=== PATIENT | female | born 1940 | race Caucasian/White ===

== ENCOUNTER 2018-11-26 12:16 | Outpatient (REF) | payer MEDICARE, MEDICAID, SELFPAY ==
[2018-11-26 13:05] LABS: PHENYTOIN (DILANTIN) < 0.5 ug/mL (10.0-20.0)
== END 2018-11-26 12:36 ==
LOC: LBN 12:16
PROVIDERS: PCP Family Medicine; Visit Provider Family Medicine
DX: G40.909 Epilepsy, unspecified, not intractable, without status epilepticus (principal); Z79.899 Other long term (current) drug therapy; Z51.81 Encounter for therapeutic drug level monitoring
CPT/HCPCS: 80185

== ENCOUNTER 2018-12-02 09:40 | Outpatient (CLI) | payer MEDICARE, MEDICAID, SELFPAY ==
[2018-12-02 10:57] LABS: Absolute Basophil Count 0.01 k/cumm (0.0-0.2); Absolute Eosinophil Count 0.08 k/cumm (0.0-0.7); Absolute Monocyte Count 0.38 k/cumm (0.11-0.7); Absolute Neutrophil Count 2.37 k/cumm (1.2-6.7); Basophils % 0.3; Eosinophils % 2.1; HCT 27.9 % (36.0-46.0); HGB 7.9 g/dL (12.0-15.5); Mean Corp. HGB Concentration 28.3 g/dL (32.0-36.0); Mean Corpuscular Hemoglobin 24.5 pg (27.0-33.0); Mean Corpuscular Volume 86.6 fL (80-95); Mean Platelet Volume 9.2 fL (8.0-11.0); Monocytes % 9.9; Neutrophils % 61.7; Platelet Count 215 x1000/uL (130-400); RBC 3.22 m/cumm (4.00-5.20); White Blood Cell Count 3.84 k/cumm (4.4-10.8)
[2018-12-02 11:26] LABS: Anisocytosis 3+; Diff Comment RBC Morph Reviewed; Hypochromasia 3+; Microcytosis 3+
[2018-12-02 11:27] LABS: Poikilocytes 1+
[2018-12-02 11:52] LABS: BUN 15 mg/dL (7-18); CREATININE 0.55 mg/dL (0.55-1.02); Calcium 8.2 mg/dL (8.5-10.1); Chloride 102 mmol/L (98-107); Glucose 109 mg/dL (70-100); Potassium 4.4 mmol/L (3.5-5.1); Sodium 139 mmol/L (136-145)
== END 2018-12-02 10:00 ==
PROVIDERS: PCP Family Medicine; Visit Provider Nurse Practitioner Adult Health
DX: G40.909 Epilepsy, unspecified, not intractable, without status epilepticus (principal); Z79.899 Other long term (current) drug therapy
CPT/HCPCS: 80048; 85025

== ENCOUNTER 2018-12-22 15:58 | Inpatient (IN) | payer MEDICARE, MEDICAID, SELFPAY ==
[2018-12-22] VITALS (17 sets, daily range): BP systolic 97–135; BP diastolic 44–77; PULSE 76–103; RESP 5–35; TEMP 36.5–36.8; O2SAT 95–98
--- NOTE | 2018-12-22 16:09 | W.ED.GENAD ---
Discharge Plan Discharge Details Chief Complaint: GenMedical Admit Date/Time: 12/22/18 19:08 Admit Provider: Ozzy Magaña Attending Provider: Ozzy Magaña Primary Care Provider: Lyle Salinas ED Provider: Olive Maki Discharge Data Discharge Date/Time-TO BE ENTERED AT DEPARTURE: 12/22/18 20:50 Medical Decision Making Kanchan Garcia is a 78 y/o woman with history of CHF, seizure disorder, hypertension, diabetes with recent admission to [facility] for bilateral pulmonary emboli, pleural effusion requiring thoracentesis, and pericardial effusion who presented to the emergency department for progressive weight gain at [facility]. On exam patient is elderly but nontoxic appearing. She is in no respiratory distress. She has bilateral pitting edema of the lower extremities without posterior calf tenderness to palpation. Heart rate is approximately 100. Hemoccult is positive. Concern for worsening edema anemia, volume overload, metabolic/lyte derangement, less likely ACS or infectious process. Exam/history is not consistent with worsening pulmonary emboli burden, sepsis, acute aortic pathology. Plan for EKG, chest x-ray, screening labs. Telemetry. Hemoglobin found to be 7 decreased from 7.9 on 12/02. BNP elevated as compared to BNP in the 600 range at [facility] prior to [facility] admission. Plan for admission for blood transfusion and management/further evaluation of CHF. Bedside ultrasound shows small pericardial effusion without tamponade. Patient consented to blood transfusion in the emergency department. Clinical Impression: anemia, CHF Disposition: [facility] inpatient Medical Records Medical records reviewed: Yes I reviewed the patient's medical records. Imaging Data Radiologic Study: Attestation: I personally reviewed and interpreted this imaging study as follows: Radiologist's impression: XR Chest, 2 Views EXAM DATE/TIME: 12/22/2018 5:03 PM CLINICAL HISTORY: 78 years old, female; Signs and symptoms; Shortness of breath and other: Weight gain TECHNIQUE: Imaging protocol: XR of the chest, 2 views. COMPARISON: CR XR CHEST 2V PA LATERAL 12/17/2018 8:49 AM FINDINGS: Lungs: Diffuse prominence of interstitial markings. More pronounced patchy airspace of opacities seen in the bilateral infrahilar regions, however more prominent in the left retrocardiac region. Subtle groundglass opacities also suggested throughout the lungs. Pleural space: Small bilateral pleural effusions are present, slightly larger on the left. There is also fluid layering along the right minor fissure. Heart/Mediastinum: There is severe cardiomegaly. Vasculature: Calcified aortic knob. Bones/joints: Stable bony thorax without acute thoracic pathology. IMPRESSION: Main diagnostic consideration would be that of early CHF, as manifested by interstitial and early alveolar pulmonary edema, as well as small bilateral pleural effusions. Superimposed infectious pneumonia should be entertained in the appropriate clinical setting. Lab Data Lab results reviewed: Yes I reviewed the patient's lab results. 12/22/18 20:34 Nose MRSA Screen - Pending Laboratory Tests Range/Units 12/22/18 12/22/18 12/22/18 17:15 17:15 17:15 WBC (4.4-10.8) k/cumm 5.33 RBC (4.00-5.20) m/cumm 2.62 L Hgb (12.0-15.5) g/dL 7.0 L Hct (36.0-46.0) % 23.9 L MCV (80-95) fL 91.2 MCH (27.0-33.0) pg 26.7 L MCHC (32.0-36.0) g/dL 29.3 L RDW (11.7-14.6) % 20.2 H Plt Count (130-400) x1000/uL 251 MPV (8.0-11.0) fL 8.4 Immature Gran % 0.2 Neutrophils % 65.8 Lymphocytes % 19.3 Monocytes % 12.4 Eosinophils % 1.9 Basophils % 0.4 Absolute Neutrophils (1.2-6.7) k/cumm 3.51 Absolute Lymphocytes (1.2-3.4) k/cumm 1.03 L Absolute Monocytes (0.11-0.7) k/cumm 0.66 Absolute Eosinophils (0.0-0.7) k/cumm 0.10 Absolute Basophils (0.0-0.2) k/cumm 0.02 Differential Comment Rbc morph reviewed RBC Morphology See below Polychromasia Present Hypochromasia 2+ Anisocytosis 2+ D-Dimer (<500) ng/mlFEU Sodium (136-145) mmol/L 140 Potassium (3.5-5.1) mmol/L 3.6 Chloride (98-107) mmol/L 100 Carbon Dioxide (21.0-32.0) mmol/L 36.3 H Anion Gap (3-11) mmol/L 3.7 BUN (7-18) mg/dL 10 Creatinine (0.55-1.02) mg/dL 0.49 L Estimated GFR/1.73 m2 (mL/min/1.73m2) >= 60.00 Glucose (70-100) mg/dL 119 H Calcium (8.5-10.1) mg/dL 7.9 L Total Bilirubin (0.2-1.0) mg/dL < 0.1 L AST (15-37) U/L 12 L ALT (12-78) U/L 14 Alkaline Phosphatase (46-116) U/L 84 Troponin I (0.00-0.06) ng/mL 0.05 NT-Pro-B Natriuret Pep ( - 299) pg/mL 2885 H Total Protein (6.4-8.2) g/dL 5.8 L Albumin (3.4-5.0) g/dL 2.4 L TSH (0.358-3.74) uIU/mL 3.30 Crossmatch Range/Units 12/22/18 12/22/18 17:15 20:11 WBC (4.4-10.8) k/cumm RBC (4.00-5.20) m/cumm Hgb (12.0-15.5) g/dL Hct (36.0-46.0) % MCV (80-95) fL MCH (27.0-33.0) pg MCHC (32.0-36.0) g/dL RDW (11.7-14.6) % Plt Count (130-400) x1000/uL MPV (8.0-11.0) fL Immature Gran % Neutrophils % Lymphocytes % Monocytes % Eosinophils % Basophils % Absolute Neutrophils (1.2-6.7) k/cumm Absolute Lymphocytes (1.2-3.4) k/cumm Absolute Monocytes (0.11-0.7) k/cumm Absolute Eosinophils (0.0-0.7) k/cumm Absolute Basophils (0.0-0.2) k/cumm Differential Comment RBC Morphology Polychromasia Hypochromasia Anisocytosis D-Dimer (<500) ng/mlFEU 560 H Sodium (136-145) mmol/L Potassium (3.5-5.1) mmol/L Chloride (98-107) mmol/L Carbon Dioxide (21.0-32.0) mmol/L Anion Gap (3-11) mmol/L BUN (7-18) mg/dL Creatinine (0.55-1.02) mg/dL Estimated GFR/1.73 m2 (mL/min/1.73m2) Glucose (70-100) mg/dL Calcium (8.5-10.1) mg/dL Total Bilirubin (0.2-1.0) mg/dL AST (15-37) U/L ALT (12-78) U/L Alkaline Phosphatase (46-116) U/L Troponin I (0.00-0.06) ng/mL NT-Pro-B Natriuret Pep ( - 299) pg/mL Total Protein (6.4-8.2) g/dL Albumin (3.4-5.0) g/dL TSH (0.358-3.74) uIU/mL Crossmatch See Detail ECG Data Attestation: I personally reviewed and interpreted this ECG (s) as follows: Interpretation: EKG shows sinus rhythm at 83, normal axis, anterior T wave inversions, no prior available HPI General Mode of arrival: EMS. Date/Time Provider Initiated Documentation: 12/22/18 16:09. Limitations to Documentation: no limitations. Information obtained by: patient, RN notes reviewed and old records reviewed. HPI Narrative: Kanchan Garcia is a 78 y/o woman with history of CHF, meningioma, seizure disorder, hypertension, diabetes who is currently residing at [facility] who was sent to the emergency department for weight gain. Per records sent from alf, patient [place] [facility] with concerns for possible [place], there she was found to have CHF. She was transferred to [facility] where she was treated for respiratory distress, CHF, bilateral pulmonary emboli, pleural effusion with thoracentesis, and pericardial effusion. Patient was discharged to [facility]. On 12/02 she had a hemoglobin of 7.9. She has gained approximately 20 pounds since December 10. Patient reports that she feels very well and has no symptoms. She does note swelling in her lower extremities, but she is unsure if this is worse than baseline. She denies cough, shortness of breath, fever, vomiting, diarrhea, or any pain. Related Data Home Medications Medication Instructions Recorded Confirmed metformin 1,000 mg PO BID 11/03/13 12/22/18 metoprolol succinate 12.5 mg PO DAILY 11/03/13 12/22/18 simvastatin 10 mg PO HS 11/03/13 12/22/18 acetaminophen 325 mg PO Q6H PRN 12/22/18 12/22/18 aspirin 81 mg PO DAILY 12/22/18 12/22/18 bisacodyl 10 mg DE DAILY PRN PRN 12/22/18 12/22/18 cyanocobalamin (vitamin B-12) 1,000 mcg PO DAILY 12/22/18 12/23/18 [Vitamin B-12] ferrous sulfate 325 mg PO DAILY 12/22/18 12/22/18 folic acid 800 mg PO DAILY 12/22/18 12/22/18 furosemide [Lasix] 20 mg PO DAILY 12/22/18 12/22/18 glucagon (human recombinant) 1 mg SUBCUT DIRECTED 12/22/18 12/22/18 [Glucagon Emergency Kit (human)] glucose 10 g PO ONCE PRN 12/22/18 12/22/18 insulin lispro See Rx Instructions .ROUTE .COMPLEX 12/22/18 12/22/18 levetiracetam [Keppra] 1,000 mg PO BID 12/22/18 12/22/18 magnesium hydroxide [Milk of 30 ml PO HS PRN 12/22/18 12/22/18 Magnesia] melatonin 6 mg PO .QHS 12/22/18 12/22/18 pantoprazole [Protonix] 40 mg PO DAILY 12/22/18 12/22/18 phenytoin sodium extended 200 mg PO BID 12/22/18 12/22/18 [Dilantin Extended] polyethylene glycol 3350 [Miralax] 17 gm PO DAILY PRN PRN 12/22/18 12/22/18 warfarin [Coumadin] 7.5 mg PO QPM 12/22/18 12/22/18 Allergies Allergy/AdvReac Type Severity Reaction Status Date / Time No Known Allergies Allergy Unverified 12/22/18 16:28 Review of Systems Review of Systems Constitutional: denies fevers Eyes: denies eye pain ENT: denies facial pain, dental pain, sore throat Cardiovascular: denies chest pain, reports lower extremity edema Respiratory: denies SOB, cough GI: denies abdominal pain, vomiting, diarrhea : denies flank pain MSK: denies back pain, neck pain, arthralgias, myalgias Skin: denies rash Neuro: denies headaches, numbness, weakness PFSH Medical History Pericardial effusion without cardiac tamponade (Chronic) H/O carotid atherosclerosis (Chronic) Adenomatous polyp (Chronic) History of meningioma of the brain (Chronic) Seizure disorder (Chronic) Essential hypertension (Chronic) Diabetes type 2, controlled (Chronic) Diastolic heart failure (Chronic ~10/2018) Hypercapnic respiratory failure (Resolved ~10/2018) Adenomatous polyp Diabetes mellitus Hypercholesterolemia Hypertension Murmur Osteopenia Tobacco use Surgical History History of right-sided carotid endarterectomy (Chronic) BTL Colonoscopy - MAC (07/15/17) Endarterectomy, right Extraction of cataract Family History Mother Essential hypertension ASCVD (arteriosclerotic cardiovascular disease) Father Essential hypertension Social History Smoking/Tobacco Use Status: Former Tobacco Use Drug use: Never Exam Narrative Exam Narrative: Constitutional: Elderly but [id number], pleasant, conversing normally HENT: head atraumatic/normocephalic/normal inspection, mucous membranes moist Eyes: conjunctiva normal, sclera normal, pupils 3mm b/l Neck: no stridor, normal ROM, trachea midline Chest: normal inspection Resp: normal work of breathing, rales bilateral lower lobes Cardio: normal rate, normal rhythm, no murmur appreciated GI: abdomen soft, non-tender, non-distended, hemoccult positive, otherwise normal rectal exam Back: normal inspection, no rash Skin: warm, dry, normal color, no rash Neuro: alert, not altered, grossly non-focal, normal tone Ext: 2-3+ pitting edema bilateral lower extremities, no posterior calf tenderness Psych: normal mood, normal affect, normal behavior
--- NOTE | 2018-12-22 17:01 | DI.RAD_ITS ---
SYMPTOMS/DIAGNOSIS: WT GAIN, ? SOB AP AND LATERAL CHEST: Comparison is made with [id number]. The heart is again noted to be grossly enlarged. There are small bilateral pleural effusions. There is vascular prominence and mildly increased interstitial markings which may indicate mild CHF. IMPRESSION: Cardiomegaly and mild CHF.
[2018-12-22 17:40] LABS: Abs Immature Grans 0.01 k/cumm (0.0-0.09); Absolute Basophil Count 0.02 k/cumm (0.0-0.2); Absolute Lymphocyte Count 1.03 k/cumm (1.2-3.4); Absolute Monocyte Count 0.66 k/cumm (0.11-0.7); Absolute Neutrophil Count 3.51 k/cumm (1.2-6.7); Basophils % 0.4; Eosinophils % 1.9; HCT 23.9 % (36.0-46.0); Immature Grans % 0.2; Lymphocytes % 19.3; Mean Corp. HGB Concentration 29.3 g/dL (32.0-36.0); Mean Corpuscular Hemoglobin 26.7 pg (27.0-33.0); Mean Corpuscular Volume 91.2 fL (80-95); Mean Platelet Volume 8.4 fL (8.0-11.0); Monocytes % 12.4; Neutrophils % 65.8; Platelet Count 251 x1000/uL (130-400); RBC 2.62 m/cumm (4.00-5.20); RBC Distribution Width 20.2 % (11.7-14.6); White Blood Cell Count 5.33 k/cumm (4.4-10.8)
[2018-12-22 17:52] LABS: ALT 14 U/L (12-78); AST 12 U/L (15-37); Albumin 2.4 g/dL (3.4-5.0); Alkaline Phosphatase 84 U/L (46-116); Anion Gap 3.7 mmol/L (3-11); BUN 10 mg/dL (7-18); CO2 36.3 mmol/L (21.0-32.0); CREATININE 0.49 mg/dL (0.55-1.02); Calcium 7.9 mg/dL (8.5-10.1); Chloride 100 mmol/L (98-107); Glucose 119 mg/dL (70-100); Potassium 3.6 mmol/L (3.5-5.1); Sodium 140 mmol/L (136-145); Total Protein 5.8 g/dL (6.4-8.2)
[2018-12-22 17:57] LABS: Bilirubin, Total < 0.1 mg/dL (0.2-1.0)
[2018-12-22 17:58] LABS: Anisocytosis 2+; Diff Comment RBC Morph Reviewed; Hypochromasia 2+; NT-proBNP 2885 pg/mL; Polychromasia Present; Troponin I 0.05 ng/mL (0.00-0.06)
[2018-12-22 18:00] LABS: D-Dimer 560 ng/mlFEU (<500)
--- NOTE | 2018-12-22 18:10 | DI.VRAD_ITS ---
EXAM: XR Chest, 2 Views EXAM DATE/TIME: 12/22/2018 5:03 PM CLINICAL HISTORY: 78 years old, female; Signs and symptoms; Shortness of breath and other: Weight gain TECHNIQUE: Imaging protocol: XR of the chest, 2 views. COMPARISON: CR XR CHEST 2V PA LATERAL 12/17/2018 8:49 AM FINDINGS: Lungs: Diffuse prominence of interstitial markings. More pronounced patchy airspace of opacities seen in the bilateral infrahilar regions, however more prominent in the left retrocardiac region. Subtle groundglass opacities also suggested throughout the lungs. Pleural space: Small bilateral pleural effusions are present, slightly larger on the left. There is also fluid layering along the right minor fissure. Heart/Mediastinum: There is severe cardiomegaly. Vasculature: Calcified aortic knob. Bones/joints: Stable bony thorax without acute thoracic pathology. IMPRESSION: Main diagnostic consideration would be that of early CHF, as manifested by interstitial and early alveolar pulmonary edema, as well as small bilateral pleural effusions. Superimposed infectious pneumonia should be entertained in the appropriate clinical setting. Dictated and Authenticated by: Armen Altamirano MD. Ordering:JENNIFER Schaefer MD
--- NOTE | 2018-12-22 20:43 | ED.GENADUL_ITS ---
Discharge Plan Discharge Details Chief Complaint: GenMedical Admit Date/Time: 12/22/18 19:08 Admit Provider: Ozzy Magaña Attending Provider: Ozzy Magaña Primary Care Provider: Lyle Salinas ED Provider: Olive Maki Discharge Data Discharge Date/Time-TO BE ENTERED AT DEPARTURE: 12/22/18 20:50 Medical Decision Making Kanchan Garcia is a 78 y/o woman with history of CHF, seizure disorder, hypertension, diabetes with recent admission to [facility] for bilateral p ulmonary emboli, pleural effusion requiring thoracentesis, and pericardial effusion who presented to the emergency department for progressive weight gain at [facility]. On exam patient is elderly but nontoxic appearing. She is in no respiratory distress. She has bilateral pitting edema of the lower extremities without posterior calf tenderness to palpation. Heart rate is approximately 100. Hemoccult is positive. Concern for worsening edema anemia, volume overload, metabolic/lyte derangement, less likely ACS or infectious process. Exam/history is not consistent with worsening pulmonary emboli burden, sepsis, acute aortic pathology. Plan for EKG, chest x-ray, screening labs. Telemetry. Hemoglobin found to be 7 decreased from 7.9 on 12/02. BNP elevated as compared to BNP in the 600 range at [facility] prior to [facility] admission. Plan for admission for blood transfusion and management/further evaluation of CHF. Bedside ultrasound shows small pericardial effusion without tamponade. Patient consented to blood transfusion in the emergency department. Clinical Impression: anemia, CHF Disposition: [facility] inpatient Medical Records Medical records reviewed: Yes I reviewed the patient's medical records. Imaging Data Radiologic Study: Attestation: I personally reviewed and interpreted this imaging study as follows: Radiologist's impression: XR Chest, 2 Views EXAM DATE/TIME: 12/22/2018 5:03 PM CLINICAL HISTORY: 78 years old, female; Signs and symptoms; Shortness of breath and other: Weight gain TECHNIQUE: Imaging protocol: XR of the chest, 2 views. COMPARISON: CR XR CHEST 2V PA LATERAL 12/17/2018 8:49 AM FINDINGS: Lungs: Diffuse prominence of interstitial markings. More pronounced patchy airspace of opacities seen in the bilateral infrahilar regions, however more prominent in the left retrocardiac region. Subtle groundglass opacities also suggested throughout the lungs. Pleural space: Small bilateral pleural effusions are present, slightly larger on the left. There is also fluid layering along the right minor fissure. Heart/Mediastinum: There is severe cardiomegaly. Vasculature: Calcified aortic knob. Bones/joints: Stable bony thorax without acute thoracic pathology. IMPRESSION: Main diagnostic consideration would be that of early CHF, as manifested by interstitial and early alveolar pulmonary edema, as well as small bilateral pleural effusions. Superimposed infectious pneumonia should be entertained in the appropriate clinical setting. Lab Data Lab results reviewed: Yes I reviewed the patient's lab results. 12/22/18 20:34 Nose MRSA Screen - Pending Laboratory Tests Range/Units 12/22/18 12/22/18 12/22/18 17:15 17:15 17:15 WBC (4.4-10.8) k/cumm 5.33 RBC (4.00-5.20) m/cumm 2.62 L Hgb (12.0-15.5) g/dL 7.0 L Hct (36.0-46.0) % 23.9 L MCV (80-95) fL 91.2 MCH (27.0-33.0) pg 26.7 L MCHC (32.0-36.0) g/dL 29.3 L RDW (11.7-14.6) % 20.2 H Plt Count (130-400) x1000/uL 251 MPV (8.0-11.0) fL 8.4 Immature Gran % 0.2 Neutrophils % 65.8 Lymphocytes % 19.3 Monocytes % 12.4 Eosinophils % 1.9 Basophils % 0.4 Absolute Neutrophils (1.2-6.7) k/cumm 3.51 Absolute Lymphocytes (1.2-3.4) k/cumm 1.03 L Absolute Monocytes (0.11-0.7) k/cumm 0.66 Absolute Eosinophils (0.0-0.7) k/cumm 0.10 Absolute Basophils (0.0-0.2) k/cumm 0.02 Differential Comment Rbc morph reviewed RBC Morphology See below Polychromasia Present Hypochromasia 2+ Anisocytosis 2+ D-Dimer (<500) ng/mlFEU Sodium (136-145) mmol/L 140 Potassium (3.5-5.1) mmol/L 3.6 Chloride (98-107) mmol/L 100 Carbon Dioxide (21.0-32.0) mmol/L 36.3 H Anion Gap (3-11) mmol/L 3.7 BUN (7-18) mg/dL 10 Creatinine (0.55-1.02) mg/dL 0.49 L Estimated GFR/1.73 m2 (mL/min/1.73m2) >= 60.00 Glucose (70-100) mg/dL 119 H Calcium (8.5-10.1) mg/dL 7.9 L Total Bilirubin (0.2-1.0) mg/dL < 0.1 L AST (15-37) U/L 12 L ALT (12-78) U/L 14 Alkaline Phosphatase (46-116) U/L 84 Troponin I (0.00-0.06) ng/mL 0.05 NT-Pro-B Natriuret Pep ( - 299) pg/mL 2885 H Total Protein (6.4-8.2) g/dL 5.8 L Albumin (3.4-5.0) g/dL 2.4 L TSH (0.358-3.74) uIU/mL 3.30 Crossmatch Range/Units 12/22/18 12/22/18 17:15 20:11 WBC (4.4-10.8) k/cumm RBC (4.00-5.20) m/cumm Hgb (12.0-15.5) g/dL Hct (36.0-46.0) % MCV (80-95) fL MCH (27.0-33.0) pg MCHC (32.0-36.0) g/dL RDW (11.7-14.6) % Plt Count (130-400) x1000/uL MPV (8.0-11.0) fL Immature Gran % Neutrophils % Lymphocytes % Monocytes % Eosinophils % Basophils % Absolute Neutrophils (1.2-6.7) k/cumm Absolute Lymphocytes (1.2-3.4) k/cumm Absolute Monocytes (0.11-0.7) k/cumm Absolute Eosinophils (0.0-0.7) k/cumm Absolute Basophils (0.0-0.2) k/cumm Differential Comment RBC Morphology Polychromasia Hypochromasia Anisocytosis D-Dimer (<500) ng/mlFEU 560 H Sodium (136-145) mmol/L Potassium (3.5-5.1) mmol/L Chloride (98-107) mmol/L Carbon Dioxide (21.0-32.0) mmol/L Anion Gap (3-11) mmol/L BUN (7-18) mg/dL Creatinine (0.55-1.02) mg/dL Estimated GFR/1.73 m2 (mL/min/1.73m2) Glucose (70-100) mg/dL Calcium (8.5-10.1) mg/dL Total Bilirubin (0.2-1.0) mg/dL AST (15-37) U/L ALT (12-78) U/L Alkaline Phosphatase (46-116) U/L Troponin I (0.00-0.06) ng/mL NT-Pro-B Natriuret Pep ( - 299) pg/mL Total Protein (6.4-8.2) g/dL Albumin (3.4-5.0) g/dL TSH (0.358-3.74) uIU/mL Crossmatch See Detail ECG Data Attestation: I personally reviewed and interpreted this ECG (s) as follows: Interpretation: EKG shows sinus rhythm at 83, normal axis, anterior T wave inversions, no prior available HPI General Mode of arrival: EMS . Date/Time Provider Initiated Documentation: 12/22/18 16:09 . Limitations to Documentation: no limitations . Information obtained by: patient, RN notes reviewed and old records reviewed . HPI Narrative: Kanchan Garcia is a 78 y/o woman with history of CHF, meningioma, seizure disorder, hypertension, diabetes who is currently residing at [facility] who was sent to the emergency department for weight gain. Per records sent from alf, patient presented to [facility] in November with concerns for possible [place], there she was found to have CHF. She was transferred to [facility] where she was treated for respiratory distress, CHF, bilateral pulmonary emboli, pleural effusion with thoracentesis, and pericardial effusion. Patient was discharged to [facility]. On 12/02 she had a hemoglobin of 7.9. She has gained approximately 20 pounds since December 10. Patient reports that she feels very well and has no symptoms. She does note swelling in her lower extremities, but she is unsure if this is worse than baseline. She denies cough, shortness of breath, fever, vomiting, diarrhea, or any pain. Related Data Home Medications Medication Instructions Recorded Confirmed metformin 1,000 mg PO BID 11/03/13 12/22/18 metoprolol succinate 12.5 mg PO DAILY 11/03/13 12/22/18 simvastatin 10 mg PO HS 11/03/13 12/22/18 acetaminophen 325 mg PO Q6H PRN 12/22/18 12/22/18 aspirin 81 mg PO DAILY 12/22/18 12/22/18 bisacodyl 10 mg [place] DAILY PRN PRN 12/22/18 12/22/18 cyanocobalamin (vitamin B-12) 1,000 mcg PO DAILY 12/22/18 12/23/18 [Vitamin B-12] ferrous sulfate 325 mg PO DAILY 12/22/18 12/22/18 folic acid 800 mg PO DAILY 12/22/18 12/22/18 furosemide [Lasix] 20 mg PO DAILY 12/22/18 12/22/18 glucagon (human recombinant) 1 mg SUBCUT DIRECTED 12/22/18 12/22/18 [Glucagon Emergency Kit (human)] glucose 10 g PO ONCE PRN 12/22/18 12/22/18 insulin lispro See Rx Instructions .ROUTE .COMPLEX 12/22/18 12/22/18 levetiracetam [Keppra] 1,000 mg PO BID 12/22/18 12/22/18 magnesium hydroxide [Milk of 30 ml PO HS PRN 12/22/18 12/22/18 Magnesia] melatonin 6 mg PO .QHS 12/22/18 12/22/18 pantoprazole [Protonix] 40 mg PO DAILY 12/22/18 12/22/18 phenytoin sodium extended 200 mg PO BID 12/22/18 12/22/18 [Dilantin Extended] polyethylene glycol 3350 [Miralax] 17 gm PO DAILY PRN PRN 12/22/18 12/22/18 warfarin [Coumadin] 7.5 mg PO QPM 12/22/18 12/22/18 Allergies Allergy/AdvReac Type Severity Reaction Status Date / Time No Known Allergies Allergy Unverified 12/22/18 16:28 Review of Systems Review of Systems Constitutional: denies fevers Eyes: denies eye pain ENT: denies facial pain, dental pain, sore throat Cardiovascular: denies chest pain, reports lower extremity edema Respiratory: denies SOB, cough GI: denies abdominal pain, vomiting, diarrhea : denies flank pain MSK: denies back pain, neck pain, arthralgias, myalgias Skin: denies rash Neuro: denies headaches, numbness, weakness PFSH Medical History Pericardial effusion without cardiac tamponade (Chronic) H/O carotid atherosclerosis (Chronic) Adenomatous polyp (Chronic) History of meningioma of the brain (Chronic) Seizure disorder (Chronic) Essential hypertension (Chronic) Diabetes type 2, controlled (Chronic) Diastolic heart failure (Chronic ~10/2018) Hypercapnic respiratory failure (Resolved ~10/2018) Adenomatous polyp Diabetes mellitus Hypercholesterolemia Hypertension Murmur Osteopenia Tobacco use Surgical History History of right-sided carotid endarterectomy (Chronic) BTL Colonoscopy - MAC (07/15/17) Endarterectomy, right Extraction of cataract Family History Mother Essential hypertension ASCVD (arteriosclerotic cardiovascular disease) Father Essential hypertension Social History Smoking/Tobacco Use Status: Former Tobacco Use Drug use: Never Exam Narrative Exam Narrative: Constitutional: Elderly but [id number], pleasant, conversing normally HENT: head atraumatic/normocephalic/normal inspection, mucous membranes moist Eyes: conjunctiva normal, sclera normal, pupils 3mm b/l Neck: no stridor, normal ROM, trachea midline Chest: normal inspection Resp: normal work of breathing, rales bilateral lower lobes Cardio: normal rate, normal rhythm, no murmur appreciated GI: abdomen soft, non-tender, non-distended, hemoccult positive, otherwise normal rectal exam Back: normal inspection, no rash Skin: warm, dry, normal color, no rash Neuro: alert, not altered, grossly non-focal, normal tone Ext: 2-3+ pitting edema bilateral lower extremities, no posterior calf tenderness Psych: normal mood, normal affect, normal behavior
--- NOTE | 2018-12-22 21:21 | W.PM.HP.N ---
Date of service: 12/22/18 Time of Service: 21:21 Assessment and Plan (1) Acute on chronic diastolic CHF (congestive heart failure): Current visit: Yes Status: Acute give parenteral lasix and start on lasix drip overnight to diurese; transfuse PRBC to treat her anemia as she likely has high output CHF from her anemia. Unfortunately she has some atypical antibodies and will require further antibody testing in the a.m. Continue to cycle her troponin levels to rule out ACS although she denies any chest pain/pressure. (2) Anemia: Current visit: Yes Status: Chronic transfuse to Hb over 8 gm, particularly since she has CHF she will not tolerate the tachycardia induced by her anemia. Unclear as to source. Prior rectal exams negative for heme. Will check her stool again and get further iron studies, B12, folate, etc. (3) Diabetes type 2, controlled: Current visit: No Status: Chronic monitor her glucose and cover w/ sliding scale insulin (4) Essential hypertension: Current visit: No Status: Chronic her amlodipine and lisinopril were discontinued while at [facility] and never restarted while at [facility]. Unclear as to why. I will keep her on her toprol and monitor her BP particularly after she gets her transfusion. (5) Seizure disorder: Current visit: No Status: Chronic No hx of recent seizures. She is on two AED's, dilantin and Keppra. History of Present Illness Chief Complaint: 19 lb weight gain, edema, anemia Narrative: 78-year-old female recuperating at [facility] after an admission to [facility] from 10/26 through 11/02/2018 for rule out NV and found to have new onset CHF. Initial work-up demonstrated a proBNP of 639, transthoracic echocardiogram showed preserved ejection fraction of 58% with elevated MIP and LVEDP along with a moderate pericardial effusion with no Anderson nod and large pleural effusion. Despite diuresis the patient worsened and developed lethargy and hypercapnic respiratory failure requiring BiPAP and transferred to [facility] on 11/02/2018. While hospitalized at [facility] she was initially treated in the intensive care unit from November 02 through November 03, 2018 with BiPAP noninvasive positive pressure ventilation and diuresed with IV Lasix. Repeat TTE showed a small pericardial effusion and ejection fraction of 80% with no wall motion abnormality. Chest x-ray showed moderate left-sided pleural effusion. She underwent a diagnostic and therapeutic thoracentesis on November 07, 2018 in which 800 cc of exudative fluid was removed with atypical cytology suggestive of reactive mesothelial cells. Because of continued hypoxemia and need for oxygen subsequent CT of the chest was performed on 11/15/2018 and demonstrates subsegmental pulmonary emboli in the apical segment of the right upper lobe in the lateral basal segment of the right lower lobe. Patient has signs of right heart congestion and strain including enlargement of the right ventricle relative to the left ventricle and enlargement of the right atrium and reflux of contrast in the IVC and hepatic veins. She also had signs of pulmonary arterial hypertension with dilatation of the main pulmonary artery and small bilateral pleural effusions and pericardial effusion. Also an unexpected finding including peripherally calcified fluid attenuation nodule along the anterior margin of the left hepatic lobe measuring 11 x 6 x 7 mm. Duplex scans of the legs was negative for DVT.. Patient was treated initially for her pulmonary emboli with enoxaparin. She was converted to Coumadin for 3 months of therapy. While at the assisted her warfarin dose was adjusted and varied between 7 and 10 mg with the most recent dose being 7.5 mg and her latest INR was 2.2 this morning. Patient was seen and evaluated by Gila Mckinney CNP, on the morning of December 22, 2018 and she noted that the patient has had progressive weight gain over last 2 weeks. Her admission weight was 163 pounds upon admission to [facility]. This reportedly was a 17 pound weight loss due to diuresis while hospitalized at [facility]. Nevertheless her weight went up to 173 pounds on December 04, 2018 and 174 pounds on December 10, 2018 and by December 19, 2018 she was up to 183 pounds and over this past weekend gained another 9 pounds 192 pounds. This is similar to her presentation when she first was admitted to [facility]. She was also noted to be anemic when she was admitted to [facility] with a hemoglobin of 6.6 g which after transfusion noa to 8.6 g and then drifted down to 8.1 g. Reportedly her stool was negative for occult blood. She was transferred to [facility] emergency room because of exacerbation of CHF and concern out of worsening anemia. In the emergency room the patient had routine labs including a CMP that showed normal BUN and creatinine of 10 and 0.49 normal LFTs been elevated proBNP of 2885. Troponin was 0.05. CBC demonstrated worsening anemia with a hemoglobin of 7 g and hematocrit 23.9%. She has a normal white cell count 5300. Chest x-ray was performed and demonstrated diffuse prominent interstitial markings with more pronounced patchy airspace opacities in the bilateral infrahilar regions as well as the left retrocardiac region and subtle groundglass opacities throughout the lungs. She has small bilateral pleural effusions present slightly larger on the left and severe cardiomegaly. These findings are all consistent with CHF exacerbation. Patient is now admitted overnight for blood transfusion and IV diuretics for serial troponin levels to rule out acute coronary syndrome. ECG demonstrates sinus rhythm at a rate of 83 bpm with diffuse anterior T wave abnormalities. Nevertheless the patient denies any symptoms of chest pain or pressure and in fact denies any dyspnea. However the patient is a poor historian and basically denies any pertinent review of systems. Review of Systems Review of Systems All systems reviewed & are unremarkable except as noted in HPI and below Cardiovascular Denies chest pain, Denies chest pain at rest, Reports pedal edema, Reports leg edema, Reports lightheadedness, Denies palpitations, Denies dyspnea and Denies orthopnea Respiratory Denies dyspnea Endocrine Denies palpitations PFSH Medical History Pericardial effusion without cardiac tamponade (Chronic) H/O carotid atherosclerosis (Chronic) Adenomatous polyp (Chronic) History of meningioma of the brain (Chronic) Seizure disorder (Chronic) Essential hypertension (Chronic) Diabetes type 2, controlled (Chronic) Diastolic heart failure (Chronic ~10/2018) Hypercapnic respiratory failure (Resolved ~10/2018) Adenomatous polyp Diabetes mellitus Hypercholesterolemia Hypertension Murmur Osteopenia Tobacco use Surgical History History of right-sided carotid endarterectomy (Chronic) BTL Colonoscopy - MAC (07/15/17) Endarterectomy, right Extraction of cataract Family History Mother Essential hypertension ASCVD (arteriosclerotic cardiovascular disease) Father Essential hypertension Social History Smoking/Tobacco Use Status: Former Tobacco Use Drug use: Never Meds Home Medications Medication Instructions Recorded Confirmed Type metformin 1,000 mg PO BID 11/03/12/22/18 History metoprolol succinate 12.5 mg PO DAILY 11/03/13 12/22/18 History simvastatin 10 mg PO HS 11/03/13 12/22/18 History acetaminophen 325 mg PO Q6H PRN 12/22/18 12/22/18 History aspirin 81 mg PO DAILY 12/22/18 12/22/18 History bisacodyl 10 mg SD DAILY PRN PRN 12/22/18 12/22/18 History cyanocobalamin (vitamin B-12) 1 mcg PO DAILY 12/22/18 12/22/18 History [Vitamin B-12] ferrous sulfate 325 mg PO DAILY 12/22/18 12/22/18 History folic acid 800 mg PO DAILY 12/22/18 12/22/18 History furosemide [Lasix] 20 mg PO DAILY 12/22/18 12/22/18 History glucagon (human recombinant) 1 mg SUBCUT DIRECTED 12/22/18 12/22/18 History [Glucagon Emergency Kit (human)] glucose 10 g PO ONCE PRN 12/22/18 12/22/18 History insulin lispro See Rx Instructions .ROUTE .COMPLEX 12/22/18 12/22/18 History levetiracetam [Keppra] 1,000 mg PO BID 12/22/18 12/22/18 History magnesium hydroxide [Milk of 30 ml PO HS PRN 12/22/18 12/22/18 History Magnesia] melatonin 6 mg PO .QHS 12/22/18 12/22/18 History pantoprazole [Protonix] 40 mg PO DAILY 12/22/18 12/22/18 History phenytoin sodium extended 200 mg PO BID 12/22/18 12/22/18 History [Dilantin Extended] polyethylene glycol 3350 [Miralax] 17 gm PO DAILY PRN PRN 12/22/18 12/22/18 History warfarin [Coumadin] 7.5 mg PO QPM 12/22/18 12/22/18 History Allergies Allergy/AdvReac Type Severity Reaction Status Date / Time No Known Allergies Allergy Unverified 12/22/18 16:28 Exam Const General: cooperative, not in acute distress and ill appearing chronically Nutritional Appearance: overweight Orientation: alert, awake and oriented to person [facility] Head: normal to inspection, no palpable skull fracture, normocephalic and atraumatic Ears: hearing grossly normal bilaterally Face and sinus: normal facial exam Mouth: oral mucosae normal Teeth and gingiva: dentition normal Neck Neck: normal visual inspection, full ROM and no JVD Thyroid: thyroid normal Carotids: bounding pulses and bruit bilaterally Chest Chest: normal inspection of the chest and normal palpation of entire chest wall Resp Effort & Inspection: normal respiratory effort Auscultation: rales bilaterally at the base Cardio Jugular venous pressure: no JVD Palpation: normal PMI Rate: regular rate Rhythm: regular rhythm Heart Sounds: S1 normal, S2 normal and murmur systolic early, III/ and at the left sternal border Bruits: no abdominal aortic bruits and carotid bruit bilaterally Pulses: posterior tibial pulses present bilaterally diminished and dorsalis pedis pulses present bilaterally diminished GI Inspection: scar (right upper quadrant) Palpation: soft and no hepatosplenomegaly Percussion: normal to percussion Auscultation: normal bowel sounds General: No CVA tenderness Back/Spine/Pelvis Back: no CVA tenderness Cervical Spine: normal cervical lordosis Thoracic/Lumbar Spine: thoracic and lumbar spine normal to inspection Skin Wounds: wounds noted ulceration sacrum Neuro General: alert, awake, oriented Patient Orientation: Person, Place (she knows that she is in the hospital) and Confused (poor historian; when I asked her about her surgical scars she seemed to know nothing about them), moves all extremities and no focal motor deficits Cranial Nerves: PERRL, accommodation normal, EOM intact bilaterally, no nystagmus, facial strength normal, tongue midline, hearing normal, able to rotate head bilaterally and able to elevate shoulders bilaterally Cognition: abnormal cognition Speech: speech normal Motor: muscle tone normal throughout and no movement abnormalities noted Extrem General: full ROM, normal capillary refill, no joint enlargement, edema Laterality: bilateral (2+ edema of both legs and both feet) and pedal edema bilaterally Psych Appearance: grossly normal Speech and Movement: speech and movement normal Mood: congruent mood Affect: normal affect Attitude: cooperative Thought Process: circumstantial Thought Content: normal Insight: limited Judgment: limited Results Imaging Chest x-ray: image reviewed EKG: image reviewed Labs : 12/22/18 17:15 12/22/18 17:15 Laboratory Results - last 24 hr 12/22/18 12/22/18 12/22/18 17:15 17:15 17:15 WBC 5.33 RBC 2.62 L Hgb 7.0 L Hct 23.9 L MCV 91.2 MCH 26.7 L MCHC 29.3 L RDW 20.2 H Plt Count 251 MPV 8.4 Immature Gran % 0.2 Neutrophils % 65.8 Lymphocytes % 19.3 Monocytes % 12.4 Eosinophils % 1.9 Basophils % 0.4 Absolute Neutrophils 3.51 Absolute Lymphocytes 1.03 L Absolute Monocytes 0.66 Absolute Eosinophils 0.10 Absolute Basophils 0.02 Differential Comment Rbc morph reviewed RBC Morphology See below Polychromasia Present Hypochromasia 2+ Anisocytosis 2+ D-Dimer Sodium 140 Potassium 3.6 Chloride 100 Carbon Dioxide 36.3 H Anion Gap 3.7 BUN 10 Creatinine 0.49 L Estimated GFR/1.73 m2 >= 60.00 Glucose 119 H Calcium 7.9 L Total Bilirubin < 0.1 L AST 12 L ALT 14 Alkaline Phosphatase 84 Troponin I 0.05 NT-Pro-B Natriuret Pep 2885 H Total Protein 5.8 L Albumin 2.4 L TSH 3.30 Crossmatch 12/22/18 12/22/18 17:15 20:11 WBC RBC Hgb Hct MCV MCH MCHC RDW Plt Count MPV Immature Gran % Neutrophils % Lymphocytes % Monocytes % Eosinophils % Basophils % Absolute Neutrophils Absolute Lymphocytes Absolute Monocytes Absolute Eosinophils Absolute Basophils Differential Comment RBC Morphology Polychromasia Hypochromasia Anisocytosis D-Dimer 560 H Sodium Potassium Chloride Carbon Dioxide Anion Gap BUN Creatinine Estimated GFR/1.73 m2 Glucose Calcium Total Bilirubin AST ALT Alkaline Phosphatase Troponin I NT-Pro-B Natriuret Pep Total Protein Albumin TSH Crossmatch See Detail Last Vital Signs Temp 36.6 C 12/22/18 16:21 Pulse 103 H 12/22/18 16:21 Resp 16 12/22/18 19:01 BP 123/44 L 12/22/18 16:21 Pulse Ox 96 12/22/18 16:21
[2018-12-22 22:33] LABS: Troponin I 0.04 ng/mL (0.00-0.06)
[2018-12-23] VITALS (149 sets, daily range): BP systolic 88–145; BP diastolic 40–94; PULSE 63–96; RESP 15–35; TEMP 36.4–37.8; O2SAT 85–100
[2018-12-23] MEDS: Warfarin 5 MG TAB 7.5 MG PO (00:06)
[2018-12-23] MEDS: Melatonin 3 MG TAB 6 MG PO ×2 (00:06→21:17)
[2018-12-23] MEDS: Simvastatin 10 MG TAB PO ×2 (00:06→21:17)
[2018-12-23] MEDS: Normal Saline Flush 10 ML SYR IVP ×5 (00:07→19:44)
[2018-12-23] MEDS: Potassium Chloride 10 MEQ CAPCR 20 MEQ PO ×3 (00:14→19:43)
[2018-12-23] MEDS: Furosemide 20 MG/2 ML VIAL IVP (00:15)
[2018-12-23 01:32] LABS: Troponin I 0.04 ng/mL (0.00-0.06)
[2018-12-23 07:54] LABS: Abs Immature Grans 0.01 k/cumm (0.0-0.09); Absolute Basophil Count 0.01 k/cumm (0.0-0.2); Absolute Lymphocyte Count 0.92 k/cumm (1.2-3.4); Absolute Monocyte Count 0.53 k/cumm (0.11-0.7); Absolute Neutrophil Count 2.11 k/cumm (1.2-6.7); Basophils % 0.3; Eosinophils % 2.7; HCT 23.1 % (36.0-46.0); Immature Grans % 0.3; Mean Corp. HGB Concentration 28.1 g/dL (32.0-36.0); Mean Corpuscular Hemoglobin 25.8 pg (27.0-33.0); Mean Corpuscular Volume 91.7 fL (80-95); Mean Platelet Volume 8.6 fL (8.0-11.0); Monocytes % 14.4; Neutrophils % 57.3; Platelet Count 246 x1000/uL (130-400); RBC 2.52 m/cumm (4.00-5.20); Reticulocyte 2.5 % (0.5-2.4); White Blood Cell Count 3.68 k/cumm (4.4-10.8)
[2018-12-23 07:58] LABS: HGB 6.5 g/dL (12.0-15.5)
[2018-12-23 08:15] LABS: Vitamin B12 976 pg/mL (193-986)
[2018-12-23 08:15] LABS: Iron 10 ug/dL (50-175); Total Iron Binding Capacity 193 ug/dL (250-450); Transferrin Sat 5 % (15-50)
[2018-12-23 08:20] LABS: Folate > 20.0 ng/mL (8.6-20.0)
[2018-12-23 08:24] LABS: Anion Gap 1.8 mmol/L (3-11); BUN 10 mg/dL (7-18); CO2 38.2 mmol/L (21.0-32.0); CREATININE 0.44 mg/dL (0.55-1.02); Calcium 7.8 mg/dL (8.5-10.1); Chloride 103 mmol/L (98-107); Ferritin 12 ng/mL (8-388); Glucose 95 mg/dL (70-100); Magnesium 1.1 mg/dL (1.8-2.4); Potassium 3.6 mmol/L (3.5-5.1); Sodium 143 mmol/L (136-145)
[2018-12-23 08:28] LABS: Anisocytosis 3+; Diff Comment Diff Reviewed; Hypochromasia 3+
[2018-12-23 08:29] LABS: Polychromasia Present
[2018-12-23 08:30] LABS: Poikilocytes 2+
[2018-12-23 08:37] LABS: LDH 134 U/L (81-234)
[2018-12-23] MEDS: Aspirin E.C. 81 MG TABEC PO (08:45)
[2018-12-23] MEDS: metFORMIN 500 MG TAB 1000 MG PO (08:45)
[2018-12-23] MEDS: Folic Acid 1 MG TAB PO (08:45)
[2018-12-23] MEDS: levETIRAcetam 500 MG TAB 1000 MG PO ×2 (08:46→19:43)
[2018-12-23] MEDS: Metoprolol CR 25 MG TABCR 12.5 MG PO (08:47)
[2018-12-23] MEDS: Cyanocobalamin 500 MCG TAB 1000 MCG PO (08:58)
[2018-12-23] MEDS: Insulin Aspart 300 UNITS/3 ML PEN SC ×2 (08:59→12:56)
--- NOTE | 2018-12-23 09:10 | MERGE_ITS ---
*[facility]* * Cardiology* [address] [place] [address] Date of study: 12/23/2018 Transthoracic Echocardiography M-mode, complete 2D, complete spectral Doppler, and color Doppler *STUDY CONCLUSIONS* Summary: 1. Left ventricle: The cavity size was normal. Wall thickness was increased in a pattern of moderate LVH. Systolic function was normal. The estimated ejection fraction was 60-65%. Wall motion was normal; there were no regional wall motion abnormalities. Doppler parameters are consistent with high ventricular filling pressure. 2. Right ventricle: The cavity size was normal. Systolic function was normal. 3. Left atrium: The atrium was mildly dilated. 4. Aortic valve: Trileaflet; mildly thickened, mildly calcified leaflets. Valve mobility was restricted. Transvalvular velocity was increased. There was mild stenosis. Peak velocity (S): 2.4m/sec. VTI ratio of LVOT to aortic valve: 0.6. 5. Tricuspid valve: There was moderate regurgitation. 6. Pulmonary arteries: Pulmonary systolic pressure was increased, >= 55mm Hg. 7. Inferior vena cava: The vessel was patent and dilated. The respirophasic diameter changes were blunted (less than 50%), consistent with elevated central venous pressure. 8. Pericardium, extracardiac: A small pericardial effusion was identified. There was no evidence of hemodynamic compromise. There was a left pleural effusion. *PATIENT PRESENTATION* Height: 165.1cm ((65in) ) S/D Pressure: 113 / 54 Weight: 84.8kg ((186.6lb) ) BSA: 2m^2 Test start time: 09:15 AM. Test stop time: 10:15 AM. PERFORMING Unknown PERFORMING [facility] ORDERING Hossein Magaña REFERRING Hossein Magaña SHORE HAND DREDGE OR BARGE RT Luc (Jeffery)(CT), [facility] CONSULTING SabaLyle Crews *PROCEDURE DATA* Procedure information: The patient was identified by two identifiers. This study was interpreted by [facility]. Pertinent images and digital data are archived for permanent storage and are available for subsequent review. No prior study was available for comparison. Study status: Routine. Transthoracic echocardiography. M-mode, complete 2D, complete spectral Doppler, and color Doppler. A Transthoracic Echocardiogram was performed. Scanning was performed from the parasternal, apical, subcostal, and suprasternal notch acoustic windows. Images were obtained using an [id number] cardiac ultrasound machine. Image quality was adequate. Study completion: The patient tolerated the procedure well. There were no complications. *CARDIAC ANATOMY* Left ventricle: The cavity size was normal. Wall thickness was increased in a pattern of moderate LVH. Systolic function was normal. The estimated ejection fraction was 60-65%. Wall motion was normal; there were no regional wall motion abnormalities. Findings consistent with diastolic dysfunction. Doppler parameters are consistent with high ventricular filling pressure. Aortic valve: Trileaflet; mildly thickened, mildly calcified leaflets. Valve mobility was restricted. Doppler: Transvalvular velocity was increased. There was mild stenosis. There was no significant regurgitation. VTI ratio of LVOT to aortic valve: 0.6. Valve area (VTI): 1.8cm^2. Indexed valve area (VTI): 0.9cm^2/m^2. Peak velocity ratio of LVOT to aortic valve: 0.57. Valve area (Vmax): 1.7cm^2. Indexed valve area (Vmax): 0.8cm^2/m^2. Mean velocity ratio of LVOT to aortic valve: 0.58. Valve area (Vmean): 1.7cm^2. Indexed valve area (Vmean): 0.8cm^2/m^2. Mean gradient (S): 12.6mm Hg. Peak gradient (S): 23mm Hg. Aorta: Aortic root: The aortic root was normal in size. Ascending aorta: The ascending aorta was normal in size. Mitral valve: Structurally normal valve. Mobility was not restricted. Doppler: Transvalvular velocity was within the normal range. There was no evidence for stenosis. There was no significant regurgitation. Valve area by pressure half-time: 4.4cm^2. Indexed valve area by pressure half-time: 2.2cm^2/m^2. Peak gradient (D): 4.5mm Hg. Left atrium: The atrium was mildly dilated. Right ventricle: The cavity size was normal. Systolic function was normal. Pulmonic valve: Poorly visualized. Doppler: Transvalvular velocity was within the normal range. There was no evidence for stenosis. There was mild regurgitation. Tricuspid valve: Structurally normal valve. Doppler: Transvalvular velocity was within the normal range. There was no evidence for stenosis. There was moderate regurgitation. Pulmonary artery: Poorly visualized. Pulmonary systolic pressure was increased, >= 55mm Hg. Right atrium: The atrium was dilated. Pericardium: A small pericardial effusion was identified. There was no evidence of hemodynamic compromise. Systemic veins: Inferior vena cava: Well visualized. The vessel was patent and dilated. The respirophasic diameter changes were blunted (less than 50%), consistent with elevated central venous pressure. Pleura: There was a left pleural effusion. Baseline ECG: Normal sinus rhythm. Measurements Left ventricle Value Reference LV ID, ED, PLAX 4.6 cm 3.5 - 6.0 LV ID, ES, PLAX 2.7 cm 2.1 - 4.0 LV PW thickness, ED, PLAX 1.5 cm LV end-diastolic volume, 1-p A2C 72 ml LV ejection fraction, 1-p A2C 62 % LV end-diastolic volume, 1-p A4C 71 ml LV ejection fraction, 1-p A4C 63 % LV e', lateral 0.076 m/sec LV E/e', lateral 14 LV e', medial 0.04 m/sec LV E/e', medial 26 LV e', average 0.058 m/sec LV E/e', average 18 Ventricular septum Value Reference IVS thickness, ED, PLAX 1.4 cm LVOT Value Reference LVOT ID, A-P 1.9 cm LVOT area 2.9 cm^2 LVOT peak velocity, S 1.36 m/sec LVOT mean velocity, S 0.98 m/sec LVOT VTI, S 28.3 cm LVOT peak gradient, S 7.4 mm Hg LVOT mean gradient, S 4.2 mm Hg Stroke volume (SV), LVOT DP 82 ml Stroke index (SV/bsa), LVOT DP 41 ml/m^2 Aortic valve Value Reference Aortic valve peak velocity, S 2.4 m/sec Aortic valve mean velocity, S 1.7 m/sec Aortic valve VTI, S 47.0 cm Aortic mean gradient, S 12.6 mm Hg Aortic peak gradient, S 23 mm Hg VTI ratio, LVOT/AV 0.6 Aortic valve area, VTI 1.8 cm^2 Velocity ratio, peak, LVOT/AV 0.57 Aortic valve area, peak velocity 1.7 cm^2 Velocity ratio, mean, LVOT/AV 0.58 Aortic valve area, mean velocity 1.7 cm^2 Aortic valve area/bsa, mean velocity 0.8 cm^2/m^2 Aorta Value Reference Aortic root ID, ED 3.1 cm Ascending aorta ID, A-P, S 3.4 cm Left atrium Value Reference LA ID, A-P, ES 3.5 cm LA ID/bsa, A-P 1.7 cm/m^2 <=2.2 LA area, ES, A4C (H) 28.4 cm^2 8.8 - 23.4 LA area, ES, A2C 18 cm^2 LA volume/bsa, ES, 1-p A4C 63 ml/m^2 LA volume, ES, 2-p 69 ml LA volume/bsa, ES, 2-p 34 ml/m^2 LA/aortic root ratio 1.14 Mitral valve Value Reference Mitral E-wave peak velocity 1.06 m/sec Mitral A-wave peak velocity 1.1 m/sec Mitral deceleration time 174 ms 150 - 230 Mitral pressure half-time 50 ms Mitral peak gradient, D 4.5 mm Hg Mitral E/A ratio, peak 0.97 Mitral valve area, PHT, DP 4.4 cm^2 Pulmonary veins Value Reference Pulmonary vein peak velocity, S 0.54 m/sec Pulmonary vein peak velocity, D 0.33 m/sec Pulmonary vein velocity ratio, peak, 1.62 S/D Tricuspid valve Value Reference Tricuspid regurg peak velocity 3.6 m/sec Tricuspid peak RV-RA gradient 51.4 mm Hg Right atrium Value Reference RA area, ES, A4C (H) 19.8 cm^2 8.3 - 19.5 Legend: (L) and (H) ulices values outside specified reference range. I have personally reviewed the images and have reviewed and edited the reported findings. Electronically signed by nAiyah Clifton 12/23/2018 12:50
[2018-12-23] MEDS: Pantoprazole 40 MG VIAL IVP ×2 (09:16→19:42)
[2018-12-23] MEDS: Magnesium Oxide 400 MG TAB 800 MG PO ×2 (09:24→21:17)
[2018-12-23] MEDS: Potassium Chloride 20 MEQ TABCR 40 MEQ PO (09:24)
--- NOTE | 2018-12-23 10:13 | PHARADMIT ---
Addendum entered by Rosa Maria Liu 12/28/18 11:40: Pharmacy Note Subjective Objective VS ok, weight down, INR up 1.7 Assessment still on Lasix infusion-plan to change to oral today Did receive MagIV bolus 2gram x1 yesterday repeat chest xray findings are stable Plan Exercise oximetry today, Likely discharge home Saturday Addendum entered by Rosa Maria Liu 12/27/18 10:01: Pharmacy Note Subjective Objective Wt down 5.7kg overnight, I/O negative, Mag 1.7, K+ 3.9 INR 1.4, BG 100 Assessment Lasix drip continues at 2.5ml/hr Lovenox is weight based...will ask MD to adjust dose based on current weight bridging w/Warfarin, will need to be dc'd when INR therapeutic (?2.0) no insulin adjustments, Metformin dc'd Currently on MagOx 800mg po BID, MD may want an IV bolus today Warfarin dose is 7.5mg QPM Working w/PT Plan follow weight, I/O (not sure of weight goal), INR Will go home with caregivers when ready Addendum entered by Lea Acharya 12/26/18 13:01: Pharmacy Note Subjective CHF, anemia, pulmonary embolism; much improved per morning report Objective INR 1.0, H/H 7.9/27.5, Assessment Diuresing well -- continue furosemide infusion, 10kg away from dry weight Plan Continue to monitor INR and H/H and weight (restarted warfarin with enoxaparin bridge) Addendum entered by Minnie Crowley 12/25/18 09:57: Pharmacy Note Subjective anemia in pt that needs total 3 month(2 more months) of anticoagulation for PE Objective INR 1.0, FS 92, H/H 7.7/26.3, Assessment furosemide infusion continues, iron sucrose IV day 2 of 3. discussion with MD yesterday, apixaban was ordered but due to interaction with phenytoin it was cancelled and warfarin restarted with enoxaparin for bridge Plan monitor INR and enoxaparin for continuation until INR therapeutic Addendum entered by Minnie Crowley 12/24/18 09:53: Pharmacy Note Subjective diastolic CHF and anemia Objective transfused yesterday H/H now 7.9/27.4, FS 110 Assessment warfarin on hold, IRON SUCROSE DAILY X 3, FUROSEMIDE INFUSION CONTINUES, PPI IV Plan with h/o PE pt needs anticoagulation but may need alternate med vs warfarin Original Note: Admission Pharmacy Clinical Review CHF and anemia Code Status Full Code Current Weight 85.1 kg Renally Cleared and Narrow Therapeutic Index Meds Crcl ~84.5 mL/min using adjusted body weight current meds okay; pt is on phenytoin QTc Value / Action Taken QTc 428 BP Control, Fever BP 114/54 Tmax 37.6 Electrolytes reviewed mag 1.1 replacement ordered DVT Prophylaxis pt is on warfarin Opiate Usage / Scheduled Bowel Regimen Ordered no/prn Plt/SCr for Heparin / Enoxaparin plt 246 SCr 0.44 INR for Warfarin no INR checked there is an order for tomorrow H/H stable, WBC/Bands h/h 6.5/23.1 wbc 3.68 Antibiotic appropriateness none Cultures and Sensitivities MRSA pending Surgical ABX d/c within 24 hr n/a DM control / Insulin Dosing BG 95 scheduled and sliding scale aspart Heart Failure (Check EF%) (KI's, B-Block, Diuretics) furosemide, metoprolol IV to PO Switch n/a Home Meds Reviewed -separate admin of bisacodyl and ferrous sulfate from magnesium hydroxide -phenytoin may decrease the serum concentration of simvastatin, acetaminophen, levetiracetam -phenytoin may enhace the anticoagulant effect of warfarin/warfarin may increase the serum concentration of phenytoin Home Meds Not Ordered insulin lispro, metformin Comments iron sucrose 200 mg daily X3 days currently has furosemide drip running
--- NOTE | 2018-12-23 10:25 | PDOC.CMIN ---
Care Management Initial Assess REASON FOR HOSPITALIZATION:: CHF, Anemia PAST MEDICAL HISTORY/PAST SURGICAL HISTORY:: Pericardial effusion without cardiac tamponade, H/O carotid atherosclerosis, Adenomatous polyp, History of meningioma of the brain, Seizure disorder, History of right-sided carotid endarterectomy , BTL, Colonoscopy - MAC (07/15/17), Endarterectomy, right, Extraction of cataract, Essential hypertension, Diabetes type 2, controlled, Diastolic heart failure, Hypercapnic respiratory failure, Adenomatous polyp, Diabetes mellitus, Hypercholesterolemia, Hypertension, Murmur, Osteopenia, Tobacco use PREVIOUS FUNCTIONAL STATUS/SOCIAL/FAMILY SUPPORTS:: Kanchan is currently placed at [facility] for a rehabilitative stay. She was placed from [facility]. She reports normally residing in [place] with senior care friends; Justine and Josue. She is on LTC Medicaid CFC; likely an adult family alf setting; unable to confirm. She reports being mostly independent at baseline with some help with Justine. Kanchan reports [place] provides her transportation as well. Kanchan reports enjoying [employer] books and shares that she has been at [facility] for three weeks and is looking forward to returning home. CURRENT FUNCTIONAL STATUS:: Kanchan is lying in bed when meets with her; she appears alert and oriented, is able to provide accurate history and is pleasant in interaction. She reports she had planned on returning home today, though now the plan will be to return to [facility] prior to returning home. Has patient been provided with information about the portal?: Yes Did the patient sign up for the portal?: No CODE STATUS:: Full Code INSURANCE COVERAGE / FINANCIAL ISSUES:: Medicare. Medicaid CURRENT HOME/COMMUNITY SERVICES/EQUIPMENT:: Current resident at [facility] PRIMARY CARE PHYSICIAN:: Lyle Collins POTENTIAL DISCHARGE NEEDS:: Coordinated return to [facility] and [facility]. CM requested Palliative Care consult order from MD. PATIENT/FAMILY EDUCATION NEEDS:: Review of discharge instructions, discuss Ask Me Three. ANTICIPATED BARRIERS TO DISCHARGE:: None identified. TRANSPORTATION:: Via [facility] W/C Van. PLAN:: Kanchan will discharge back to [facility] when ready per MD. The facility will manage her further service and equipment needs. She will transport via the facility's W/C Van.
[2018-12-23] MEDS: Ferrous Sulfate 325 MG TAB PO (10:43)
[2018-12-23] MEDS: IRON SUCROSE COMPLEX 200 MG in Normal Saline 100 ML 110 MG IVPB (10:43)
--- NOTE | 2018-12-23 11:49 | INITIAL_ITS ---
Care Management Initial Assess REASON FOR HOSPITALIZATION:: CHF, Anemia PAST MEDICAL HISTORY/PAST SURGICAL HISTORY:: Pericardial effusion without cardiac tamponade, H/O carotid atherosclerosis, Adenomatous polyp, History of meningioma of the brain, Seizure disorder, History of right-sided carotid endarterectomy , BTL, Colonoscopy - MAC (07/15/17), Endarterectomy, right, Extraction of cataract, Essential hypertension, Diabetes type 2, controlled, Diastolic heart failure, Hypercapnic respiratory failure, Adenomatous polyp, Diabetes mellitus, Hypercholesterolemia, Hypertension, Murmur, Osteopenia, Tobacco use PREVIOUS FUNCTIONAL STATUS/SOCIAL/FAMILY SUPPORTS:: Kanchan is currently placed at [facility] for a rehabilitative stay. She was placed from [facility]. She reports normally residing in [place] with usp friends; Justine and Josue. She is on LTC Medicaid CFC; likely an adult family long term setting; unable to confirm. She reports being mostly independent at baseline with some help with Justine. Kanchan reports [place] provides her transportation as well. Kanchan reports enjoying [employer] books and shares that she has been at [facility] for three weeks and is looking forward to returning home. CURRENT FUNCTIONAL STATUS:: Kanchan is lying in bed when meets with her; she appears alert and oriented, is able to provide accurate history and is pleasant in interaction. She reports she had planned on returning home today, though now the plan will be to return to [facility] prior to returning home. Has patient been provided with information about the portal?: Yes Did the patient sign up for the portal?: No CODE STATUS:: Full Code INSURANCE COVERAGE / FINANCIAL ISSUES:: Medicare. Medicaid CURRENT HOME/COMMUNITY SERVICES/EQUIPMENT:: Current resident at [facility] PRIMARY CARE PHYSICIAN:: Lyle Collins POTENTIAL DISCHARGE NEEDS:: Coordinated return to [facility] and [facility]. CM requested Palliative Care consult order from MD. PATIENT/FAMILY EDUCATION NEEDS:: Review of discharge instructions, discuss Ask Me Three. ANTICIPATED BARRIERS TO DISCHARGE:: None identified. TRANSPORTATION:: Via [facility] W/C [facility]. PLAN:: Kanchan will discharge back to [facility] when ready per MD. The facility will manage her further service and equipment needs. She will transport via the facility's W/C Van.
[2018-12-23] MEDS: MAGNESIUM SULFATE 4 GM/100 ML BAG IVPB (11:55)
[2018-12-23 14:10] LABS: HCT 24.6 % (36.0-46.0)
[2018-12-23] MEDS: Phytonadione 5 MG TABLET PO (14:10)
[2018-12-23] MEDS: Normal Saline 500 ML IV ×2 (14:48→17:21)
--- NOTE | 2018-12-23 14:53 | NUR.NOTE ---
Nursing Note: iv missed attempt x 2 RFA.
--- NOTE | 2018-12-23 15:59 | W.SURGCON ---
Date of service: 12/23/18 Time of Service: 15:59 Assessment and Plan (1) Anemia: Current visit: Yes Status: Chronic pt has been hemodynamically stable The heart failure is relatively new in onset and is prob due to the b/l unprovokes PE's. Has has not had recent surgery. has been in the hosp for two wks. No prior hx of PE/DVT or hypercoag d/o. (US for DVT was neg). PE could be chronic in nature. She is on coumadin. she did receive Vit K and will receive FFP (! unit) and 2 PRBC. Don't want to agressively reverse the INR/PT b/c of the PE/s. She is on PPI/carafate. no upper GI bleed. stools are dark/alex. pt has been on po Fe replacement. Prob could use some IV Fe replacement when stable. d/w pt doing EGD today and poss intervention for ulcers. Informed consent is obtained for the procedural (explained in simple layman's terms that the pt. and/or family could understand) explaining risks vs benefits and alternatives to the procedure and consequences if we do not do the procedure and need/rational for the procedure. Risks include but are not limited to: bleeding, infection, perforation of esophagus, stomach, colon, small intestines, bronchus or trachea, or PTX. This would necessitate emergency surgery to repair the damage w/ possible ostomy; and other associated complications w/ the required surgery. Also complications of anesthesia including aspiration, TN/CVA/. d/w Dr. Corado 60 mins spent in counseltation >50% of the time spent with the patient today was spent in counseling regarding; medications, lifestyle modifications/ ensocopy and/or coordinating care. (2) Acute on chronic diastolic CHF (congestive heart failure): Current visit: Yes Status: Acute (3) Diastolic heart failure: Current visit: No Status: Chronic (4) Pulmonary embolism: Current visit: Yes Status: Chronic (5) Iron deficiency anemia due to chronic blood loss: Current visit: Yes Status: Acute (6) Hx of jail use of blood thinners: Current visit: Yes Status: Acute History of Present Illness Narrative: pt not a great historian- most of the info is taken from [place] and from the chart. Pt is in heart failure currently- most likely from the PE's. /diastolic failuer. She was recently started on coumadin and INR today is 2.3. Her hgb was 6.5. Her hgb has been low for the last 2-3months. This has been attributed to chronic dx/Iron def. today she started having lg bloody BM. She denies having any abdominal pain currently. She denies having any H/I. She says she is not on any stomach medication. She denies any CP or SOB. Rn's noted that they have had to go up on her O2 throughout the shift. She ate lunch today at noon without any problems. She in on PPI/carafate therapy currently. She is going to receive 2 PRBC and 1 FFP. She did receive vit K. I do not have the CT report on the PE's. Unsure if these are acute or chronic. She has no Hx of hypercoag dx. She has not had PE in the past that she is aware of. She has not had recent surgery. [place] [facility] [place] [facility] [place]. I don't know if she was on lovenox there (I assuming she would be). She is not on nsaids. She is on ASA- 81mg at home. From Hosp Admission Note: Chief Complaint: 19 lb weight gain, edema, anemia Narrative: 78-year-old female recuperating at [facility] after an admission to [facility] from 10/26 through 11/02/2018 for rule out TN and found to have new onset CHF. Initial work-up demonstrated a proBNP of 639, transthoracic echocardiogram showed preserved ejection fraction of 58% with elevated MIP and LVEDP along with a moderate pericardial effusion with no [place] nod and large pleural effusion. Despite diuresis the patient worsened and developed lethargy and hypercapnic respiratory failure requiring BiPAP and transferred to [facility] on 11/02/2018. While hospitalized at [facility] she was initially treated in the intensive care unit from November 02 through November 03, 2018 with BiPAP noninvasive positive pressure ventilation and diuresed with IV Lasix. Repeat TTE showed a small pericardial effusion and ejection fraction of 80% with no wall motion abnormality. Chest x-ray showed moderate left-sided pleural effusion. She underwent a diagnostic and therapeutic thoracentesis on November 07, 2018 in which 800 cc of exudative fluid was removed with atypical cytology suggestive of reactive mesothelial cells. Because of continued hypoxemia and need for oxygen subsequent CT of the chest was performed on 11/15/2018 and demonstrates subsegmental pulmonary emboli in the apical segment of the right upper lobe in the lateral basal segment of the right lower lobe. Patient has signs of right heart congestion and strain including enlargement of the right ventricle relative to the left ventricle and enlargement of the right atrium and reflux of contrast in the IVC and hepatic veins. She also had signs of pulmonary arterial hypertension with dilatation of the main pulmonary artery and small bilateral pleural effusions and pericardial effusion. Also an unexpected finding including peripherally calcified fluid attenuation nodule along the anterior margin of the left hepatic lobe measuring 11 x 6 x 7 mm. Duplex scans of the legs was negative for DVT.. Patient was treated initially for her pulmonary emboli with enoxaparin. She was converted to Coumadin for 3 months of therapy. While at the care home her warfarin dose was adjusted and varied between 7 and 10 mg with the most recent dose being 7.5 mg and her latest INR was 2.2 this morning. Patient was seen and evaluated by Gila Mckinney CNP, on the morning of December 22, 2018 and she noted that the patient has had progressive weight gain over last 2 weeks. Her admission weight was 163 pounds upon admission to [facility]. This reportedly was a 17 pound weight loss due to diuresis while hospitalized at [facility]. Nevertheless her weight went up to 173 pounds on December 04, 2018 and 174 pounds on December 10, 2018 and by December 19, 2018 she was up to 183 pounds and over this past weekend gained another 9 pounds 192 pounds. This is similar to her presentation when she first was admitted to [facility]. She was also noted to be anemic when she was admitted to [facility] with a hemoglobin of 6.6 g which after transfusion noa to 8.6 g and then drifted down to 8.1 g. Reportedly her stool was negative for occult blood. She was transferred to [facility] emergency room because of exacerbation of CHF and concern out of worsening anemia. In the emergency room the patient had routine labs including a CMP that showed normal BUN and creatinine of 10 and 0.49 normal LFTs been elevated proBNP of 2885. Troponin was 0.05. CBC demonstrated worsening anemia with a hemoglobin of 7 g and hematocrit 23.9%. She has a normal white cell count 5300. Chest x-ray was performed and demonstrated diffuse prominent interstitial markings with more pronounced patchy airspace opacities in the bilateral infrahilar regions as well as the left retrocardiac region and subtle groundglass opacities throughout the lungs. She has small bilateral pleural effusions present slightly larger on the left and severe cardiomegaly. These findings are all consistent with CHF exacerbation. Patient is now admitted overnight for blood transfusion and IV diuretics for serial troponin levels to rule out acute coronary syndrome. ECG demonstrates sinus rhythm at a rate of 83 bpm with diffuse anterior T wave abnormalities. Nevertheless the patient denies any symptoms of chest pain or pressure and in fact denies any dyspnea. However the patient is a poor historian and basically denies any pertinent review of systems. Consults Consult date: 12/23/18 Requesting physician: Barron Palafox Review of Systems Review of Systems All systems reviewed & are unremarkable except as noted in HPI and below Constitutional Reports as per HPI, Reports system reviewed and no additional complaints, except as docu, Denies anorexia, Denies chills, Denies difficulty sleeping, Denies fatigue, Denies headache(s), Denies lethargy, Denies malaise, Denies poor appetite, Denies weakness, Reports weight gain and Denies weight loss Eyes Reports as per HPI, Reports system reviewed and no additional complaints, except as docu and Denies change in vision ENT Reports system reviewed and no additional complaints, except as docu, Reports as per HPI, Denies change in voice, Denies dental pain, Reports dysphagia, Denies dizziness, Denies facial pain, Denies headache(s) and Denies odynophagia Cardiovascular Reports as per HPI, Reports system reviewed and no additional complaints, except as docu, Denies chest pain, Denies chest pain with activity, Denies syncope, Denies leg edema and Denies dyspnea Respiratory Reports as per HPI, Reports system reviewed and no additional complaints, except as docu, Denies chest congestion, Denies cough, Denies pain with cough and Denies dyspnea Gastrointestinal Reports as per HPI, Reports system reviewed and no additional complaints, except as docu, Reports abdominal pain, Denies bloating, Denies change in bowel habits, Denies change in stool character, Reports constipation, Denies cramping, Reports dysphagia, Reports early satiety, Reports heartburn, Reports diarrhea, Reports nausea, Denies odynophagia and Reports vomiting Comments: she is on supplements. stools are hem+ this is a change for her. Genitourinary Denies urinary frequency and Denies difficulty voiding Musculoskeletal Reports system reviewed and no additional complaints, except as docu, Reports as per HPI, Denies abnormal gait, Denies arthralgias and Denies muscle weakness Integumentary/Breasts Reports system reviewed and no additional complaints, except as docu, Reports as per HPI, Denies changing lesions, Denies new lesions and Denies jaundice Neurologic Reports system reviewed and no additional complaints, except as docu, Reports as per HPI, Denies abnormal speech, Denies abnormal gait, Denies dizziness, Denies syncope, Denies headache(s), Denies memory loss and Denies weakness Psychiatric Reports system reviewed and no additional complaints, except as docu, Reports as per HPI, Denies change in appetite and Denies memory loss Endocrine Denies fatigue, Denies polydipsia and Denies polyuria Hematologic/Lymphatic Reports system reviewed and no additional complaints, except as docu, Denies easy bleeding and Denies easy bruising Allergic/Immunologic Denies system reviewed and no additional complaints, except as docu, Reports as per HPI and Denies urticaria PFSH Medical History 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 (Acute) Iron deficiency anemia due to chronic blood loss (Acute) Pulmonary embolism (Chronic) Anemia (Chronic) Pericardial effusion without cardiac tamponade (Chronic) H/O carotid atherosclerosis (Chronic) Adenomatous polyp (Chronic) History of meningioma of the brain (Chronic) Seizure disorder (Chronic) Essential hypertension (Chronic) Diabetes type 2, controlled (Chronic) Diastolic heart failure (Chronic ~10/2018) Hypercapnic respiratory failure (Resolved ~10/2018) Adenomatous polyp Diabetes mellitus Hypercholesterolemia Hypertension Murmur Osteopenia Tobacco use Surgical History History of right-sided carotid endarterectomy (Chronic) BTL Colonoscopy - MAC (07/15/17) Endarterectomy, right Extraction of cataract Family History Mother Essential hypertension ASCVD (arteriosclerotic cardiovascular disease) Father Essential hypertension Social History Smoking/Tobacco Use Status: Former Tobacco Use Drug use: Never Exam Const General: cooperative, healthy appearing, comfortable, no acute distress, well developed and well groomed Nutritional Appearance: average body habitus and well nourished Orientation: alert, awake and oriented x3 HENMT Head: normal to inspection, normocephalic and atraumatic Ears: hearing grossly normal bilaterally and external ears normal General nose exam: external nose normal Face and sinus: normal facial exam and sinuses nontender Mouth: oral mucosae normal, lip normal, tongue normal and moist mucous membranes Teeth and gingiva: dentition normal Eyes General: appearance normal, both eyes and all related structures Conjunctivae: conjunctivae normal Sclera: sclerae normal Pupils: PERRL Other: no redness/ drainage/jaundice Neck Neck: normal visual inspection and full ROM Chest Chest: normal inspection of the chest Resp Effort & Inspection: normal respiratory effort, able to speak in complete sentences, no cough, no nasal flaring, not tachypneic and no use of accessory muscles Auscultation: clear to auscultation bilaterally, rales (at bses ), no rhonchi and no wheezes Cardio Jugular venous pressure: no JVD Rate: regular rate Rhythm: regular rhythm Other: BP has been stable GI Inspection: normal to inspection, no edema and non-distended Palpation: soft, no masses, nontender and No ascites Auscultation: normal bowel sounds Skin General skin exam: no rashes or lesions noted Trauma: no lacerations or abrasions Neuro General: alert, oriented x3, oriented, gait normal, moves all extremities, no focal motor deficits and CN's II-XI intact bilaterally Cognition: normal cognition Speech: speech normal Gait: normal gait Motor: muscle tone normal throughout Extrem General: normal to inspection, full ROM and no clubbing, cyanosis or edema Psych Appearance: grossly normal and well kempt Mental Status: mental status grossly normal Speech and Movement: speech and movement normal Affect: normal affect Results Last Vital Signs Temp 37.8 C H 12/23/18 12:00 Pulse 76 12/23/18 13:16 Resp 28 H 12/23/18 13:16 BP 103/44 L 12/23/18 13:16 Pulse Ox 87 L 12/23/18 13:48 Labs : 12/23/18 13:55 12/23/18 06:25 Laboratory Results - last 24 hr 12/22/18 12/22/18 12/22/18 17:15 17:15 17:15 WBC 5.33 RBC 2.62 L Hgb 7.0 L Hct 23.9 L MCV 91.2 MCH 26.7 L MCHC 29.3 L RDW 20.2 H Plt Count 251 MPV 8.4 Immature Gran % 0.2 Neutrophils % 65.8 Lymphocytes % 19.3 Monocytes % 12.4 Eosinophils % 1.9 Basophils % 0.4 Absolute Neutrophils 3.51 Absolute Lymphocytes 1.03 L Absolute Monocytes 0.66 Absolute Eosinophils 0.10 Absolute Basophils 0.02 Differential Comment Rbc morph reviewed RBC Morphology See below Polychromasia Present Hypochromasia 2+ Poikilocytosis Anisocytosis 2+ Retic Count D-Dimer Sodium 140 Potassium 3.6 Chloride 100 Carbon Dioxide 36.3 H Anion Gap 3.7 BUN 10 Creatinine 0.49 L Estimated GFR/1.73 m2 >= 60.00 Glucose 119 H Calcium 7.9 L Magnesium Iron TIBC Transferrin % Sat Ferritin Total Bilirubin < 0.1 L AST 12 L ALT 14 Alkaline Phosphatase 84 Lactate Dehydrogenase Troponin I 0.05 NT-Pro-B Natriuret Pep 2885 H Total Protein 5.8 L Albumin 2.4 L Vitamin B12 Folate TSH 3.30 Patient ABO/Rh Antibody Screen Antibody Identification Antigen Identification Crossmatch 12/22/18 12/22/18 12/22/18 17:15 20:11 22:05 WBC RBC Hgb Hct MCV MCH MCHC RDW Plt Count MPV Immature Gran % Neutrophils % Lymphocytes % Monocytes % Eosinophils % Basophils % Absolute Neutrophils Absolute Lymphocytes Absolute Monocytes Absolute Eosinophils Absolute Basophils Differential Comment RBC Morphology Polychromasia Hypochromasia Poikilocytosis Anisocytosis Retic Count D-Dimer 560 H Sodium Potassium Chloride Carbon Dioxide Anion Gap BUN Creatinine Estimated GFR/1.73 m2 Glucose Calcium Magnesium Iron TIBC Transferrin % Sat Ferritin Total Bilirubin AST ALT Alkaline Phosphatase Lactate Dehydrogenase Troponin I 0.04 NT-Pro-B Natriuret Pep Total Protein Albumin Vitamin B12 Folate TSH Patient ABO/Rh A Positive Antibody Screen Positive Antibody Identification Anti-C Antigen Identification Not Applicable Crossmatch See Detail 12/23/18 12/23/18 12/23/18 01:09 06:25 06:25 WBC 3.68 L D RBC 2.52 L Hgb 6.5 L* Hct 23.1 L MCV 91.7 MCH 25.8 L MCHC 28.1 L RDW 20.0 H Plt Count 246 MPV 8.6 Immature Gran % 0.3 Neutrophils % 57.3 Lymphocytes % 25.0 Monocytes % 14.4 Eosinophils % 2.7 Basophils % 0.3 Absolute Neutrophils 2.11 Absolute Lymphocytes 0.92 L Absolute Monocytes 0.53 Absolute Eosinophils 0.10 Absolute Basophils 0.01 Differential Comment Diff reviewed RBC Morphology See below Polychromasia Present Hypochromasia 3+ Poikilocytosis 2+ Anisocytosis 3+ Retic Count 2.5 H D-Dimer Sodium 143 Potassium 3.6 Chloride 103 Carbon Dioxide 38.2 H Anion Gap 1.8 L BUN 10 Creatinine 0.44 L Estimated GFR/1.73 m2 >= 60.00 Glucose 95 Calcium 7.8 L Magnesium 1.1 L Iron TIBC Transferrin % Sat Ferritin 12 Total Bilirubin AST ALT Alkaline Phosphatase Lactate Dehydrogenase 134 Troponin I 0.04 NT-Pro-B Natriuret Pep Total Protein Albumin Vitamin B12 Folate TSH Patient ABO/Rh Antibody Screen Antibody Identification Antigen Identification Crossmatch 12/23/18 12/23/18 12/23/18 06:25 07:10 13:55 WBC RBC Hgb 7.0 L Hct 24.6 L MCV MCH MCHC RDW Plt Count MPV Immature Gran % Neutrophils % Lymphocytes % Monocytes % Eosinophils % Basophils % Absolute Neutrophils Absolute Lymphocytes Absolute Monocytes Absolute Eosinophils Absolute Basophils Differential Comment RBC Morphology Polychromasia Hypochromasia Poikilocytosis Anisocytosis Retic Count D-Dimer Sodium Potassium Chloride Carbon Dioxide Anion Gap BUN Creatinine Estimated GFR/1.73 m2 Glucose Calcium Magnesium Iron 10 L TIBC 193 L Transferrin % Sat 5 L Ferritin Total Bilirubin AST ALT Alkaline Phosphatase Lactate Dehydrogenase Troponin I NT-Pro-B Natriuret Pep Total Protein Albumin Vitamin B12 976 Folate > 20.0 H TSH Patient ABO/Rh Antibody Screen Antibody Identification Antigen Identification Crossmatch
[2018-12-23] MEDS: Lactated Ringers 1,000 ML 30 ML IV (17:16)
--- NOTE | 2018-12-23 17:39 | W.PM.OP ---
Date of service: 12/23/18 Time of Service: 17:39 Operative Note DATE OF PROCEDURE: 12/23/18 PRE-OP DIAGNOSIS: upper GI bleed POST-OP DIAGNOSIS: other (esohagitis) PROCEDURE: no mass no fresh or old blood no gastritis/masses doudenum nl ANESTHESIA: GETA ESTIMATED BLOOD LOSS: 0 PATHOLOGY: other (pt had not received FFP yet so no Bx were done ) Patient was transported to: PACU Patient's condition: stable Procedure Description: After informed consent was obtained the patient was take to the procedure room and placed in a supine position. Monitors were applied and a time out was done. The patients name, date of , procedure type, allergies to medications and metal in their body was reviewed. A bite block was placed and the patient was sedated. Once sedated and comfortable the gastroscope was advanced through the oropharynx which was grossly normal into the esophagus. The proximal and mid-esophagus were nl. In the distal esophagus there was some esophagitis noted. The scope was advanced into the stomach and through the pylorus into the 3rd portion of the duodenum. The duodenum was noted to be normal. Biopsies were done not done b/c she has not received FFP/INR was 2.3 . The scope was retracted back into the stomach- there were no ulcers or masses. no signs of active or old blood.. There were no gastritis. The scope was retroflexed. The cardia and fundus were noted to be normal. There no a hiatal hernia noted. The scope was removed and the patient was woken up and taken back to ICU in stable condition. Follow up:
--- NOTE | 2018-12-23 17:49 | NUR.NOTE ---
Nursing Note: 1708 To OR via stretcher with OR staff Tony Nash CRNA and OR nurse. Transfusion of PRBC infusion @ 100ml/hr.running. Lasix drip @ 2.5 mg/hr running. Fresh Frozen plasma unit was retrieved from Lab and handed to Transporting OR staff per MD request.
--- NOTE | 2018-12-23 18:51 | PGE_ITS ---
Date of Service Date of service: 12/23/18 Time of Service: 18:48 Assessment and Plan (1) Anemia: Current visit: Yes Status: Chronic Evidence of low TIBC indicating potential anemia of chronic disease, but with low iron and low Ferritin. Initially considered a potential malabsorption condition such as Celiac, but Mrs. Garcia experienced a Heme + Stool shortly after admission. Discontinue Coumadin, administer Vitamin K and FFP, and consult Surgery for potential EGD in patient on anticoagulation. She is also Ab positive - Discussed case with Pathologist - patient will receive 1 Unit of PRBCs with compatible blood, with 2 additional units on standby. Trend H/H, change to IV PPI BID, and initiate on Carafate therapy while awaiting above results. She is currently Hemodynamically stable. (2) Pulmonary embolism: Current visit: Yes Status: Chronic Will need to hold off on anticoagulation given active GI Bleed, but will need to monitor symptoms closely as PE was fairly recent. (3) Acute on chronic diastolic CHF (congestive heart failure): Current visit: Yes Status: Acute Continue lasix gtt, and monitor renal function, I/O's, and daily weights. Continue BB therapy. ECHO obtained and with normal LVEF, evidence of high ventricular filling pressures, and normal RV function. The patient did have mild , mod TR, and PHT N with PAP >55 mmHg. (4) Seizure disorder: Current visit: No Status: Chronic Currently on Keppra and Dilantin. (5) Diabetes type 2, controlled: Current visit: No Status: Chronic Continue to hold Metformin, and monitor on sliding scale. (6) DVT prophylaxis: Current visit: Yes Status: Acute SCD's only given GI Bleed. Subjective Interval history since last seen: 78-year-old woman with a recent history of b/l PE's on anticoagulation with Coumadin, admitted from [facility] Emergency Department on 12/22 with a diagnosis of CHF and worsening anemia. Mrs. Garcia has a prior history of Carotid Artery Disease, s/p Right sided CEA, hx intracranial Meningioma with subsequent Seizure Disorder on AED, HTN, and Dyslipidemia. She also has known PE's on chronic AC, as well as pleural and pericardial effusion. She was admitted to [facility] between 10/26 - 11/02 with a new onset CHF, with work-up showing a normal LVEF. Despite diuresis her conditioned worsened and she developed Hypercapneic Respiratory Failure requiring BiPAP therapy and ultimately a transfer to [facility]. She underwent a diagnostic and therapeutic thoracentesis on 11/07, with 800 cc's of Exudative fluid removed with Cytology suggestive of reactive Mesothelial Cells. As the patient remained hypoxic, a CT of the chest was performed on 11/15 showing subsegmental Pulmonary Embolic in the RUL and RLL, with evidence of Right Heart Congestion and RV Strain. Her LE Dopplers were negative for DVTs. She was bridged with Lovenox and transitioned to Coumadin, with plans for a 3 month cour se of anticoagulation. Of note, the patient was also anemic, with a Hgb of 6.6 which required transfusion. Her Hemoglobin was 8.1 at time of discharge, and her stool was reportedly Hemoccult negative.. She was discharged to [facility] following the conclusion of her hospital course. The patient has had progressive weight gain over the course of the last 2 weeks, with an increase from an admission weight of 74 Kg to 87 Kg at time of her admission to [facility]. At time of presentation she was noted to have an elevated BNP, Hgb of 7, and findings of CHF by CXR (mild) with small bilateral effusions. She was admitted and maintained on a lasix drip, and reported improvement this morning. She ruled out with serial cardiac biomarkers. However, her Hgb returned lower at 6.5, and when attempting to type and screen evidence of antibodies were detected. Iron studies showed evidence of iron deficiency, and soon after admission she was noted to be Heme + by Fecal Occult Blood Testing. The patient herself has no complaints this morning and feels improved. Exam Narrative Exam Narrative: General: Patient appears comfortable, AAOX3 at time of exam, NAD Neck: Supple CV: Regular, nontachycardic, S1S2, No rubs, murmurs, or gallops. Pulmonary: bibasilar crackles, otherwise without rhonchi or wheezing Abdomen: + Bowel Sounds, soft, nontender, nondistended Vascular: B/l lower extremity edema Psych: Normal mood and affect. Objective Objective Clinical Data: Abnormal lab results 12/22/18 12/23/18 12/23/18 Range/Units 20:11 06:25 06:25 WBC 3.68 L D (4.4-10.8) k/cumm RBC 2.52 L (4.00-5.20) m/cumm Hgb 6.5 L* (12.0-15.5) g/dL Hct 23.1 L (36.0-46.0) % MCH 25.8 L (27.0-33.0) pg MCHC 28.1 L (32.0-36.0) g/dL RDW 20.0 H (11.7-14.6) % Absolute Lymphocytes 0.92 L (1.2-3.4) k/cumm Retic Count 2.5 H (0.5-2.4) % Carbon Dioxide 38.2 H (21.0-32.0) mmol/L Anion Gap 1.8 L (3-11) mmol/L Creatinine 0.44 L (0.55-1.02) mg/dL Calcium 7.8 L (8.5-10.1) mg/dL Magnesium 1.1 L (1.8-2.4) mg/dL Iron (50-175) ug/dL TIBC (250-450) ug/dL Transferrin % Sat (15-50) % Folate (8.6-20.0) ng/mL Crossmatch See Detail 12/23/18 12/23/18 12/23/18 Range/Units 06:25 07:10 13:55 WBC (4.4-10.8) k/cumm RBC (4.00-5.20) m/cumm Hgb 7.0 L (12.0-15.5) g/dL Hct 24.6 L (36.0-46.0) % MCH (27.0-33.0) pg MCHC (32.0-36.0) g/dL RDW (11.7-14.6) % Absolute Lymphocytes (1.2-3.4) k/cumm Retic Count (0.5-2.4) % Carbon Dioxide (21.0-32.0) mmol/L Anion Gap (3-11) mmol/L Creatinine (0.55-1.02) mg/dL Calcium (8.5-10.1) mg/dL Magnesium (1.8-2.4) mg/dL Iron 10 L (50-175) ug/dL TIBC 193 L (250-450) ug/dL Transferrin % Sat 5 L (15-50) % Folate > 20.0 H (8.6-20.0) ng/mL Crossmatch Vital Signs Temperature 37.1 C 12/23/18 17:55 Temperature Source Temporal Artery Scan 12/23/18 16:15 Pulse 80 12/23/18 17:55 Pulse Rhythm Regular 12/22/18 23:28 Pulse 79 12/23/18 16:50 Respiratory Rate 24 12/23/18 17:55 Respiratory Effort 12/23/18 16:28 Respiratory Depth Normal 12/23/18 16:28 Respiratory Pattern Normal 12/23/18 16:28 Blood Pressure 137/52 L 12/23/18 17:55 Blood Pressure Mean 62 12/23/18 16:39 Blood Pressure Position Supine 12/22/18 16:21 Pulse Oximetry 95 12/23/18 17:55 Respiratory End-tidal CO2 31 12/23/18 17:55 Oxygen Delivery Method Nasal Cannula 12/23/18 17:55 Oxygen Flow Rate 3 12/23/18 17:55 Pain Level 0 12/23/18 17:55 Comment 12/23/18 12:00 Intake & Output 12/22/18 12/23/18 12/23/18 23:59 11:59 23:59 Intake Total 510.583 / 1163.116 652.533 / 1163.116 Output Total 3710 / 4215 505 / 4215 Balance -3199.417 / -3051.884 147.533 / -3051.884 Weight 86.3 kg 85.1 kg Intake: IV 150.583 / 323.116 172.533 / 323.116 Oral 360 / 840 480 / 840 Output: Urine 3710 / 4165 455 / 4165 Stool 50 / 50 Other: Urine Color Pale Pale Yellow Yellow Urine Appearance Clear Clear Comment Urinometer placed Stool Occult Blood Positive Stool Size Small Stool Characteristics Liquid Black Emesis Description None Laboratory Results WBC 3.68 k/cumm (4.4-10.8) L D 12/23/18 06:25 RBC 2.52 m/cumm (4.00-5.20) L 12/23/18 06:25 Hgb 7.0 g/dL (12.0-15.5) L 12/23/18 13:55 Hct 24.6 % (36.0-46.0) L 12/23/18 13:55 MCV 91.7 fL (80-95) 12/23/18 06:25 MCH 25.8 pg (27.0-33.0) L 12/23/18 06:25 MCHC 28.1 g/dL (32.0-36.0) L 12/23/18 06:25 RDW 20.0 % (11.7-14.6) H 12/23/18 06:25 Plt Count 246 x1000/uL (130-400) 12/23/18 06:25 MPV 8.6 fL (8.0-11.0) 12/23/18 06:25 Immature Gran % 0.3 12/23/18 06:25 Neutrophils % 57.3 12/23/18 06:25 Lymphocytes % 25.0 12/23/18 06:25 Monocytes % 14.4 12/23/18 06:25 Eosinophils % 2.7 12/23/18 06:25 Basophils % 0.3 12/23/18 06:25 Absolute Neutrophils 2.11 k/cumm (1.2-6.7) 12/23/18 06:25 Absolute Lymphocytes 0.92 k/cumm (1.2-3.4) L 12/23/18 06:25 Absolute Monocytes 0.53 k/cumm (0.11-0.7) 12/23/18 06:25 Absolute Eosinophils 0.10 k/cumm (0.0-0.7) 12/23/18 06:25 Absolute Basophils 0.01 k/cumm (0.0-0.2) 12/23/18 06:25 Differential Comment Diff reviewed 12/23/18 06:25 RBC Morphology See below 12/23/18 06:25 Polychromasia Present 12/23/18 06:25 Hypochromasia 3+ 12/23/18 06:25 Poikilocytosis 2+ 12/23/18 06:25 Anisocytosis 3+ 12/23/18 06:25 Retic Count 2.5 % (0.5-2.4) H 12/23/18 06:25 D-Dimer 560 ng/mlFEU (<500) H 12/22/18 17:15 Sodium 143 mmol/L (136-145) 12/23/18 06:25 Potassium 3.6 mmol/L (3.5-5.1) 12/23/18 06:25 Chloride 103 mmol/L (98-107) 12/23/18 06:25 Carbon Dioxide 38.2 mmol/L (21.0-32.0) H 12/23/18 06:25 Anion Gap 1.8 mmol/L (3-11) L 12/23/18 06:25 BUN 10 mg/dL (7-18) 12/23/18 06:25 Creatinine 0.44 mg/dL (0.55-1.02) L 12/23/18 06:25 Estimated GFR/1.73 m2 >= 60.00 (mL/min/1.73m2) 12/23/18 06:25 Glucose 95 mg/dL (70-100) 12/23/18 06:25 Calcium 7.8 mg/dL (8.5-10.1) L 12/23/18 06:25 Magnesium 1.1 mg/dL (1.8-2.4) L 12/23/18 06:25 Iron 10 ug/dL (50-175) L 12/23/18 07:10 TIBC 193 ug/dL (250-450) L 12/23/18 07:10 Transferrin % Sat 5 % (15-50) L 12/23/18 07:10 Ferritin 12 ng/mL (8-388) 12/23/18 06:25 Total Bilirubin < 0.1 mg/dL (0.2-1.0) L 12/22/18 17:15 AST 12 U/L (15-37) L 12/22/18 17:15 ALT 14 U/L (12-78) 12/22/18 17:15 Alkaline Phosphatase 84 U/L (46-116) 12/22/18 17:15 Lactate Dehydrogenase 134 U/L (81-234) 12/23/18 06:25 Troponin I 0.04 ng/mL (0.00-0.06) 12/23/18 01:09 NT-Pro-B Natriuret Pep 2885 pg/mL (-299) H 12/22/18 17:15 Total Protein 5.8 g/dL (6.4-8.2) L 12/22/18 17:15 Albumin 2.4 g/dL (3.4-5.0) L 12/22/18 17:15 Vitamin B12 976 pg/mL (193-986) 12/23/18 06:25 Folate > 20.0 ng/mL (8.6-20.0) H 12/23/18 06:25 TSH 3.30 uIU/mL (0.358-3.74) 12/22/18 17:15 Patient ABO/Rh A Positive 12/22/18 20:11 Antibody Screen Positive 12/22/18 20:11 Antibody Identification Anti-C 12/22/18 20:11 Antigen Identification Not Applicable 12/22/18 20:11 Crossmatch See Detail 12/22/18 20:11
[2018-12-23 20:12] LABS: INR 1.4 (0.9-1.1); PTT Activated 25.4 sec (21.0-31.4); Prothrombin Time 14.3 sec (9.3-11.0)
[2018-12-23] MEDS: Sucralfate 1 GM TAB PO (21:17)
[2018-12-23 21:18] LABS: HCT 25.9 % (36.0-46.0)
[2018-12-23 21:21] LABS: HGB 7.8 g/dL (12.0-15.5)
[2018-12-24] VITALS (53 sets, daily range): BP systolic 103–132; BP diastolic 36–54; PULSE 70–92; RESP 12–32; TEMP 36.9–37.6; O2SAT 87–100
[2018-12-24 07:27] LABS: Abs Immature Grans 0.01 k/cumm (0.0-0.09); Absolute Basophil Count 0.01 k/cumm (0.0-0.2); Absolute Eosinophil Count 0.09 k/cumm (0.0-0.7); Absolute Lymphocyte Count 0.64 k/cumm (1.2-3.4); Absolute Monocyte Count 0.56 k/cumm (0.11-0.7); Basophils % 0.2; Eosinophils % 2.1; HCT 27.4 % (36.0-46.0); HGB 7.9 g/dL (12.0-15.5); Immature Grans % 0.2; Lymphocytes % 15.2; Mean Corp. HGB Concentration 28.8 g/dL (32.0-36.0); Mean Corpuscular Hemoglobin 25.8 pg (27.0-33.0); Mean Corpuscular Volume 89.5 fL (80-95); Mean Platelet Volume 8.8 fL (8.0-11.0); Monocytes % 13.3; Platelet Count 226 x1000/uL (130-400); RBC 3.06 m/cumm (4.00-5.20); RBC Distribution Width 19.7 % (11.7-14.6); White Blood Cell Count 4.21 k/cumm (4.4-10.8)
[2018-12-24 07:34] LABS: Anion Gap -0.2 mmol/L (3-11); BUN 10 mg/dL (7-18); CO2 39.2 mmol/L (21.0-32.0); CREATININE 0.38 mg/dL (0.55-1.02); Calcium 8.4 mg/dL (8.5-10.1); Chloride 101 mmol/L (98-107); Glucose 106 mg/dL (70-100); Potassium 3.7 mmol/L (3.5-5.1); Sodium 140 mmol/L (136-145)
[2018-12-24 07:37] LABS: INR 1.2 (0.9-1.1); Prothrombin Time 11.8 sec (9.3-11.0)
[2018-12-24 07:42] LABS: Magnesium 1.9 mg/dL (1.8-2.4); Troponin I 0.04 ng/mL (0.00-0.06)
--- NOTE | 2018-12-24 08:03 | CMPROGNOTE_ITS ---
Care Management Progress Note S/O: Kanchan was lying in bed when CM met with her. The only concern she identified was wanting her word search and pens from the rehab. CM brought Kanchan a new book, highlighter and pen. CM also notified Ivory at the Rehab of Kanchan's request. Kanchan continues to be monitored closely, due to heme positive stools she was brought to the OR for EGD this morning; awaiting updates. Plan remains for her to return to [facility] when ready per MD. No change to overall plan. A: 78 year old female admitted to [facility] 12/22/18 with CHF and Anemia P: Kanchan will discharge back to [facility] when ready per MD, anticipate she will have new Eliquis prescription; CM notified [facility] and faxed updated clinicals. Anticipate Saturday will be the earliest Kanchan will be discharge ready per MD> The facility will manage her further service and equipment needs. She will transport via the facility's W/C Van.
[2018-12-24] MEDS: Insulin Aspart 300 UNITS/3 ML PEN SC ×3 (08:05→12:47)
[2018-12-24] MEDS: metFORMIN 500 MG TAB 1000 MG PO ×2 (09:24→17:54)
[2018-12-24] MEDS: Sucralfate 1 GM TAB PO (09:25)
[2018-12-24] MEDS: Ferrous Sulfate 325 MG TAB PO (09:25)
[2018-12-24] MEDS: Cyanocobalamin 500 MCG TAB 1000 MCG PO (09:25)
[2018-12-24] MEDS: levETIRAcetam 500 MG TAB 1000 MG PO ×2 (09:26→19:54)
[2018-12-24] MEDS: Folic Acid 1 MG TAB PO (09:26)
[2018-12-24] MEDS: Metoprolol CR 25 MG TABCR 12.5 MG PO (09:26)
[2018-12-24] MEDS: Pantoprazole 40 MG VIAL IVP ×2 (09:26→19:54)
[2018-12-24] MEDS: Potassium Chloride 10 MEQ CAPCR 20 MEQ PO ×2 (09:27→19:55)
[2018-12-24] MEDS: Normal Saline Flush 10 ML SYR IVP ×2 (09:28→19:54)
[2018-12-24 10:12] LABS: Haptoglobin 124 mg/dL (32-197)
--- NOTE | 2018-12-24 10:31 | W.PM.PROGNOT ---
Date of Service Date of service: 12/24/18 Time of Service: 10:32 Assessment and Plan (1) Anemia: Current visit: Yes Status: Chronic Evidence of low TIBC indicating potential anemia of chronic disease, but with low iron and low Ferritin. Initially considered a potential malabsorption condition such as Celiac, but Mrs. Garcia experienced a Heme + Stool shortly after admission. Discontinued Coumadin - patient received Vitamin K and FFP, and underwent subsequent EGD showing evidence of Esophagitis only without active bleeding. Will continue BID PPI, and in the absence of Gastric or Duodenal Ulcers discontinue Sucralfate, and initiate on H2 Mickey. Current Hgb improved following 1 Unit of PRBCs with compatible blood product, with 2 additional units on standby. Will plan on repeat H/H later today to ensure stability. Will resume anticoagulation with Apixaban - see below. (2) Pulmonary embolism: Current visit: Yes Status: Chronic Evidence of recent PEs, with fairly significant clot burden, and RV Strain by imaging at [facility]. Also with Exudative pleural effusion and pericardial effusion that may have been related - was initiated on Coumadin, now held and reversed in setting of acute GIB. Bleed did not appear to be brisk, and is likely from an Upper GI Source. EGD only showing Esophagitis, and patient is currently hemodynamically stable. Following discussion with surgery decision was made to reinitiate anticoagulation, this time with Apixaban which should have a lower risk for GI bleed, with very careful monitoring of patient's H/H, vitals, and overall clinical picture. Discussed with Hematology at [facility] who concurred with decision to change to Apixaban, and did not find any contraindication for use of this medicine. (3) Acute on chronic diastolic CHF (congestive heart failure): Current visit: Yes Status: Acute Continue lasix gtt, and monitor renal function, I/O's, and daily weights. Continue BB therapy. Currently with increase in weight due to need for transfusion and holding of lasix drip. ECHO obtained 12/23 - shows normal LVEF, evidence of high ventricular filling pressures, and normal RV function. The patient did have mild , mod TR, and PHTN with PAP >55 mmHg. (4) Seizure disorder: Current visit: No Status: Chronic Currently on Keppra and Dilantin. (5) Diabetes type 2, controlled: Current visit: No Status: Chronic Continue to hold Metformin, and monitor on sliding scale. (6) DVT prophylaxis: Current visit: Yes Status: Acute SCD's currently, with plans on initiating Apixaban later this evening pending result of repeat H/H. Subjective Interval history since last seen: 78-year-old woman with a recent history of b/l PE's on anticoagulation with Coumadin, admitted from [facility] Emergency Department on 12/22 with a diagnosis of CHF and worsening anemia. Mrs. Garcia has a prior history of Carotid Artery Disease, s/p Right sided CEA, hx intracranial Meningioma with subsequent Seizure Disorder on AED, HTN, and Dyslipidemia. She also has known PE's on chronic AC, diagnosed last month, as well as pleural and pericardial effusion. She was admitted to [facility] between 10/26 and 11/02/2018 with a new onset CHF, with work-up showing a normal LVEF. Despite diuresis her conditioned worsened and she developed Hypercapneic Respiratory Failure requiring BiPAP therapy and ultimately a transfer to [facility]. She underwent a diagnostic and therapeutic thoracentesis on 11/07, with 800 cc's of Exudative fluid removed with Cytology suggestive of reactive Mesothelial Cells. As the patient remained hypoxic, a CT of the chest was performed on 11/15 showing subsegmental Pulmonary Emboli in the RUL and RLL, with evidence of Right Heart Congestion and RV Strain. Her LE Dopplers were negative for DVTs. She was bridged with Lovenox and transitioned to Coumadin, with plans for a 3 month course of anticoagulation. Of note, the patient was also anemic, with a Hgb of 6.6 which required transfusion. Her Hemoglobin was 8.1 at time of discharge, and her stool was reportedly Hemoccult negative. She was discharged to [facility] following the conclusion of her hospital course. The patient had progressive weight gain over the course of the last 2 weeks while at the rehab, with an increase from an admission weight of 74 Kg to 87 Kg at time of her admission to [facility]. At time of presentation she was noted to have an elevated BNP, Hgb of 7, and findings of CHF by CXR (mild) with small bilateral effusions. She was admitted and maintained on a lasix drip, and reported improvement in her breathing. She ruled out with serial cardiac biomarkers. However, her Hgb returned lower at 6.5, and when attempting to type and screen her blood evidence of antibodies were detected. Iron studies showed evidence of iron deficiency, and soon after admission she was noted to be Heme + by Fecal Occult Blood Testing. She underwent an EGD which showed evidence of some distal Esophagitis, but no active bleeding. She also received 1 Unit of PRBCs, The patient herself has no complaints this morning and feels improved, but with worsening exam and oxygen requirement. No overnight events reported. She remains afebrile. Exam Narrative Exam Narrative: General: Patient appears comfortable, AAOX3 at time of exam, NAD Neck: Supple CV: Regular, nontachycardic, S1S2, No rubs, murmurs, or gallops. Pulmonary: bibasilar crackles appear worsened, L > R, otherwise without rhonchi or wheezing Abdomen: + Bowel Sounds, soft, nontender, nondistended Vascular: B/l lower extremity edema Psych: Normal mood and affect. Objective Objective Clinical Data: Abnormal lab results 12/22/18 12/23/18 12/23/18 Range/Units 20:11 13:55 19:37 WBC (4.4-10.8) k/cumm RBC (4.00-5.20) m/cumm Hgb 7.0 L (12.0-15.5) g/dL Hct 24.6 L (36.0-46.0) % MCH (27.0-33.0) pg MCHC (32.0-36.0) g/dL RDW (11.7-14.6) % Absolute Lymphocytes (1.2-3.4) k/cumm PT 14.3 H (9.3-11.0) sec INR 1.4 H (0.9-1.1) Carbon Dioxide (21.0-32.0) mmol/L Anion Gap (3-11) mmol/L Creatinine (0.55-1.02) mg/dL Glucose (70-100) mg/dL Calcium (8.5-10.1) mg/dL Crossmatch See Detail 12/23/18 12/24/18 12/24/18 Range/Units 21:03 06:41 06:41 WBC (4.4-10.8) k/cumm RBC (4.00-5.20) m/cumm Hgb 7.8 L (12.0-15.5) g/dL Hct 25.9 L (36.0-46.0) % MCH (27.0-33.0) pg MCHC (32.0-36.0) g/dL RDW (11.7-14.6) % Absolute Lymphocytes (1.2-3.4) k/cumm PT 11.8 H (9.3-11.0) sec INR 1.2 H (0.9-1.1) Carbon Dioxide 39.2 H (21.0-32.0) mmol/L Anion Gap -0.2 L (3-11) mmol/L Creatinine 0.38 L (0.55-1.02) mg/dL Glucose 106 H (70-100) mg/dL Calcium 8.4 L (8.5-10.1) mg/dL Crossmatch 12/24/18 Range/Units 06:41 WBC 4.21 L (4.4-10.8) k/cumm RBC 3.06 L (4.00-5.20) m/cumm Hgb 7.9 L (12.0-15.5) g/dL Hct 27.4 L (36.0-46.0) % MCH 25.8 L (27.0-33.0) pg MCHC 28.8 L (32.0-36.0) g/dL RDW 19.7 H (11.7-14.6) % Absolute Lymphocytes 0.64 L (1.2-3.4) k/cumm PT (9.3-11.0) sec INR (0.9-1.1) Carbon Dioxide (21.0-32.0) mmol/L Anion Gap (3-11) mmol/L Creatinine (0.55-1.02) mg/dL Glucose (70-100) mg/dL Calcium (8.5-10.1) mg/dL Crossmatch Vital Signs Temperature 36.9 C 12/24/18 04:36 Temperature Source Temporal Artery Scan 12/24/18 04:36 Pulse 71 12/24/18 08:01 Pulse Rhythm Regular 12/22/18 23:28 Pulse 72 12/24/18 08:01 Respiratory Rate 25 H 12/24/18 08:01 Respiratory Effort 12/24/18 04:37 Respiratory Depth Normal 12/24/18 04:37 Respiratory Pattern Normal 12/24/18 04:37 Blood Pressure 125/47 L 12/24/18 08:01 Blood Pressure Mean 66 12/24/18 08:01 Blood Pressure Position Supine 12/22/18 16:21 Pulse Oximetry 96 12/24/18 08:01 Respiratory End-tidal CO2 31 12/23/18 17:55 Oxygen Delivery Method Nasal Cannula 12/24/18 07:20 Oxygen Flow Rate 3 12/24/18 07:20 Pain Level 0 12/23/18 17:55 Comment 12/23/18 19:37 Intake & Output 12/23/18 12/23/18 12/24/18 11:59 23:59 11:59 Intake Total 510.583 / 3872.821 3388.491 / 1651.074 271.166 / 271.166 Output Total 3710 / 5365 1655 / 5365 1675 / 1675 Balance -3199.417 / -3713.926 -514.509 / -3713.926 -1403.834 / -1403.834 Weight 85.1 kg 87.5 kg Intake: IV 150.583 / 486.074 335.491 / 486.074 21.166 / 21.166 Oral 360 / 840 480 / 840 Blood Product 325 / 325 250 / 250 Rbc Leuko Reduced Unit 325 / 325 [id number] Rbc Leuko Reduced Unit 250 / 250 [id number] Output: Urine 3710 / 5315 1605 / 5315 1675 / 1675 Stool 50 / 50 Other: Urine Color Pale Pale Pale Yellow Urine Appearance Clear Clear Clear Comment Urinometer placed Stool Occult Blood Positive Stool Size Smear Smear Stool Characteristics Mucoid Mucoid Emesis Description None Laboratory Results WBC 4.21 k/cumm (4.4-10.8) L 12/24/18 06:41 RBC 3.06 m/cumm (4.00-5.20) L 12/24/18 06:41 Hgb 7.9 g/dL (12.0-15.5) L 12/24/18 06:41 Hct 27.4 % (36.0-46.0) L 12/24/18 06:41 MCV 89.5 fL (80-95) 12/24/18 06:41 MCH 25.8 pg (27.0-33.0) L 12/24/18 06:41 MCHC 28.8 g/dL (32.0-36.0) L 12/24/18 06:41 RDW 19.7 % (11.7-14.6) H 12/24/18 06:41 Plt Count 226 x1000/uL (130-400) 12/24/18 06:41 MPV 8.8 fL (8.0-11.0) 12/24/18 06:41 Immature Gran % 0.2 12/24/18 06:41 Neutrophils % 69.0 12/24/18 06:41 Lymphocytes % 15.2 12/24/18 06:41 Monocytes % 13.3 12/24/18 06:41 Eosinophils % 2.1 12/24/18 06:41 Basophils % 0.2 12/24/18 06:41 Absolute Neutrophils 2.90 k/cumm (1.2-6.7) 12/24/18 06:41 Absolute Lymphocytes 0.64 k/cumm (1.2-3.4) L 12/24/18 06:41 Absolute Monocytes 0.56 k/cumm (0.11-0.7) 12/24/18 06:41 Absolute Eosinophils 0.09 k/cumm (0.0-0.7) 12/24/18 06:41 Absolute Basophils 0.01 k/cumm (0.0-0.2) 12/24/18 06:41 Differential Comment Diff reviewed 12/23/18 06:25 RBC Morphology See below 12/23/18 06:25 Polychromasia Present 12/23/18 06:25 Hypochromasia 3+ 12/23/18 06:25 Poikilocytosis 2+ 12/23/18 06:25 Anisocytosis 3+ 12/23/18 06:25 Retic Count 2.5 % (0.5-2.4) H 12/23/18 06:25 PT 11.8 sec (9.3-11.0) H 12/24/18 06:41 INR 1.2 (0.9-1.1) H 12/24/18 06:41 APTT 25.4 sec (21.0-31.4) 12/23/18 19:37 D-Dimer 560 ng/mlFEU (<500) H 12/22/18 17:15 Sodium 140 mmol/L (136-145) 12/24/18 06:41 Potassium 3.7 mmol/L (3.5-5.1) 12/24/18 06:41 Chloride 101 mmol/L (98-107) 12/24/18 06:41 Carbon Dioxide 39.2 mmol/L (21.0-32.0) H 12/24/18 06:41 Anion Gap -0.2 mmol/L (3-11) L 12/24/18 06:41 BUN 10 mg/dL (7-18) 12/24/18 06:41 Creatinine 0.38 mg/dL (0.55-1.02) L 12/24/18 06:41 Estimated GFR/1.73 m2 >= 60.00 (mL/min/1.73m2) 12/24/18 06:41 Glucose 106 mg/dL (70-100) H 12/24/18 06:41 Calcium 8.4 mg/dL (8.5-10.1) L 12/24/18 06:41 Magnesium 1.9 mg/dL (1.8-2.4) 12/24/18 06:41 Iron 10 ug/dL (50-175) L 12/23/18 07:10 TIBC 193 ug/dL (250-450) L 12/23/18 07:10 Transferrin % Sat 5 % (15-50) L 12/23/18 07:10 Ferritin 12 ng/mL (8-388) 12/23/18 06:25 Total Bilirubin < 0.1 mg/dL (0.2-1.0) L 12/22/18 17:15 AST 12 U/L (15-37) L 12/22/18 17:15 ALT 14 U/L (12-78) 12/22/18 17:15 Alkaline Phosphatase 84 U/L (46-116) 12/22/18 17:15 Lactate Dehydrogenase 134 U/L (81-234) 12/23/18 06:25 Troponin I 0.04 ng/mL (0.00-0.06) 12/24/18 06:41 NT-Pro-B Natriuret Pep 2885 pg/mL (-299) H 12/22/18 17:15 Total Protein 5.8 g/dL (6.4-8.2) L 12/22/18 17:15 Albumin 2.4 g/dL (3.4-5.0) L 12/22/18 17:15 Vitamin B12 976 pg/mL (193-986) 12/23/18 06:25 Folate > 20.0 ng/mL (8.6-20.0) H 12/23/18 06:25 TSH 3.30 uIU/mL (0.358-3.74) 12/22/18 17:15 Patient ABO/Rh A Positive 12/22/18 20:11 Antibody Screen Positive 12/22/18 20:11 Antibody Identification Anti-C 12/22/18 20: Antigen Identification Not Applicable 12/22/18 20:11 Crossmatch See Detail 12/22/18 20:11
--- NOTE | 2018-12-24 10:56 | DI.RAD_ITS ---
SYMPTOM/DIAGNOSIS: H/O LARGE LT PLEURAL EFFUSION, F/U PORTABLE AP CHEST: In comparison with the examination of 12/22, there is increasing radiodensity over the left lower lobe consistent with pneumonia and/or pleural effusion. Cardiac enlargement again noted. No shonna CHF. CONCLUSION: Findings consistent with worsening left lower lobe consolidation.
[2018-12-24] MEDS: Magnesium Oxide 400 MG TAB 800 MG PO ×2 (10:57→21:41)
[2018-12-24] MEDS: IRON SUCROSE COMPLEX 200 MG in Normal Saline 100 ML 110 MG IVPB (12:53)
[2018-12-24] MEDS: Normal Saline 500 ML 30 ML IV (12:54)
--- NOTE | 2018-12-24 14:22 | CHAPLAIN ---
Kanchan was sitting up in her bed working on word searches when I stopped in. She told me about living with Justine and Josue in [place] and how she cared for Justine's children and then the grandchildren. Justine visited last night, so Durand said she doesn't expect to see her today. Kanchan told me she is originally from [place], [place] but said she doesn't have any family members left there anymore. Kanchan easily engaged in a conversation and was pleasant and responsive to questions.
[2018-12-24 14:33] LABS: HCT 29.4 % (36.0-46.0); HGB 8.6 g/dL (12.0-15.5)
--- NOTE | 2018-12-24 14:46 | PGE_ITS ---
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 Unclear as to why she has lg PE burden. occult malig? Signif Iron def and will cont to replace- IV iron. b12/folate nl. chest Xray reviewd- (portable) does not seem to have signif eff that would require tap. OK to restart anticoags and will follow peripherally no signs of upper GI bleed. pt has documented A. polyps in EMR. no record of prior CE. no recent abdominal imaging. tolerating PO's and hemodynmcailly stable (4) Anemia: Current visit: Yes Status: Chronic (5) Acute on chronic diastolic CHF (congestive heart failure): Current visit: Yes Status: Acute (6) Pericardial effusion without cardiac tamponade: Current visit: No Status: Chronic (7) Hematest positive stools: Current visit: Yes Status: Acute (8) Pleural effusion due to congestive heart failure: Current visit: Yes Status: Acute (9) Right heart failure: Current visit: Yes Status: Acute Subjective Patient reports: tolerating a regular diet Interval history since last seen: pt faiza ok after EGD yest. no further blood BM. no abdom pain. no resp difficulties or cough today. belly soft and non tender. +BM Exam Resp Other: no cough no wheez. GI Other: soft and no pain Objective Objective Clinical Data: Abnormal lab results 12/22/18 12/23/18 12/23/18 Range/Units 20:11 19:37 21:03 WBC (4.4-10.8) k/cumm RBC (4.00-5.20) m/cumm Hgb 7.8 L (12.0-15.5) g/dL Hct 25.9 L (36.0-46.0) % MCH (27.0-33.0) pg MCHC (32.0-36.0) g/dL RDW (11.7-14.6) % Absolute Lymphocytes (1.2-3.4) k/cumm PT 14.3 H (9.3-11.0) sec INR 1.4 H (0.9-1.1) Carbon Dioxide (21.0-32.0) mmol/L Anion Gap (3-11) mmol/L Creatinine (0.55-1.02) mg/dL Glucose (70-100) mg/dL Calcium (8.5-10.1) mg/dL Crossmatch See Detail 12/24/18 12/24/18 12/24/18 Range/Units 06:41 06:41 06:41 WBC 4.21 L (4.4-10.8) k/cumm RBC 3.06 L (4.00-5.20) m/cumm Hgb 7.9 L (12.0-15.5) g/dL Hct 27.4 L (36.0-46.0) % MCH 25.8 L (27.0-33.0) pg MCHC 28.8 L (32.0-36.0) g/dL RDW 19.7 H (11.7-14.6) % Absolute Lymphocytes 0.64 L (1.2-3.4) k/cumm PT 11.8 H (9.3-11.0) sec INR 1.2 H (0.9-1.1) Carbon Dioxide 39.2 H (21.0-32.0) mmol/L Anion Gap -0.2 L (3-11) mmol/L Creatinine 0.38 L (0.55-1.02) mg/dL Glucose 106 H (70-100) mg/dL Calcium 8.4 L (8.5-10.1) mg/dL Crossmatch 12/24/18 Range/Units 14:06 WBC (4.4-10.8) k/cumm RBC (4.00-5.20) m/cumm Hgb 8.6 L (12.0-15.5) g/dL Hct 29.4 L (36.0-46.0) % MCH (27.0-33.0) pg MCHC (32.0-36.0) g/dL RDW (11.7-14.6) % Absolute Lymphocytes (1.2-3.4) k/cumm PT (9.3-11.0) sec INR (0.9-1.1) Carbon Dioxide (21.0-32.0) mmol/L Anion Gap (3-11) mmol/L Creatinine (0.55-1.02) mg/dL Glucose (70-100) mg/dL Calcium (8.5-10.1) mg/dL Crossmatch Vital Signs Temperature 36.9 C 12/24/18 04:36 Temperature Source Temporal Artery Scan 12/24/18 04:36 Pulse 71 12/24/18 11:07 Pulse Rhythm Regular 12/24/18 08:00 Pulse 75 12/24/18 11:07 Respiratory Rate 26 H 12/24/18 11:07 Respiratory Effort 12/24/18 08:00 Respiratory Depth Normal 12/24/18 08:00 Respiratory Pattern Normal 12/24/18 08:00 Blood Pressure 115/48 L 12/24/18 11:07 Blood Pressure Mean 64 12/24/18 11:07 Blood Pressure Position Supine 12/22/18 16:21 Pulse Oximetry 95 12/24/18 11:07 Respiratory End-tidal CO2 31 12/23/18 17:55 Oxygen Delivery Method Nasal Cannula 12/24/18 07:20 Oxygen Flow Rate 3 12/24/18 07:20 Pain Level 0 12/23/18 17:55 Comment 12/23/18 19:37 Intake & Output 12/23/18 12/24/18 12/24/18 23:59 11:59 23:59 Intake Total 1140.491 / 1651.074 871.166 / 872.166 2.166 Output Total 1655 / 5365 0 / 2199 Balance -514.509 / -3713.926 -1328.834 / -1327.834 1 / -1327.834 Weight 87.5 kg Intake: IV 335.491 / 486.074 21.166 / 22.166 .166 Oral 480 / 840 600 / 600 Blood Product 325 / 325 250 / 250 Rbc Leuko Reduced Unit 325 / 325 [id number] Rbc Leuko Reduced Unit 250 / 250 [id number] Output: Urine 1605 / 5315 2200 / 2200 Stool 50 / 50 Other: Urine Color Pale Pale Urine Appearance Clear Clear Stool Occult Blood Positive Stool Size Smear Smear Stool Characteristics Mucoid Mucoid Emesis Description None Laboratory Results WBC 4.21 k/cumm (4.4-10.8) L 12/24/18 06:41 RBC 3.06 m/cumm (4.00-5.20) L 12/24/18 06:41 Hgb 8.6 g/dL (12.0-15.5) L 12/24/18 14:06 Hct 29.4 % (36.0-46.0) L 12/24/18 14:06 MCV 89.5 fL (80-95) 12/24/18 06:41 MCH 25.8 pg (27.0-33.0) L 12/24/18 06:41 MCHC 28.8 g/dL (32.0-36.0) L 12/24/18 06:41 RDW 19.7 % (11.7-14.6) H 12/24/18 06:41 Plt Count 226 x1000/uL (130-400) 12/24/18 06:41 MPV 8.8 fL (8.0-11.0) 12/24/18 06:41 Immature Gran % 0.2 12/24/18 06:41 Neutrophils % 69.0 12/24/18 06:41 Lymphocytes % 15.2 12/24/18 06:41 Monocytes % 13.3 12/24/18 06:41 Eosinophils % 2.1 12/24/18 06:41 Basophils % 0.2 12/24/18 06:41 Absolute Neutrophils 2.90 k/cumm (1.2-6.7) 12/24/18 06:41 Absolute Lymphocytes 0.64 k/cumm (1.2-3.4) L 12/24/18 06:41 Absolute Monocytes 0.56 k/cumm (0.11-0.7) 12/24/18 06:41 Absolute Eosinophils 0.09 k/cumm (0.0-0.7) 12/24/18 06:41 Absolute Basophils 0.01 k/cumm (0.0-0.2) 12/24/18 06:41 Differential Comment Diff reviewed 12/23/18 06:25 RBC Morphology See below 12/23/18 06:25 Polychromasia Present 12/23/18 06:25 Hypochromasia 3+ 12/23/18 06:25 Poikilocytosis 2+ 12/23/18 06:25 Anisocytosis 3+ 12/23/18 06:25 Retic Count 2.5 % (0.5-2.4) H 12/23/18 06:25 Haptoglobin 124 mg/dL (32-197) 12/23/18 06:25 PT 11.8 sec (9.3-11.0) H 12/24/18 06:41 INR 1.2 (0.9-1.1) H 12/24/18 06:41 APTT 25.4 sec (21.0-31.4) 12/23/18 19:37 D-Dimer 560 ng/mlFEU (<500) H 12/22/18 17:15 Sodium 140 mmol/L (136-145) 12/24/18 06:41 Potassium 3.7 mmol/L (3.5-5.1) 12/24/18 06:41 Chloride 101 mmol/L (98-107) 12/24/18 06:41 Carbon Dioxide 39.2 mmol/L (21.0-32.0) H 12/24/18 06:41 Anion Gap -0.2 mmol/L (3-11) L 12/24/18 06:41 BUN 10 mg/dL (7-18) 12/24/18 06:41 Creatinine 0.38 mg/dL (0.55-1.02) L 12/24/18 06:41 Estimated GFR/1.73 m2 >= 60.00 (mL/min/1.73m2) 12/24/18 06:41 Glucose 106 mg/dL (70-100) H 12/24/18 06:41 Calcium 8.4 mg/dL (8.5-10.1) L 12/24/18 06:41 Magnesium 1.9 mg/dL (1.8-2.4) 12/24/18 06:41 Iron 10 ug/dL (50-175) L 12/23/18 07:10 TIBC 193 ug/dL (250-450) L 12/23/18 07:10 Transferrin % Sat 5 % (15-50) L 12/23/18 07:10 Ferritin 12 ng/mL (8-388) 12/23/18 06:25 Total Bilirubin < 0.1 mg/dL (0.2-1.0) L 12/22/18 17:15 AST 12 U/L (15-37) L 12/22/18 17:15 ALT 14 U/L (12-78) 12/22/18 17:15 Alkaline Phosphatase 84 U/L (46-116) 12/22/18 17:15 Lactate Dehydrogenase 134 U/L (81-234) 12/23/18 06:25 Troponin I 0.04 ng/mL (0.00-0.06) 12/24/18 06:41 NT-Pro-B Natriuret Pep 2885 pg/mL (-299) H 12/22/18 17:15 Total Protein 5.8 g/dL (6.4-8.2) L 12/22/18 17:15 Albumin 2.4 g/dL (3.4-5.0) L 12/22/18 17:15 Vitamin B12 976 pg/mL (193-986) 12/23/18 06:25 Folate > 20.0 ng/mL (8.6-20.0) H 12/23/18 06:25 TSH 3.30 uIU/mL (0.358-3.74) 12/22/18 17:15 Patient ABO/Rh A Positive 12/22/18 20:11 Antibody Screen Positive 12/22/18 20:11 Antibody Identification Anti-C 12/22/18 20:11 Antigen Identification Not Applicable 12/22/18 20:11 Crossmatch See Detail 12/22/18 20:11
--- NOTE | 2018-12-24 16:04 | WOUNDCARE ---
Wound Care Report 12/24/18 Pt is a __78_ year old male/female seen for _CHF___. Chart reviewed, including H&P, recent labs, and vital signs, and other providers? reports. 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 Acute Iron deficiency anemia due to chronic blood loss Acute Pulmonary embolism Chronic Anemia Chronic Acute on chronic diastolic CHF (congestive heart failure) Acute Home medications- Home Medications Medication Instructions Recorded Confirmed metformin 1,000 mg PO BID 11/03/13 12/22/18 metoprolol succinate 12.5 mg PO DAILY 11/03/13 12/22/18 simvastatin 10 mg PO HS 11/03/13 12/22/18 acetaminophen 325 mg PO Q6H PRN 12/22/18 12/22/18 aspirin 81 mg PO DAILY 12/22/18 12/22/18 bisacodyl 10 mg MO DAILY PRN PRN 12/22/18 12/22/18 cyanocobalamin (vitamin B-12) 1,000 mcg PO DAILY 12/22/18 12/23/18 [Vitamin B-12] ferrous sulfate 325 mg PO DAILY 12/22/18 12/22/18 folic acid 800 mg PO DAILY 12/22/18 12/22/18 furosemide [Lasix] 20 mg PO DAILY 12/22/18 12/22/18 glucagon (human recombinant) 1 mg SUBCUT DIRECTED 12/22/18 12/22/18 [Glucagon Emergency Kit (human)] glucose 10 g PO ONCE PRN 12/22/18 12/22/18 insulin lispro See Rx Instructions .ROUTE .COMPLEX 12/22/18 12/22/18 levetiracetam [Keppra] 1,000 mg PO BID 12/22/18 12/22/18 magnesium hydroxide [Milk of 30 ml PO HS PRN 12/22/18 12/22/18 Magnesia] melatonin 6 mg PO .QHS 12/22/18 12/22/18 pantoprazole [Protonix] 40 mg PO DAILY 12/22/18 12/22/18 phenytoin sodium extended 200 mg PO BID 12/22/18 12/22/18 [Dilantin Extended] polyethylene glycol 3350 [Miralax] 17 gm PO DAILY PRN PRN 12/22/18 12/22/18 warfarin [Coumadin] 7.5 mg PO QPM 12/22/18 12/22/18 Wound History- Pt states she has had pain in the area for three weeks. Pt states ?since the rehab? Wound Assessment Findings Pt has stage 3 sacral pressure ulcer. That measures 1.2 cm x 1.4 cm x 0.2 cm. Wound consists of small open areas in a horizontal and vertical lines. No undermining or tunneling noted. Wound bed 75% firmly adherent slough, 25 % pink tissue. Wound Edges Wound has defined attatched Surrounding tissue Surrounding tissue is pink, blanchable with a second open area of 1.8 cm x 1 cm x less than 0.1 cm. Skin tender to touch and soft around primary wound. Scant serous exudate noted. Patients Mobility status Pt is in bed with limited mobility so at least q 2 turning and repositioning is recommended. Nutritional Status- nutrition consult recommended Continence Pt has Brown catheter in place. Circulatory status Pt has positive pedal pulses. Pain Pt states sacral area is tender to touch and although she doesn?t know how long she has had the wound, she does state that the area has been painful ?since she went into the rehab? which she states ?was about three weeks ago? Patient/family/staff education ICU nursing staff educated on dressing recommendations Physician/nurse practitioner notification Spoke with Dr. Palafox regarding recommendations Recommendations: Cleanse with wound cleanser, pat dry, apply mepilex sacral every 3 days and PRN. Thank you for the consult.
[2018-12-24 16:36] LABS: Fructosamine 176 mcmol/L (200 - 285)
[2018-12-24] MEDS: Enoxaparin 80 MG/0.8 ML SYR SC (17:54)
[2018-12-24] MEDS: WARFARIN 5 MG, WARFARIN 2.5 MG 7.5 MG PO (19:54)
[2018-12-24] MEDS: Simvastatin 10 MG TAB PO (21:41)
[2018-12-24] MEDS: Melatonin 3 MG TAB 6 MG PO (21:41)
[2018-12-25] VITALS (35 sets, daily range): BP systolic 98–123; BP diastolic 40–73; PULSE 66–89; RESP 16–30; TEMP 36.4–37.3; O2SAT 90–100
[2018-12-25 06:49] LABS: Absolute Basophil Count 0.01 k/cumm (0.0-0.2); Absolute Eosinophil Count 0.09 k/cumm (0.0-0.7); Absolute Lymphocyte Count 0.54 k/cumm (1.2-3.4); Absolute Monocyte Count 0.59 k/cumm (0.11-0.7); Absolute Neutrophil Count 1.93 k/cumm (1.2-6.7); Basophils % 0.3; Eosinophils % 2.8; HCT 26.3 % (36.0-46.0); HGB 7.7 g/dL (12.0-15.5); Lymphocytes % 17.1; Mean Corp. HGB Concentration 29.3 g/dL (32.0-36.0); Mean Corpuscular Hemoglobin 26.6 pg (27.0-33.0); Mean Corpuscular Volume 90.7 fL (80-95); Monocytes % 18.7; Neutrophils % 61.1; Platelet Count 204 x1000/uL (130-400); RBC Distribution Width 18.7 % (11.7-14.6); White Blood Cell Count 3.16 k/cumm (4.4-10.8)
[2018-12-25 06:58] LABS: Prothrombin Time 9.8 sec (9.3-11.0)
[2018-12-25 07:04] LABS: Anion Gap 2.6 mmol/L (3-11); BUN 9 mg/dL (7-18); CO2 38.4 mmol/L (21.0-32.0); Chloride 100 mmol/L (98-107); Glucose 92 mg/dL (70-100); Magnesium 1.4 mg/dL (1.8-2.4); Potassium 3.9 mmol/L (3.5-5.1); Sodium 141 mmol/L (136-145)
[2018-12-25] MEDS: Normal Saline Flush 10 ML SYR IVP ×2 (08:49→20:31)
[2018-12-25] MEDS: Insulin Aspart 300 UNITS/3 ML PEN SC ×2 (08:49→12:36)
[2018-12-25] MEDS: Potassium Chloride 10 MEQ CAPCR 20 MEQ PO ×2 (08:50→20:30)
[2018-12-25] MEDS: Pantoprazole 40 MG VIAL IVP ×2 (08:50→20:31)
[2018-12-25] MEDS: Cyanocobalamin 500 MCG TAB 1000 MCG PO (08:50)
[2018-12-25] MEDS: levETIRAcetam 500 MG TAB 1000 MG PO ×2 (08:50→20:30)
[2018-12-25] MEDS: metFORMIN 500 MG TAB 1000 MG PO (08:50)
[2018-12-25] MEDS: Ferrous Sulfate 325 MG TAB PO (08:51)
[2018-12-25] MEDS: Metoprolol CR 25 MG TABCR 12.5 MG PO (08:51)
[2018-12-25] MEDS: Folic Acid 1 MG TAB PO (08:51)
[2018-12-25] MEDS: MAGNESIUM SULFATE 2 GM/50 ML BAG IVPB (10:23)
[2018-12-25] MEDS: Potassium Chloride 10 MEQ TABCR PO (10:25)
[2018-12-25] MEDS: Magnesium Oxide 400 MG TAB 800 MG PO ×2 (10:25→22:19)
--- NOTE | 2018-12-25 10:55 | W.PM.PROGNOT ---
Date of Service Date of service: 12/25/18 Time of Service: 10:56 Assessment and Plan (1) Anemia: Current visit: Yes Status: Chronic Evidence of low TIBC indicating potential anemia of chronic disease, but with low iron and low Ferritin. Initially considered a potential malabsorption condition such as Celiac, but Mrs. Garcia experienced a Heme + Stool shortly after admission. Initially discontinued Coumadin - patient received Vitamin K and FFP, and underwent subsequent EGD showing evidence of Esophagitis only without active bleeding. Will continue BID PPI, and in the absence of Gastric or Duodenal Ulcers discontinued Sucralfate and initiate on H2 Mickey. Current Hgb stable following 1 Unit of PRBCs with compatible blood product, with 2 additional units on standby. Will plan on repeat H/H later today to ensure stability. Also receiving IV Iron. Will resume anticoagulation with Coumadin - see below. (2) Pulmonary embolism: Current visit: Yes Status: Chronic Evidence of recent PEs, with fairly significant clot burden, RV Strain by imaging at [facility], and Exudative pleural effusion and pericardial effusion that may have been related - was initiated on Coumadin, initially held and reversed in setting of acute GIB. Bleed did not appear to be brisk, and is likely from an Upper GI Source. EGD only showing Esophagitis, and patient is currently hemodynamically stable. Following discussion with surgery decision was made to reinitiate anticoagulation. Unfortunately Apixaban is contraindicated due to patient's current antiepileptic (Phenytoin). Will restart Coumadin, use Enoxaparin as bridge, with very careful monitoring of patient's H/H, vitals, and overall clinical picture. (3) Acute on chronic diastolic CHF (congestive heart failure): Current visit: Yes Status: Acute Continue lasix gtt, and monitor renal function, I/O's, and daily weights. Continue BB therapy. Currently with good urine output, weight loss, and negative on I/O's. ECHO obtained 12/23 - shows normal LVEF, evidence of high ventricular filling pressures, and normal RV function. The patient did have mild , mod TR, and PHTN with PAP >55 mmHg. (4) Seizure disorder: Current visit: No Status: Chronic Currently on Keppra and Dilantin. (5) Diabetes type 2, controlled: Current visit: No Status: Chronic Continue to hold Metformin, and monitor on sliding scale. (6) DVT prophylaxis: Current visit: Yes Status: Acute SCD's currently, with therapeutic Enoxaparin and reinitiation of Coumadin. (7) Advance directive on file: Current visit: Yes Status: Acute Per discussion with Palliative medicine, patient will be considered DNR/DNI, with further discussion regarding goals of care to occur tomorrow. Subjective Interval history since last seen: 78-year-old woman with a recent history of b/l PE's on anticoagulation with Coumadin, admitted from [facility] Emergency Department on 12/22 with a diagnosis of CHF and worsening anemia. Ms. Garcia has a prior history of Carotid Artery Disease, s/p Right sided CEA, hx intracranial Meningioma with subsequent Seizure Disorder on AED, HTN, and Dyslipidemia. She also has known PE's on chronic AC, diagnosed last month, as well as pleural and pericardial effusion. She was admitted to [facility] between 10/26 and 11/02/2018 with a new onset CHF, with work-up showing a normal LVEF. Despite diuresis her conditioned worsened and she developed Hypercapneic Respiratory Failure requiring BiPAP therapy and ultimately a transfer to [facility]. She underwent a diagnostic and therapeutic thoracentesis on 11/07, with 800 cc's of Exudative fluid removed with Cytology suggestive of reactive Mesothelial Cells. As the patient remained hypoxic, a CT of the chest was performed on 11/15 showing subsegmental Pulmonary Emboli in the RUL and RLL, with evidence of Right Heart Congestion and RV Strain. Her LE Dopplers were negative for DVTs. She was bridged with Lovenox and transitioned to Coumadin, with plans for a 3 month course of anticoagulation. Of note, the patient was also anemic, with a Hgb of 6.6 which required transfusion. Her Hemoglobin was 8.1 at time of discharge, and her stool was reportedly Hemoccult negative. She was discharged to [facility] following the conclusion of her hospital course. The patient had progressive weight gain over the course of the last 2 weeks while at the rehab, with an increase from an admission weight of 74 Kg, to 87 Kg at time of her admission to [facility]. At time of presentation she was noted to have an elevated BNP, Hgb of 7, and findings of CHF by CXR (mild) with small bilateral effusions. She was admitted and maintained on a lasix drip, and reported improvement in her breathing. She ruled out with serial cardiac biomarkers. However, her Hgb returned lower at 6.5, and when attempting to type and screen her blood evidence of antibodies were detected. Iron studies showed evidence of iron deficiency, and soon after admission she was noted to be Heme + by Fecal Occult Blood Testing. She underwent an EGD which showed evidence of some distal Esophagitis, but no active bleeding. She also received 1 Unit of PRBCs. Ms. Garcia remains stable but still requiring oxygen. Her CXR from 12/24 showed worsening left pleural effusion. Hgb remains low but stable, and she was initiated back on therapeutic anticoagulation. The patient herself has no complaints again this morning and feels improved. She was also seen by Palliative medicine, with resultant code status change to DNR/DNI. No overnight events reported. She remains afebrile. Exam Narrative Exam Narrative: General: Patient appears comfortable, AAOX3 at time of exam, NAD Neck: Supple CV: Regular, nontachycardic, S1S2, No rubs, murmurs, or gallops. Pulmonary: bibasilar crackles appear improved, L > R, otherwise without rhonchi or wheezing Abdomen: + Bowel Sounds, soft, nontender, nondistended Vascular: 1+ B/l lower extremity edema Psych: Normal mood and affect. Objective Objective Clinical Data: Abnormal lab results 12/22/18 12/23/18 12/24/18 Range/Units 20:11 06:25 14:06 WBC (4.4-10.8) k/cumm RBC (4.00-5.20) m/cumm Hgb 8.6 L (12.0-15.5) g/dL Hct 29.4 L (36.0-46.0) % MCH (27.0-33.0) pg MCHC (32.0-36.0) g/dL RDW (11.7-14.6) % Absolute Lymphocytes (1.2-3.4) k/cumm Carbon Dioxide (21.0-32.0) mmol/L Anion Gap (3-11) mmol/L Creatinine (0.55-1.02) mg/dL Fructosamine 176 L (200 - 285) mcmol/L Calcium (8.5-10.1) mg/dL Magnesium (1.8-2.4) mg/dL Crossmatch See Detail 12/25/18 12/25/18 Range/Units 06:30 06:30 WBC 3.16 L (4.4-10.8) k/cumm RBC 2.90 L (4.00-5.20) m/cumm Hgb 7.7 L (12.0-15.5) g/dL Hct 26.3 L (36.0-46.0) % MCH 26.6 L (27.0-33.0) pg MCHC 29.3 L (32.0-36.0) g/dL RDW 18.7 H (11.7-14.6) % Absolute Lymphocytes 0.54 L (1.2-3.4) k/cumm Carbon Dioxide 38.4 H (21.0-32.0) mmol/L Anion Gap 2.6 L (3-11) mmol/L Creatinine 0.50 L (0.55-1.02) mg/dL Fructosamine (200 - 285) mcmol/L Calcium 8.0 L (8.5-10.1) mg/dL Magnesium 1.4 L (1.8-2.4) mg/dL Crossmatch Vital Signs Temperature 37.3 C 12/25/18 08:58 Temperature Source Temporal Artery Scan 12/25/18 08:58 Pulse 66 12/25/18 08:00 Pulse Rhythm Regular 12/24/18 08:00 Pulse 87 12/25/18 08:01 Respiratory Rate 23 12/25/18 08:01 Respiratory Effort 12/25/18 09:49 Respiratory Depth Normal 12/25/18 09:49 Respiratory Pattern Normal 12/25/18 09:49 Blood Pressure 123/50 L 12/25/18 08:00 Blood Pressure Mean 68 12/25/18 08:00 Blood Pressure Position Supine 12/24/18 16:00 Pulse Oximetry 100 12/25/18 09:49 Respiratory End-tidal CO2 31 12/23/18 17:55 Oxygen Delivery Method Nasal Cannula 12/25/18 09:49 Oxygen Flow Rate 2 12/25/18 09:49 Pain Level 0 12/25/18 09:49 Comment 12/23/18 19:37 Intake & Output 12/24/18 12/24/18 12/25/18 11:59 23:59 11:59 Intake Total 871.166 / 5951.146 1727.040 / 1902.206 254.333 / 254.333 Output Total 2199 / 4574 Balance -1328.834 / -2672.794 -1018.960 / -2672.794 -1825.667 / -1825.667 Weight 87.5 kg 86.7 kg Intake: IV 21.166 / 252.206 231.040 / 252.206 4.333 / 4.333 Oral 600 / 1400 800 / 1400 250 / 250 Blood Product 250 / 250 Rbc Leuko Reduced Unit 250 / 250 [id number] Output: Urine 2199 Other: Urine Color Pale Pale Pale Yellow Urine Appearance Clear Clear Clear Comment Urometer in place with dhaliwal; patent; lasix gtt Indwelling dhaliwal catheter in place. Indwelling dhaliwal catheter in place. Stool Size Smear Small Stool Characteristics Mucoid Mucoid Laboratory Results WBC 3.16 k/cumm (4.4-10.8) L 12/25/18 06:30 RBC 2.90 m/cumm (4.00-5.20) L 12/25/18 06:30 Hgb 7.7 g/dL (12.0-15.5) L 12/25/18 06:30 Hct 26.3 % (36.0-46.0) L 12/25/18 06:30 MCV 90.7 fL (80-95) 12/25/18 06:30 MCH 26.6 pg (27.0-33.0) L 12/25/18 06:30 MCHC 29.3 g/dL (32.0-36.0) L 12/25/18 06:30 RDW 18.7 % (11.7-14.6) H 12/25/18 06:30 Plt Count 204 x1000/uL (130-400) 12/25/18 06:30 MPV 8.0 fL (8.0-11.0) 12/25/18 06:30 Immature Gran % 0.0 12/25/18 06:30 Neutrophils % 61.1 12/25/18 06:30 Lymphocytes % 17.1 12/25/18 06:30 Monocytes % 18.7 05/16/19 06:30 Eosinophils % 2.8 12/25/18 06:30 Basophils % 0.3 12/25/18 06:30 Absolute Neutrophils 1.93 k/cumm (1.2-6.7) 12/25/18 06:30 Absolute Lymphocytes 0.54 k/cumm (1.2-3.4) L 12/25/18 06:30 Absolute Monocytes 0.59 k/cumm (0.11-0.7) 12/25/18 06:30 Absolute Eosinophils 0.09 k/cumm (0.0-0.7) 12/25/18 06:30 Absolute Basophils 0.01 k/cumm (0.0-0.2) 12/25/18 06:30 Differential Comment Diff reviewed 12/23/18 06:25 RBC Morphology See below 12/23/18 06:25 Polychromasia Present 12/23/18 06:25 Hypochromasia 3+ 12/23/18 06:25 Poikilocytosis 2+ 12/23/18 06:25 Anisocytosis 3+ 12/23/18 06:25 Retic Count 2.5 % (0.5-2.4) H 12/23/18 06:25 Haptoglobin 124 mg/dL (32-197) 12/23/18 06:25 PT 9.8 sec (9.3-11.0) 12/25/18 06:30 INR 1.0 (0.9-1.1) 12/25/18 06:30 APTT 25.4 sec (21.0-31.4) 12/23/18 19:37 D-Dimer 560 ng/mlFEU (<500) H 12/22/18 17:15 Sodium 141 mmol/L (136-145) 12/25/18 06:30 Potassium 3.9 mmol/L (3.5-5.1) 12/25/18 06:30 Chloride 100 mmol/L (98-107) 12/25/18 06:30 Carbon Dioxide 38.4 mmol/L (21.0-32.0) H 12/25/18 06:30 Anion Gap 2.6 mmol/L (3-11) L 12/25/18 06:30 BUN 9 mg/dL (7-18) 12/25/18 06:30 Creatinine 0.50 mg/dL (0.55-1.02) L 12/25/18 06:30 Estimated GFR/1.73 m2 >= 60.00 (mL/min/1.73m2) 12/25/18 06:30 Glucose 92 mg/dL (70-100) 12/25/18 06:30 Fructosamine 176 mcmol/L (200 - 285) L 12/23/18 06:25 Calcium 8.0 mg/dL (8.5-10.1) L 12/25/18 06:30 Magnesium 1.4 mg/dL (1.8-2.4) L 12/25/18 06:30 Iron 10 ug/dL (50-175) L 12/23/18 07:10 TIBC 193 ug/dL (250-450) L 12/23/18 07:10 Transferrin % Sat 5 % (15-50) L 12/23/18 07:10 Ferritin 12 ng/mL (8-388) 12/23/18 06:25 Total Bilirubin < 0.1 mg/dL (0.2-1.0) L 12/22/18 17:15 AST 12 U/L (15-37) L 12/22/18 17:15 ALT 14 U/L (12-78) 12/22/18 17:15 Alkaline Phosphatase 84 U/L (46-116) 12/22/18 17:15 Lactate Dehydrogenase 134 U/L (81-234) 12/23/18 06:25 Troponin I 0.04 ng/mL (0.00-0.06) 12/24/18 06:41 NT-Pro-B Natriuret Pep 2885 pg/mL (-299) H 12/22/18 17:15 Total Protein 5.8 g/dL (6.4-8.2) L 12/22/18 17:15 Albumin 2.4 g/dL (3.4-5.0) L 12/22/18 17:15 Vitamin B12 976 pg/mL (193-986) 12/23/18 06:25 Folate > 20.0 ng/mL (8.6-20.0) H 12/23/18 06:25 TSH 3.30 uIU/mL (0.358-3.74) 12/22/18 17:15 Patient ABO/Rh A Positive 12/22/18 20:11 Antibody Screen Positive 12/22/18 20:11 Antibody Identification Anti-C 12/22/18 20:11 Antigen Identification Not Applicable 12/22/18 20:11 Crossmatch See Detail 12/22/18 20:11
--- NOTE | 2018-12-25 11:06 | PGE_ITS ---
Date of Service Date of service: 12/25/18 Time of Service: 10:56 Assessment and Plan (1) Anemia: Current visit: Yes Status: Chronic Evidence of low TIBC indicating potential anemia of chronic disease, but with low iron and low Ferritin. Initially considered a potential malabsorption condition such as Celiac, but Mrs. Garcia experienced a Heme + Stool shortly after admission. Initially discontinued Coumadin - patient received Vitamin K and FFP, and underwent subsequent EGD showing evidence of Esophagitis only without active bleeding. Will continue BID PPI, and in the absence of Gastric or Duodenal Ulcers discontinued Sucralfate and initiate on H2 Mickey. Current Hgb stable following 1 Unit of PRBCs with compatible blood product, with 2 additional units on standby. Will plan on repeat H/H later today to ensure stability. Also receiving IV Iron. Will resume anticoagulation with Coumadin - see below. (2) Pulmonary embolism: Current visit: Yes Status: Chronic Evidence of recent PEs, with fairly significant clot burden, RV Strain by imaging at [facility], and Exudative pleural effusion and pericardial effusion that may have been related - was initiated on Coumadin, initially held and reversed in setting of acute GIB. Bleed did not appear to be brisk, and is likely from an Upper GI Source. EGD only showing Esophagitis, and patient is currently hemodynamically stable. Following discussion with surgery decision was made to reinitiate anticoa gulation. Unfortunately Apixaban is contraindicated due to patient's current antiepileptic (Phenytoin). Will restart Coumadin, use Enoxaparin as bridge, with very careful monitoring of patient's H/H, vitals, and overall clinical picture. (3) Acute on chronic diastolic CHF (congestive heart failure): Current visit: Yes Status: Acute Continue lasix gtt, and monitor renal function, I/O's, and daily weights. Continue BB therapy. Currently with good urine output, weight loss, and negative on I/O's. ECHO obtained 12/23 - shows normal LVEF, evidence of high ventricular filling pressures, and normal RV function. The patient did have mild , mod TR, and PHTN with PAP >55 mmHg. (4) Seizure disorder: Current visit: No Status: Chronic Currently on Keppra and Dilantin. (5) Diabetes type 2, controlled: Current visit: No Status: Chronic Continue to hold Metformin, and monitor on sliding scale. (6) DVT prophylaxis: Current visit: Yes Status: Acute SCD's currently, with therapeutic Enoxaparin and reinitiation of Coumadin. (7) Advance directive on file: Current visit: Yes Status: Acute Per discussion with Palliative medicine, patient will be considered DNR/DNI, with further discussion regarding goals of care to occur tomorrow. Subjective Interval history since last seen: 78-year-old woman with a recent history of b/l PE's on anticoagulation with Coumadin, admitted from [facility] Emergency Department on 12/22 with a diagnosis of CHF and worsening anemia. Ms. Garcia has a prior history of Carotid Artery Disease, s/p Right sided CEA, hx intracranial Meningioma with subsequent Seizure Disorder on AED, HTN, and Dyslipidemia. She also has known PE's on chronic AC, diagnosed last month, as well as pleural and pericardial effusion. She was admitted to [facility] between 10/26 and 11/02/2018 with a new onset CHF, with work-up showing a normal LVEF. Despite diuresis her conditioned worsened and she developed Hypercapneic Respiratory Failure requiring BiPAP therapy and ultimately a transfer to [facility]. She underwent a diagnostic and therapeutic thoracentesis on 11/07, with 800 cc's of Exudative fluid removed with Cytology suggestive of reactive Mesothelial Cells. As the patient remained hypoxic, a CT of the chest was performed on 11/15 showing subsegmental Pulmonary Emboli in the RUL and RLL, with evidence of Right Heart Congestion and RV Strain. Her LE Dopplers were negative for DVTs. She was bridged with Lovenox and transitioned to Coumadin, with plans for a 3 month course of anticoagulation. Of note, the patient was also anemic, with a Hgb of 6.6 which required transfusion. Her Hemoglobin was 8.1 at time of discharge, and her stool was reportedly Hemoccult negative. She was discharged to [facility] following the conclusion of her hospital course. The patient had progressive weight gain over the course of the last 2 weeks while at the rehab, with an increase from an admission weight of 74 Kg, to 87 Kg at time of her admission to [facility]. At time of presentation she was noted to have an elevated BNP, Hgb of 7, and findings of CHF by CXR (mild) with small bilateral effusions. She was admitted and maintained on a lasix drip, and reported improvement in her breathing. She ruled out with serial cardiac biomarkers. However, her Hgb returned lower at 6.5, and when attempting to type and screen her blood evidence of antibodies were detected. Iron studies showed evidence of iron deficiency, and soon after admission she was noted to be Heme + by Fecal Occult Blood Testing. She underwent an EGD which showed evidence of some distal Esophagitis, but no active bleeding. She also received 1 Unit of PRBCs. Ms. Garcia remains stable but still requiring oxygen. Her CXR from 12/24 showed worsening left pleural effusion. Hgb remains low but stable, and she was initiated back on therapeutic anticoagulation. The patient herself has no complaints again this morning and feels improved. She was also seen by Palliative medicine, with resultant code status change to DNR/DNI. No overnight events reported. She remains afebrile. Exam Narrative Exam Narrative: General: Patient appears comfortable, AAOX3 at time of exam, NAD Neck: Supple CV: Regular, nontachycardic, S1S2, No rubs, murmurs, or gallops. Pulmonary: bibasilar crackles appear improved, L > R, otherwise without rhonchi or wheezing Abdomen: + Bowel Sounds, soft, nontender, nondistended Vascular: 1+ B/l lower extremity edema Psych: Normal mood and affect. Objective Objective Clinical Data: Abnormal lab results 12/22/18 12/23/18 12/24/18 Range/Units 20:11 06:25 14:06 WBC (4.4-10.8) k/cumm RBC (4.00-5.20) m/cumm Hgb 8.6 L (12.0-15.5) g/dL Hct 29.4 L (36.0-46.0) % MCH (27.0-33.0) pg MCHC (32.0-36.0) g/dL RDW (11.7-14.6) % Absolute Lymphocytes (1.2-3.4) k/cumm Carbon Dioxide (21.0-32.0) mmol/L Anion Gap (3-11) mmol/L Creatinine (0.55-1.02) mg/dL Fructosamine 176 L (200 - 285) mcmol/L Calcium (8.5-10.1) mg/dL Magnesium (1.8-2.4) mg/dL Crossmatch See Detail 12/25/18 12/25/18 Range/Units 06:30 06:30 WBC 3.16 L (4.4-10.8) k/cumm RBC 2.90 L (4.00-5.20) m/cumm Hgb 7.7 L (12.0-15.5) g/dL Hct 26.3 L (36.0-46.0) % MCH 26.6 L (27.0-33.0) pg MCHC 29.3 L (32.0-36.0) g/dL RDW 18.7 H (11.7-14.6) % Absolute Lymphocytes 0.54 L (1.2-3.4) k/cumm Carbon Dioxide 38.4 H (21.0-32.0) mmol/L Anion Gap 2.6 L (3-11) mmol/L Creatinine 0.50 L (0.55-1.02) mg/dL Fructosamine (200 - 285) mcmol/L Calcium 8.0 L (8.5-10.1) mg/dL Magnesium 1.4 L (1.8-2.4) mg/dL Crossmatch Vital Signs Temperature 37.3 C 12/25/18 08:58 Temperature Source Temporal Artery Scan 12/25/18 08:58 Pulse 66 12/25/18 08:00 Pulse Rhythm Regular 12/24/18 08:00 Pulse 87 12/25/18 08:01 Respiratory Rate 23 12/25/18 08:01 Respiratory Effort 12/25/18 09:49 Respiratory Depth Normal 12/25/18 09:49 Respiratory Pattern Normal 12/25/18 09:49 Blood Pressure 123/50 L 12/25/18 08:00 Blood Pressure Mean 68 12/25/18 08:00 Blood Pressure Position Supine 12/24/18 16:00 Pulse Oximetry 100 12/25/18 09:49 Respiratory End-tidal CO2 31 12/23/18 17:55 Oxygen Delivery Method Nasal Cannula 12/25/18 09:49 Oxygen Flow Rate 2 12/25/18 09:49 Pain Level 0 12/25/18 09:49 Comment 12/23/18 19:37 Intake & Output 12/24/18 12/24/18 12/25/18 11:59 23:59 11:59 Intake Total 871.166 / 1040.835 0965.040 / 1902.206 254.333 / 254.333 Output Total 2199 Balance -1328.834 / -2672.794 -1018.960 / -2672.794 -1825.667 / -1825.667 Weight 87.5 kg 86.7 kg Intake: IV 21.166 / 252.206 231.040 / 252.206 4.333 / 4.333 Oral 600 / 1400 800 / 1400 250 / 250 Blood Product 250 / 250 Rbc Leuko Reduced Unit 250 / 250 [id number] Output: Urine 2199 Other: Urine Color Pale Pale Pale Yellow Urine Appearance Clear Clear Clear Comment Urometer in place with dhaliwal; patent; lasix gtt Indwelling dhaliwal catheter in place. Indwelling dhaliwal catheter in place. Stool Size Smear Small Stool Characteristics Mucoid Mucoid Laboratory Results WBC 3.16 k/cumm (4.4-10.8) L 12/25/18 06:30 RBC 2.90 m/cumm (4.00-5.20) L 12/25/18 06:30 Hgb 7.7 g/dL (12.0-15.5) L 12/25/18 06:30 Hct 26.3 % (36.0-46.0) L 12/25/18 06:30 MCV 90.7 fL (80-95) 12/25/18 06:30 MCH 26.6 pg (27.0-33.0) L 12/25/18 06:30 MCHC 29.3 g/dL (32.0-36.0) L 12/25/18 06:30 RDW 18.7 % (11.7-14.6) H 12/25/18 06:30 Plt Count 204 x1000/uL (130-400) 12/25/18 06:30 MPV 8.0 fL (8.0-11.0) 12/25/18 06:30 Immature Gran % 0.0 12/25/18 06:30 Neutrophils % 61.1 12/25/18 06:30 Lymphocytes % 17.1 12/25/18 06:30 Monocytes % 18.7 12/25/18 06:30 Eosinophils % 2.8 12/25/18 06:30 Basophils % 0.3 12/25/18 06:30 Absolute Neutrophils 1.93 k/cumm (1.2-6.7) 12/25/18 06:30 Absolute Lymphocytes 0.54 k/cumm (1.2-3.4) L 12/25/18 06:30 Absolute Monocytes 0.59 k/cumm (0.11-0.7) 12/25/18 06:30 Absolute Eosinophils 0.09 k/cumm (0.0-0.7) 12/25/18 06:30 Absolute Basophils 0.01 k/cumm (0.0-0.2) 12/25/18 06:30 Differential Comment Diff reviewed 12/23/18 06:25 RBC Morphology See below 12/23/18 06:25 Polychromasia Present 12/23/18 06:25 Hypochromasia 3+ 12/23/18 06:25 Poikilocytosis 2+ 12/23/18 06:25 Anisocytosis 3+ 12/23/18 06:25 Retic Count 2.5 % (0.5-2.4) H 12/23/18 06:25 Haptoglobin 124 mg/dL (32-197) 12/23/18 06:25 PT 9.8 sec (9.3-11.0) 12/25/18 06:30 INR 1.0 (0.9-1.1) 12/25/18 06:30 APTT 25.4 sec (21.0-31.4) 12/23/18 19:37 D-Dimer 560 ng/mlFEU (<500) H 12/22/18 17:15 Sodium 141 mmol/L (136-145) 12/25/18 06:30 Potassium 3.9 mmol/L (3.5-5.1) 12/25/18 06:30 Chloride 100 mmol/L (98-107) 12/25/18 06:30 Carbon Dioxide 38.4 mmol/L (21.0-32.0) H 12/25/18 06:30 Anion Gap 2.6 mmol/L (3-11) L 12/25/18 06:30 BUN 9 mg/dL (7-18) 12/25/18 06:30 Creatinine 0.50 mg/dL (0.55-1.02) L 12/25/18 06:30 Estimated GFR/1.73 m2 >= 60.00 (mL/min/1.73m2) 12/25/18 06:30 Glucose 92 mg/dL (70-100) 12/25/18 06:30 Fructosamine 176 mcmol/L (200 - 285) L 12/23/18 06:25 Calcium 8.0 mg/dL (8.5-10.1) L 12/25/18 06:30 Magnesium 1.4 mg/dL (1.8-2.4) L 12/25/18 06:30 Iron 10 ug/dL (50-175) L 12/23/18 07:10 TIBC 193 ug/dL (250-450) L 12/23/18 07:10 Transferrin % Sat 5 % (15-50) L 12/23/18 07:10 Ferritin 12 ng/mL (8-388) 12/23/18 06:25 Total Bilirubin < 0.1 mg/dL (0.2-1.0) L 12/22/18 17:15 AST 12 U/L (15-37) L 12/22/18 17:15 ALT 14 U/L (12-78) 12/22/18 17:15 Alkaline Phosphatase 84 U/L (46-116) 12/22/18 17:15 Lactate Dehydrogenase 134 U/L (81-234) 12/23/18 06:25 Troponin I 0.04 ng/mL (0.00-0.06) 12/24/18 06:41 NT-Pro-B Natriuret Pep 2885 pg/mL (-299) H 12/22/18 17:15 Total Protein 5.8 g/dL (6.4-8.2) L 12/22/18 17:15 Albumin 2.4 g/dL (3.4-5.0) L 12/22/18 17:15 Vitamin B12 976 pg/mL (193-986) 12/23/18 06:25 Folate > 20.0 ng/mL (8.6-20.0) H 12/23/18 06:25 TSH 3.30 uIU/mL (0.358-3.74) 12/22/18 17:15 Patient ABO/Rh A Positive 12/22/18 20:11 Antibody Screen Positive 12/22/18 20:11 Antibody Identification Anti-C 12/22/18 20:11 Antigen Identification Not Applicable 12/22/18 20:11 Crossmatch See Detail 12/22/18 20:11
--- NOTE | 2018-12-25 11:06 | W.NUTCONSULT ---
Date of service: 12/25/18 Time of Service: 11:07 Nutritional Consult ASSESSMENT: Ms. Brown reports that she is eating well on her consistent carbohydrate, heart healthy nutrition therapy. She also reports that before her sudden weight gain, her weight was stable and she felt her strength has been good and well maintained. She is 66 and her usual body weight is 169 llbs which is a BMI of 28 kg/m2, which is WNL for her age. She does have chronic anemia from chronic and acute blood loss. NUTRITIONAL DIAGNOSIS: Altered gastrointestinal function resulting in iron deficiency anemia. INTERVENTION: Offered Ms. Garcia Dyllan liquid supplements, which contain glutamine and arginine and can be beneficial in healing the gut. She refused at this time. Encouraged her to continue to eat the nutrient dense meals that she is getting her. She agreed. Will provide nutrition education regarding high iron nutrition therapy prior to discharge if desired or any other nutrition education needs. MONITORING AND EVALUATION: 1. Will continue to monitor progress. 2. Will evaluate nutrition care plan ongoing and adjust as needed. Thank you for the consult. Time Spent in Nutritional Counseling and Treatment: MONICA
[2018-12-25] MEDS: Enoxaparin 80 MG/0.8 ML SYR SC (11:54)
[2018-12-25] MEDS: IRON SUCROSE COMPLEX 200 MG in Normal Saline 100 ML 110 MG IVPB (12:57)
[2018-12-25 14:36] LABS: HCT 27.6 % (36.0-46.0); HGB 8.1 g/dL (12.0-15.5)
--- NOTE | 2018-12-25 15:14 | PDOC.CMPRO ---
Care Management Progress Note S/O: Kanchan was lying in bed when CM met with her. She met with Dr. Mcnally today to discuss goals of care. Dr. Mcnally requested this promotion writer coordinate Palliative Consult with Kanchan and Justine tomorrow at approximately 1300. CM left for Justine with request. Kanchan reports she would like to return home upon discharge; discharge plans will hopefully be clarified during PC Consult with Kanchan's caregiver who was unavailable today due to a in her family. MARTHA will continue to follow. A: 78 year old female admitted to [facility] 12/22/18 with CHF and Anemia P: Kanchan will discharge when ready per MD; undetermined now if she will return to [facility] or to her caregiver's home; Justine. Anticipate she will have new Eliquis prescription. Transportation dependent on mobility and disposition.
--- NOTE | 2018-12-25 15:19 | CMPROGNOTE_ITS ---
Care Management Progress Note S/O: Kanchan was lying in bed when CM met with her. She met with Dr. Mcnally today to discuss goals of care. Dr. Mcnally requested this senior grant writer coordinate Palliative Consult with Kanchan and Justine tomorrow at approximately 1300. CM left for Justine with request. Kanchan reports she would like to return home upon discharge; discharge plans will hopefully be clarified during PC Consult with Kanchan's caregiver who was unavailable today due to a in her family. MARTHA will continue to follow. A: 78 year old female admitted to [facility] 12/22/18 with CHF and Anemia P: Kanchan will discharge when ready per MD; undetermined now if she will return to [facility] or to her caregiver's home; Just[place]. Anticipate she will have new Eliquis prescription. Transportation dependent on mobility and disposition.
[2018-12-25] MEDS: Warfarin 5 MG TAB PO (17:20)
[2018-12-25] MEDS: WARFARIN 5 MG, WARFARIN 2.5 MG 7.5 MG PO (20:30)
[2018-12-25] MEDS: Enoxaparin 100 MG/ML SYR 86 MG SC (20:31)
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
[2018-12-25] MEDS: Melatonin 3 MG TAB 6 MG PO (22:19)
[2018-12-25] MEDS: Simvastatin 10 MG TAB PO (22:20)
[2018-12-26] VITALS (16 sets, daily range): BP systolic 102–126; BP diastolic 33–95; PULSE 70–88; RESP 21–32; TEMP 37–37.2; O2SAT 92–97
[2018-12-26 07:24] LABS: Abs Immature Grans 0.01 k/cumm (0.0-0.09); Absolute Basophil Count 0.01 k/cumm (0.0-0.2); Absolute Eosinophil Count 0.11 k/cumm (0.0-0.7); Absolute Lymphocyte Count 0.69 k/cumm (1.2-3.4); Absolute Monocyte Count 0.63 k/cumm (0.11-0.7); Basophils % 0.3; Eosinophils % 3.3; HCT 27.5 % (36.0-46.0); HGB 7.9 g/dL (12.0-15.5); Immature Grans % 0.3; Lymphocytes % 20.6; Mean Corp. HGB Concentration 28.7 g/dL (32.0-36.0); Mean Corpuscular Hemoglobin 26.3 pg (27.0-33.0); Mean Corpuscular Volume 91.7 fL (80-95); Mean Platelet Volume 8.4 fL (8.0-11.0); Monocytes % 18.8; Neutrophils % 56.7; Platelet Count 233 x1000/uL (130-400); RBC Distribution Width 18.3 % (11.7-14.6); White Blood Cell Count 3.35 k/cumm (4.4-10.8)
[2018-12-26 07:38] LABS: BUN 12 mg/dL (7-18); Calcium 8.2 mg/dL (8.5-10.1); Chloride 98 mmol/L (98-107); Glucose 95 mg/dL (70-100); Magnesium 1.6 mg/dL (1.8-2.4); Potassium 3.8 mmol/L (3.5-5.1); Sodium 139 mmol/L (136-145)
[2018-12-26 07:39] LABS: Prothrombin Time 10.3 sec (9.3-11.0)
[2018-12-26] MEDS: Insulin Aspart 300 UNITS/3 ML PEN SC ×3 (08:20→18:15)
[2018-12-26] MEDS: Enoxaparin 100 MG/ML SYR 86 MG SC ×2 (08:50→19:17)
[2018-12-26] MEDS: Normal Saline Flush 10 ML SYR IVP (08:50)
[2018-12-26] MEDS: Pantoprazole 40 MG VIAL IVP ×2 (08:50→19:18)
[2018-12-26] MEDS: Folic Acid 1 MG TAB PO (08:51)
[2018-12-26] MEDS: Ferrous Sulfate 325 MG TAB PO (08:51)
[2018-12-26] MEDS: levETIRAcetam 500 MG TAB 1000 MG PO ×2 (08:51→19:17)
[2018-12-26] MEDS: Potassium Chloride 10 MEQ CAPCR 20 MEQ PO ×2 (08:52→19:18)
[2018-12-26] MEDS: Cyanocobalamin 500 MCG TAB 1000 MCG PO (08:52)
[2018-12-26] MEDS: Metoprolol CR 25 MG TABCR 12.5 MG PO (08:52)
[2018-12-26] MEDS: Magnesium Oxide 400 MG TAB 800 MG PO ×2 (10:28→19:19)
[2018-12-26] MEDS: Potassium Chloride 20 MEQ TABCR PO (10:29)
--- NOTE | 2018-12-26 10:56 | PGE_ITS ---
Date of Service Date of service: 12/26/18 Time of Service: 10:49 Assessment and Plan (1) Anemia: Current visit: Yes Status: Chronic Evidence of low TIBC indicating potential anemia of chronic disease, but with low iron and low Ferritin. Initially considered a potential malabsorption condition such as Celiac, but Mrs. Garcia experienced a Heme + Stool shortly after admission. Initially discontinued Coumadin - patient received Vitamin K and FFP, and underwent subsequent EGD showing evidence of Esophagitis only without active bleeding. Will continue BID PPI, and in the absence of Gastric or Duodenal Ulcers discontinued Sucralfate and initiate on H2 Mickey. Current Hgb stable following 1 Unit of PRBCs with compatible blood product, with 2 additional units on standby. Hgb continues to be stable. Also received IV Iron. Resumed anticoagulation with Coumadin - see below. (2) Pulmonary embolism: Current visit: Yes Status: Chronic Evidence of recent PEs, with fairly significant clot burden, RV Strain by imaging at [facility], and Exudative pleural effusion and pericardial effusion that may have been related - was initiated on Coumadin, initially held and reversed in setting of acute GIB. Bleed did not appear to be brisk, and is likely from an Upper GI Source. EGD only showing Esophagitis, and patient is currently hemodynamically stable. Following discussion with surgery decision was made to reinitiate anticoagulation. Unfortunately Apixaban is contraindicated due to patient's current antiepileptic (Phenytoin). Coumadin restarted, with therapeutic dosed Enoxaparin as bridge, with very careful monitoring of patient's H/H, vitals, and overall clinical picture. (3) Acute on chronic diastolic CHF (congestive heart failure): Current visit: Yes Status: Acute Continue lasix gtt, and monitor renal function, I/O's, and daily weights. Continue BB therapy. Currently with good urine output, weight loss, and negative on I/O's. ECHO obtained 12/23 - shows normal LVEF, evidence of high ventricular filling pressures, and normal RV function. The patient did have mild , mod TR, and PHTN with PAP >55 mmHg. (4) Seizure disorder: Current visit: No Status: Chronic Currently on Keppra and Dilantin. (5) Diabetes type 2, controlled: Current visit: No Status: Chronic Continue to hold Metformin, and monitor on sliding scale. Blood sugars appear to be adequate. (6) DVT prophylaxis: Current visit: Yes Status: Acute SCD's currently, with therapeutic Enoxaparin and Coumadin. Monitoring daily INR. (7) Advance directive on file: Current visit: Yes Status: Acute Per discussion with Palliative medicine, patient will be considered DNR/DNI, with further discussion regarding goals of care to occur later today. Subjective Interval history since last seen: 78-year-old woman with a recent history of b/l PE's on anticoagulation with Coumadin, admitted from [facility] Emergency Department on 12/22 with a diagnosis of CHF and worsening anemia. Ms. Garcia has a prior history of Carotid Artery Disease, s/p Right sided CEA, hx intracranial Meningioma with subsequent Seizure Disorder on AED, HTN, and Dyslipidemia. She also has known PE's on chronic AC, diagnosed last month, as well as pleural and pericardial effusion. She was admitted to [facility] between 10/26 and 11/02/2018 with a new onset CHF, with work-up showing a normal LVEF. Despite diuresis her conditioned worsened and she developed Hypercapneic Respiratory Failure requiring BiPAP therapy and ultimately a transfer to [facility]. She underwent a diagnostic and therapeutic thoracentesis on 11/07, with 800 cc's of Exudative fluid removed with Cytology suggestive of reactive Mesothelial Cells. As the patient remained hypoxic, a CT of the chest was performed on 11/15 showing subsegmental Pulmonary Emboli in the RUL and RLL, with evidence of Right Heart Congestion and RV Strain. Her LE Dopplers were negative for DVTs. She was bridged with Lovenox and transitioned to Coumadin, with plans for a 3 month course of anticoagulation. Of note, the patient was also anemic, with a Hgb of 6.6 which required transfusion. Her Hemoglobin was 8.1 at time of discharge, and her stool was reportedly Hemoccult negative. She was discharged to [facility] following the conclusion of her hospital course. The patient had progressive weight gain over the course of the last 2 weeks while at the rehab, with an increase from an admission weight of 74 Kg, to 87 Kg at time of her admission to [facility]. At time of presentation she was noted to have an elevated BNP, Hgb of 7, and findings of CHF by CXR (mild) with small bilateral effusions. She was admitted and maintained on a lasix drip, and reported improvement in her breathing. She ruled out with serial cardiac biomarkers. However, her Hgb returned lower at 6.5, and when attempting to type and screen her blood evidence of antibodies were detected. Iron studies showed evidence of iron deficiency, and soon after admission she was noted to be Heme + by Fecal Occult Blood Testing. She underwent an EGD which showed evidence of some distal Esophagitis, but no active bleeding. She also received 1 Unit of PRBCs. Ms. Garcia remains stable but still requiring minimal oxygen. Her exam has improved. Hgb remains low but stable, and she was initiated back on therapeutic anticoagulation. The patient herself has no complaints again this morning and feels improved. She was also seen by Palliative medicine, with resultant code status change to DNR/DNI. Plans are for repeat meeting later today. No overnight events reported. She remains afebrile. Exam Narrative Exam Narrative: General: Patient appears comfortable, AAOX3 at time of exam, NAD Neck: Supple CV: Regular, nontachycardic, S1S2, No rubs, murmurs, or gallops. Pulmonary: bibasilar crackles appear improved, L > R, otherwise without rhonchi or wheezing Abdomen: + Bowel Sounds, soft, nontender, nondistended Vascular: Mild B/l lower extremity edema, improved Psych: Normal mood and affect. Objective Objective Clinical Data: Abnormal lab results 12/22/18 12/25/18 12/26/18 Range/Units 20:11 14:11 06:55 WBC (4.4-10.8) k/cumm RBC (4.00-5.20) m/cumm Hgb 8.1 L (12.0-15.5) g/dL Hct 27.6 L (36.0-46.0) % MCH (27.0-33.0) pg MCHC (32.0-36.0) g/dL RDW (11.7-14.6) % Absolute Lymphocytes (1.2-3.4) k/cumm Carbon Dioxide 38.0 H (21.0-32.0) mmol/L Creatinine 0.50 L (0.55-1.02) mg/dL Calcium 8.2 L (8.5-10.1) mg/dL Magnesium 1.6 L (1.8-2.4) mg/dL Crossmatch See Detail 12/26/18 Range/Units 06:55 WBC 3.35 L (4.4-10.8) k/cumm RBC 3.00 L (4.00-5.20) m/cumm Hgb 7.9 L (12.0-15.5) g/dL Hct 27.5 L (36.0-46.0) % MCH 26.3 L (27.0-33.0) pg MCHC 28.7 L (32.0-36.0) g/dL RDW 18.3 H (11.7-14.6) % Absolute Lymphocytes 0.69 L (1.2-3.4) k/cumm Carbon Dioxide (21.0-32.0) mmol/L Creatinine (0.55-1.02) mg/dL Calcium (8.5-10.1) mg/dL Magnesium (1.8-2.4) mg/dL Crossmatch Vital Signs Temperature 37 C 12/26/18 03:00 Temperature Source Temporal Artery Scan 12/26/18 03:00 Pulse 81 12/26/18 10:01 Pulse Rhythm Regular 12/24/18 08:00 Pulse 84 12/26/18 10:01 Respiratory Rate 25 H 12/26/18 10:01 Respiratory Effort Non-Labored 12/26/18 03:00 Respiratory Depth Normal 12/26/18 03:00 Respiratory Pattern Normal 12/26/18 03:00 Blood Pressure 105/59 L 12/26/18 10:01 Blood Pressure Mean 70 12/26/18 10:01 Blood Pressure Position Supine 12/24/18 16:00 Pulse Oximetry 97 12/26/18 10:01 Respiratory End-tidal CO2 31 12/23/18 17:55 Oxygen Delivery Method Nasal Cannula 12/26/18 09:30 Oxygen Flow Rate 1 12/26/18 09:30 Pain Level 0 12/26/18 03:00 Comment 12/23/18 19:37 Intake & Output 12/25/18 12/25/18 12/26/18 11:59 23:59 11:59 Intake Total 254.333 / 6967.196 8055 / 1664.333 391.084 / 391.084 Output Total 2080 / 4185 2105 / 4185 910 / 910 Balance -1825.667 / -2520.667 -695 / -2520.667 -518.916 / -518.916 Weight 86.7 kg 84 kg Intake: IV 4.333 / 114.333 110 / 114.333 101.084 / 101.084 Oral 250 / 1550 1300 / 1550 290 / 290 Output: Urine 2080 / 4185 2105 / 4185 910 / 910 Other: Urine Color Pale Pale Pale Yellow Urine Appearance Clear Clear Clear Comment Indwelling dhaliwal catheter in place. Pt has dhaliwal in place with urometer present, draining clear yellow urine. Incontinent of large amount of urine; reassessed balloon Stool Size Moderate Stool Characteristics Mucoid Laboratory Results WBC 3.35 k/cumm (4.4-10.8) L 12/26/18 06:55 RBC 3.00 m/cumm (4.00-5.20) L 12/26/18 06:55 Hgb 7.9 g/dL (12.0-15.5) L 12/26/18 06:55 Hct 27.5 % (36.0-46.0) L 12/26/18 06:55 MCV 91.7 fL (80-95) 12/26/18 06:55 MCH 26.3 pg (27.0-33.0) L 12/26/18 06:55 MCHC 28.7 g/dL (32.0-36.0) L 12/26/18 06:55 RDW 18.3 % (11.7-14.6) H 12/26/18 06:55 Plt Count 233 x1000/uL (130-400) 12/26/18 06:55 MPV 8.4 fL (8.0-11.0) 12/26/18 06:55 Immature Gran % 0.3 12/26/18 06:55 Neutrophils % 56.7 12/26/18 06:55 Lymphocytes % 20.6 12/26/18 06:55 Monocytes % 18.8 12/26/18 06:55 Eosinophils % 3.3 12/26/18 06:55 Basophils % 0.3 12/26/18 06:55 Absolute Neutrophils 1.90 k/cumm (1.2-6.7) 12/26/18 06:55 Absolute Lymphocytes 0.69 k/cumm (1.2-3.4) L 12/26/18 06:55 Absolute Monocytes 0.63 k/cumm (0.11-0.7) 12/26/18 06:55 Absolute Eosinophils 0.11 k/cumm (0.0-0.7) 12/26/18 06:55 Absolute Basophils 0.01 k/cumm (0.0-0.2) 12/26/18 06:55 Differential Comment Diff reviewed 12/23/18 06:25 RBC Morphology See below 12/23/18 06:25 Polychromasia Present 12/23/18 06:25 Hypochromasia 3+ 12/23/18 06:25 Poikilocytosis 2+ 12/23/18 06:25 Anisocytosis 3+ 12/23/18 06:25 Retic Count 2.5 % (0.5-2.4) H 12/23/18 06:25 Haptoglobin 124 mg/dL (32-197) 12/23/18 06:25 PT 10.3 sec (9.3-11.0) 12/26/18 06:55 INR 1.0 (0.9-1.1) 12/26/18 06:55 APTT 25.4 sec (21.0-31.4) 12/23/18 19:37 D-Dimer 560 ng/mlFEU (<500) H 12/22/18 17:15 Sodium 139 mmol/L (136-145) 12/26/18 06:55 Potassium 3.8 mmol/L (3.5-5.1) 12/26/18 06:55 Chloride 98 mmol/L (98-107) 12/26/18 06:55 Carbon Dioxide 38.0 mmol/L (21.0-32.0) H 12/26/18 06:55 Anion Gap 3.0 mmol/L (3-11) 12/26/18 06:55 BUN 12 mg/dL (7-18) 12/26/18 06:55 Creatinine 0.50 mg/dL (0.55-1.02) L 12/26/18 06:55 Estimated GFR/1.73 m2 >= 60.00 (mL/min/1.73m2) 12/26/18 06:55 Glucose 95 mg/dL (70-100) 12/26/18 06:55 Fructosamine 176 mcmol/L (200 - 285) L 12/23/18 06:25 Calcium 8.2 mg/dL (8.5-10.1) L 12/26/18 06:55 Magnesium 1.6 mg/dL (1.8-2.4) L 12/26/18 06:55 Iron 10 ug/dL (50-175) L 12/23/18 07:10 TIBC 193 ug/dL (250-450) L 12/23/18 07:10 Transferrin % Sat 5 % (15-50) L 12/23/18 07:10 Ferritin 12 ng/mL (8-388) 12/23/18 06:25 Total Bilirubin < 0.1 mg/dL (0.2-1.0) L 12/22/18 17:15 AST 12 U/L (15-37) L 12/22/18 17:15 ALT 14 U/L (12-78) 12/22/18 17:15 Alkaline Phosphatase 84 U/L (46-116) 12/22/18 17:15 Lactate Dehydrogenase 134 U/L (81-234) 12/23/18 06:25 Troponin I 0.04 ng/mL (0.00-0.06) 12/24/18 06:41 NT-Pro-B Natriuret Pep 2885 pg/mL (-299) H 12/22/18 17:15 Total Protein 5.8 g/dL (6.4-8.2) L 12/22/18 17:15 Albumin 2.4 g/dL (3.4-5.0) L 12/22/18 17:15 Vitamin B12 976 pg/mL (193-986) 12/23/18 06:25 Folate > 20.0 ng/mL (8.6-20.0) H 12/23/18 06:25 TSH 3.30 uIU/mL (0.358-3.74) 12/22/18 17:15 Patient ABO/Rh A Positive 12/22/18 20:11 Antibody Screen Positive 12/22/18 20:11 Antibody Identification Anti-C 12/22/18 20:11 Antigen Identification Not Applicable 12/22/18 20:11 Crossmatch See Detail 12/22/18 20:11
[2018-12-26] MEDS: MAGNESIUM SULFATE 2 GM/50 ML BAG IVPB (11:36)
[2018-12-26] MEDS: Warfarin 5 MG TAB PO (11:40)
[2018-12-26] MEDS: Normal Saline 500 ML 15 ML IV (14:30)
--- NOTE | 2018-12-26 14:50 | PDOC.CMPRO ---
- If Service Date Differs Date of service: 12/26/18 Time of Service: 14:50 Care Management Progress Note S/O: CM met with Kanchan this morning, she is lying in bed when this inspector automatic typewriter visits. CM contacted Kanchan's caregiver Justine this morning in regards to a Palliative consult. Justine will be at the hospital this afternoon for a [address] Mcnally met with this inspector automatic typewriter after the Palliative consult and stated that Kanchan would like to return home after her hospitalization. Kanchan's weight continues to be up, and it has been reported that she is 10 kg from her dry weight, and remains on a Lasix drip at this time. A: 78 year old female admitted to [facility] 12/22/18 with CHF and Anemia P: Kanchan will return home once medically cleared. Kanchan continues on IV Lasix and is being diuresed at this time. Kanchan to continue to be supported by Palliative care throughout her stay.
--- NOTE | 2018-12-26 14:55 | CMPROGNOTE_ITS ---
- If Service Date Differs Date of service: 12/26/18 Time of Service: 14:50 Care Management Progress Note S/O: CM met with Kanchan this morning, she is lying in bed when this sign writer hand visits. CM contacted Kanchan's caregiver Justine this morning in regards to a Palliative consult. Justine will be at the hospital this afternoon for a [address] Mcnally met with this sign writer hand after the Palliative consult and stated that Kanchan would like to return home after her hospitalization. Kanchan's weight continues to be up, and it has been reported that she is 10 kg from her dry weight, and remains on a Lasix drip at this time. A: 78 year old female admitted to [facility] 12/22/18 with CHF and Anemia P: Kanchan will return home once medically cleared. Kanchan continues on IV Lasix and is being diuresed at this time. Kanchan to continue to be supported by Palliative care throughout her stay.
--- NOTE | 2018-12-26 15:27 | PT.INTREAT ---
Date of service: 12/26/18 Time of Service: 15:27 PT Notes Inpatient Physical Therapy Treatment Note [facility] Date: 12/26/2018 PRECAUTIONS: Fall SUBJECTIVE: [place] is agreeable to participating in PT. OBJECTIVE: PAIN: No complaints of pain BED MOBILITY/TRANSFERS Sit-supine: Mod A with HOB flat Sit-stand: CGA Stand-sit: CGA Chair-bed: CGA GAIT Assistive Device: FWW Weight bearing: Full Assist: CGA Distance: 15' Deviation: Cueing for FWW mechanics, cueing for gait mechanics THEREX: Patient completed a lower extremity strengthening program, in both seated and supine positions, as per flow sheet. Patient requires rest breaks between exercises due to fatigue. ASSESSMENT: Patient was able to tolerate a progression in gait distance with FWW support and cueing for FWW mechanics and gait mechanics. Patient would benefit from continued gait and transfer training as well as strengthening for improved mobility and improved ability to perform daily functional tasks at a more independent level. PLAN: Continue with PTs POC TREATMENT CODE/TIME: 30 minutes; 99635, 14012
[2018-12-26] MEDS: Nystatin POWDER 15 GM JAR TP (19:14)
[2018-12-26] MEDS: Simvastatin 10 MG TAB PO (19:18)
[2018-12-26] MEDS: WARFARIN 5 MG, WARFARIN 2.5 MG 7.5 MG PO (19:18)
[2018-12-26] MEDS: Melatonin 3 MG TAB 6 MG PO (19:19)
--- NOTE | 2018-12-26 20:58 | NUR.NOTE ---
Nursing Note: @ 20:30 patient was transferred from ICU with no complaints or issues. Report was given to this RN by SANCHO Becerril and Vicente enamorado was verified. Patient was orientated to unit and assessed, denies pain or shortness of breath. pt denies any further needs at this time. will continue to monitor.
[2018-12-27] VITALS (7 sets, daily range): BP systolic 114–126; BP diastolic 64–75; PULSE 69–78; RESP 17–19; TEMP 36.5–36.8; O2SAT 85–97
--- NOTE | 2018-12-27 07:21 | PT.INIE ---
Date of service: 12/26/18 Time of Service: 11:48 PT Notes Inpatient Physical Therapy Evaluation Date: 12/26/2018 Referring Doctor: Barron Palafox MD PT Orders: PT CONSULT: Deconditioning Precautions: Fall. Standard. Patient Profile/Admitting Diagnosis: Patient is a 78-year-old female who presented to the ED on 12/22/2018 with chief complaints of 19-pound weight gain, edema, and anemia. previous to this most recent hospitalization, patient was sent to a local SNF to recuperate from another onset CHF from 10/26/2018 through 11/02/2018 but due to lethargy and hypercapnic respiratory failure had to be sent to [facility] on 11/02/2018. On 11/15/2018 while still at [facility], patient was found to have subsegmental pulmonary emboli of the R upper lobe and the basal segment of R lower lobe via chest CT for which anticoagulation was provided. At the ED on 12/22/2018, patient was diagnosed with CHF exacerbation and was admitted to ICU for blood transfusion, IV diuretics, close cardiac monitoring, and medical management. Referral for physical therapy was received to address functional mobility decline, generalized weakness, and impaired activity tolerance. PMHX: Medical History Pericardial effusion without cardiac tamponade (Chronic) H/O carotid atherosclerosis (Chronic) Adenomatous polyp (Chronic) History of meningioma of the brain (Chronic) Seizure disorder (Chronic) Essential hypertension (Chronic) Diabetes type 2, controlled (Chronic) Diastolic heart failure (Chronic ~10/2018) Hypercapnic respiratory failure (Resolved ~10/2018) Adenomatous polyp Diabetes mellitus Hypercholesterolemia Hypertension Murmur Osteopenia Tobacco use Surgical History History of right-sided carotid endarterectomy (Chronic) BTL Colonoscopy - MAC (07/15/17) Endarterectomy, right Extraction of cataract Social History/Home Situation: Patient states that she resides in [place], [place] with long-term family friend Gayla. Per CM notes, patient is on LTC Medicaid CFC; likely an adult family chcf setting; unable to confirm. She reports being mostly independent at baseline with some help with Justine. Kanchan reports she is unable to drive and Justine provides her transportation as well. [place] reports enjoying puzzle books and shares that she has been at [facility] for three weeks and is looking forward to returning home. Current Functional Limitations: Need for assistance with all bed mobility, transfer, and ambulation task performance requiring an assistive ambulatory device Equipment Owned/DME: None Subjective: Patient is agreeable to a PT consult and treatment. She reported being unsteady on the knees and a little lightheaded during standing activity. She states she was at home to be able to go home soon as she is able. Objective: General Observation: Patient seen lying in bed with HOB elevated to 30 degrees. IV in both UE. Oxygen supplementation with 1 L oxygen via nasal cannula. Telemetry monitoring on. Brown catheter in place. Bilateral TEDs to both legs. Thoracic kyphosis with dextroscoliosis. Mental Status: Alert and oriented as to person and place Pain: 0/10 ROM: Right Upper Extremity: Shoulder Flexion WFL. Shoulder abduction WFL. Elbow flexion WFL. Wrist flexion WFL. Functional opening and closing of hand WFL. Left Upper Extremity: Shoulder Flexion WFL. Shoulder abduction WFL. Elbow flexion WFL. Wrist flexion WFL. Functional opening and closing of hand WFL. Right Lower Extremity: Hip flexion achieved up to 20 degrees of hip flexion while seated on chair. Hip abduction WFL. Knee extension -5. Knee flexion WFL. Ankle dorsiflexion WFL. Ankle plantarflexion WFL. Left Lower Extremity: Hip flexion achieved up to 20 degrees of hip flexion while seated on chair. Hip abduction WFL. Knee extension -5. Knee flexion WFL. Ankle dorsiflexion WFL. Ankle plantarflexion WFL. Strength: Right Upper Extremity: Shoulder flexors 4-/5. Shoulder abductors 4-/5. Elbow flexors 4-/5. Elbow extensors 4-/5. Associate Civil Engineer strong. Left Upper Extremity: Shoulder flexors 4-/5. Shoulder abductors 4-/5. Elbow flexors 4-/5. Elbow extensors 4-/5. Associate Civil Engineer strong. Right Lower Extremity: Hip flexors 3-/5. Hip abductors 4-/5. Knee flexors 4-/5. Knee extensors 3-/5. Ankle dorsiflexors 4-/5. Ankle plantarflexors 4-/5. Left Lower Extremity:Hip flexors 3-/5. Hip abductors 4-/5. Knee flexors 4-/5. Knee extensors 3-/5. Ankle dorsiflexors 4-/5. Ankle plantarflexors 4-/5. Bed Mobility/Transfers: Rolling minimal assist with HOB 30 degrees Supine to sit minimal assist HOB 30 degrees Sit to supine minimal assist with FWW Sit to stand minimal assist with FWW Stand to sit minimal assist with FWW Bed to chair minimal assist with FWW Chair to bed minimal assist with FWW Gait: Patient tolerated short distance ambulation of 5 steps forward +1 turn +2 sidesteps and 2 back steps to transfer onto bedside chair using FWW and minimal assist with minimal verbal cueing provided for walker management and safety. Balance: Static Sitting: Good Dynamic Sitting: Fair Static Standing: Fair Dynamic Standing: Fair Special Tests: Mobility Limitations Standardized Measure [facility] AM-PAC 6 clicks Basic Mobility Inpatient Short Form: Raw Score: 16 CMS Score: 54% deficit Informed Consent/Education: Patient instructed in purpose of PT consult and plan of care. Assessment: 78-year-old female with exacerbation of congestive heart failure. Patient presents with clinical signs and symptoms consistent with current/admitting diagnoses that have resulted to mobility limitations, gait instability, generalized weakness, and impairment of motor control as demonstrated by the following impairment level findings: 1. Decreased strength to B LE major muscle groups 2. Impaired sitting/standing balance 3. Impaired activity tolerance 4. Limitation of joint range of motion in [] Impairments are contributing to the following functional limitations: 1. Dependent bed mobility skills 2. Increased dependence with transfers 3. Inability to safely ambulate without assistive device and physical assistance 4. Increase completion time for mobility ADL performance 5. Increased fall risk 6. Inability to negotiate steps alone safely Patient is assessed as a Moderate 85897 complexity based on the following: History: 78-year-old female with 2 bouts of CHF exacerbation in the past 2 months who was previously independent with ambulation activities and lives with family friends Examination: Underlying impairments and functional limitations as noted above Presentation: Evolving Decision Makin moderate complexity Goals: Goals X1 week 1. Supine-Sit independent 2. Sit-Supine independent 3. Sit-Stand independent 4. Stand-Sit independent 5. Bed-Chair independent 6. Chair-Bed independent 7. Independent gait on level surface with use of least restrictive device for at least 100 feet without report of pain nor dyspnea 8. Independent with home exercise program 9. Good static and dynamic standing balance/tolerance Plan of Care/Treatment Plan: 1-2x/day, 7 days/week x 1 week. Plan of care has been reviewed with the MAINSTREAMING FACILITATOR providing the service under Physical Therapy direction. Initiate Physical Therapy intervention for strengthening, bed mobility, transfers, gait, stairs, balance training, use of assistive device. DISCHARGE RECOMMENDATIONS: Patient will benefit from alf facility placement in order to progress mobility level, strength, and balance in preparation for a safe discharge to home. Patient will highly benefit from use of front-wheeled walker in order to increase mobility, increase stability, maximize activity tolerance, and reduce overall fall risk at discharge destination. TREATMENT CODE/TIME: 15646 for 33 minutes beginning at 11:48 AM. Thank you very much for this referral. Janice Gastelum PT, DPT, CLT [facility]
--- NOTE | 2018-12-27 07:24 | IN_ITS ---
Date of service: 12/26/18 Time of Service: 11:48 PT Notes Inpatient Physical Therapy Evaluation Date: 12/26/2018 Referring Doctor: Barron Palafox MD PT Orders: PT CONSULT: Deconditioning Precautions: Fall. Standard. Patient Profile/Admitting Diagnosis: Patient is a 78-year-old female who presented to the ED on 12/22/2018 with chief complaints of 19-pound weight gain, edema, and anemia. previous to this most recent hospitalization, patient was sent to a local SNF to recuperate from another onset CHF from 10/26/2018 through 11/02/2018 but due to lethargy and hypercapnic respiratory failure had to be [place] [facility] [place]. On 11/15/2018 while still at [facility] was found to have subsegmental pulmonary emboli of the R upper lobe and the basal segment of R lower lobe via chest CT for which anticoagulation was provided. At the ED on 12/22/2018, patient was diagnosed with CHF exacerbation and was admitted to ICU for blood transfusion, IV diuretics, close cardiac monitoring, and medical management. Referral for physical therapy was received to address functional mobility decline, generalized weakness, and impaired activity tolerance. PMHX: Medical History Pericardial effusion without cardiac tamponade (Chronic) H/O carotid atherosclerosis (Chronic) Adenomatous polyp (Chronic) History of meningioma of the brain (Chronic) Seizure disorder (Chronic) Essential hypertension (Chronic) Diabetes type 2, controlled (Chronic) Diastolic heart failure (Chronic ~10/2018) Hypercapnic respiratory failure (Resolved ~10/2018) Adenomatous polyp Diabetes mellitus Hypercholesterolemia Hypertension Murmur Osteopenia Tobacco use Surgical History History of right-sided carotid endarterectomy (Chronic) BTL Colonoscopy - MAC (07/15/17) Endarterectomy, right Extraction of cataract Social History/Home Situation: Patient states that she resides in [place], [place] with long-term family friend Gayla. Per CM notes, patient is on LTC Medicaid CFC; likely an adult family detention setting; unable to confirm. She reports being mostly independent at baseline with some help with Justine. Kanchan reports she is unable to drive and Justine provides her transportation as well. Philo reports enjoying puzzle books and shares that she has been at [facility] for three weeks and is looking forward to returning home. Current Functional Limitations: Need for assistance with all bed mobility, transfer, and ambulation task performance requiring an assistive ambulatory device Equipment Owned/DME: None Subjective: Patient is agreeable to a PT consult and treatment. She reported being unsteady on the knees and a little lightheaded during standing activity. She states she was at home to be able to go home soon as she is able. Objective: General Observation: Patient seen lying in bed with HOB elevated to 30 degrees. IV in both UE. Oxygen supplementation with 1 L oxygen via nasal cannula. Telemetry monitoring on. Brown catheter in place. Bilateral TEDs to both legs. Thoracic kyphosis with dextroscoliosis. Mental Status: Alert and oriented as to person and place Pain: 0/10 ROM: Right Upper Extremity: Shoulder Flexion WFL. Shoulder abduction WFL. Elbow flexion WFL. Wrist flexion WFL. Functional opening and closing of hand WFL. Left Upper Extremity: Shoulder Flexion WFL. Shoulder abduction WFL. Elbow flexion WFL. Wrist flexion WFL. Functional opening and closing of hand WFL. Right Lower Extremity: Hip flexion achieved up to 20 degrees of hip flexion while seated on chair. Hip abduction WFL. Knee extension -5. Knee flexion WFL. Ankle dorsiflexion WFL. Ankle plantarflexion WFL. Left Lower Extremity: Hip flexion achieved up to 20 degrees of hip flexion while seated on chair. Hip abduction WFL. Knee extension -5. Knee flexion WFL. Ankle dorsiflexion WFL. Ankle plantarflexion WFL. Strength: Right Upper Extremity: Shoulder flexors 4-/5. Shoulder abductors 4-/5. Elbow flexors 4-/5. Elbow extensors 4-/5. Crew Clerk strong. Left Upper Extremity: Shoulder flexors 4-/5. Shoulder abductors 4-/5. Elbow flexors 4-/5. Elbow extensors 4-/5. Crew Clerk strong. Right Lower Extremity: Hip flexors 3-/5. Hip abductors 4-/5. Knee flexors 4-/5. Knee extensors 3-/5. Ankle dorsiflexors 4-/5. Ankle plantarflexors 4-/5. Left Lower Extremity:Hip flexors 3-/5. Hip abductors 4-/5. Knee flexors 4-/5. Knee extensors 3-/5. Ankle dorsiflexors 4-/5. Ankle plantarflexors 4-/5. Bed Mobility/Transfers: Rolling minimal assist with HOB 30 degrees Supine to sit minimal assist HOB 30 degrees Sit to supine minimal assist with FWW Sit to stand minimal assist with FWW Stand to sit minimal assist with FWW Bed to chair minimal assist with FWW Chair to bed minimal assist with FWW Gait: Patient tolerated short distance ambulation of 5 steps forward +1 turn +2 sidesteps and 2 back steps to transfer onto bedside chair using FWW and minimal assist with minimal verbal cueing provided for walker management and safety. Balance: Static Sitting: Good Dynamic Sitting: Fair Static Standing: Fair Dynamic Standing: Fair Special Tests: Mobility Limitations Standardized Measure [facility] AM-PAC 6 clicks Basic Mobility Inpatient Short Form: Raw Score: 16 CMS Score: 54% deficit Informed Consent/Education: Patient instructed in purpose of PT consult and plan of care. Assessment: 78-year-old female with exacerbation of congestive heart failure. Patient presents with clinical signs and symptoms consistent with current/admitting diagnoses that have resulted to mobility limitations, gait instability, generalized weakness, and impairment of motor control as demonstrated by the following impairment level findings: 1. Decreased strength to B LE major muscle groups 2. Impaired sitting/standing balance 3. Impaired activity tolerance 4. Limitation of joint range of motion in [] Impairments are contributing to the following functional limitations: 1. Dependent bed mobility skills 2. Increased dependence with transfers 3. Inability to safely ambulate without assistive device and physical assistance 4. Increase completion time for mobility ADL performance 5. Increased fall risk 6. Inability to negotiate steps alone safely Patient is assessed as a Moderate 24585 complexity based on the following: History: 78-year-old female with 2 bouts of CHF exacerbation in the past 2 months who was previously independent with ambulation activities and lives with family friends Examination: Underlying impairments and functional limitations as noted above Presentation: Evolving Decision Makin moderate complexity Goals: Goals X1 week 1. Supine-Sit independent 2. Sit-Supine independent 3. Sit-Stand independent 4. Stand-Sit independent 5. Bed-Chair independent 6. Chair-Bed independent 7. Independent gait on level surface with use of least restrictive device for at least 100 feet without report of pain nor dyspnea 8. Independent with home exercise program 9. Good static and dynamic standing balance/tolerance Plan of Care/Treatment Plan: 1-2x/day, 7 days/week x 1 week. Plan of care has been reviewed with the PHYSICIAN INTENSIVIST providing the service under Physical Therapy direction. Initiate Physical Therapy intervention for strengthening, bed mobility, transfers, gait, stairs, balance training, use of assistive device. DISCHARGE RECOMMENDATIONS: Patient will benefit from care home facility placement in order to progress mobility level, strength, and balance in preparation for a safe discharge to home. Patient will highly benefit from use of front-wheeled walker in order to increase mobility, increase stability, maximize activity tolerance, and reduce overall fall risk at discharge destination. TREATMENT CODE/TIME: 20875 for 33 minutes beginning at 11:48 AM. Thank you very much for this referral. Janice Gastelum PT, DPT, CLT [facility]
[2018-12-27 07:27] LABS: Absolute Basophil Count 0.01 k/cumm (0.0-0.2); Absolute Eosinophil Count 0.12 k/cumm (0.0-0.7); Absolute Lymphocyte Count 0.79 k/cumm (1.2-3.4); Absolute Monocyte Count 0.64 k/cumm (0.11-0.7); Basophils % 0.3; Eosinophils % 3.7; HGB 8.3 g/dL (12.0-15.5); Lymphocytes % 24.2; Mean Corp. HGB Concentration 28.6 g/dL (32.0-36.0); Mean Corpuscular Hemoglobin 26.4 pg (27.0-33.0); Mean Corpuscular Volume 92.4 fL (80-95); Mean Platelet Volume 8.4 fL (8.0-11.0); Monocytes % 19.6; Neutrophils % 52.2; Platelet Count 246 x1000/uL (130-400); RBC 3.14 m/cumm (4.00-5.20); RBC Distribution Width 18.1 % (11.7-14.6); White Blood Cell Count 3.26 k/cumm (4.4-10.8)
[2018-12-27 07:38] LABS: INR 1.4 (0.9-1.1); Prothrombin Time 13.6 sec (9.3-11.0)
[2018-12-27 07:41] LABS: Anion Gap 3.2 mmol/L (3-11); BUN 11 mg/dL (7-18); CO2 36.8 mmol/L (21.0-32.0); CREATININE 0.51 mg/dL (0.55-1.02); Calcium 8.5 mg/dL (8.5-10.1); Chloride 100 mmol/L (98-107); Glucose 100 mg/dL (70-100); Magnesium 1.7 mg/dL (1.8-2.4); Potassium 3.9 mmol/L (3.5-5.1); Sodium 140 mmol/L (136-145)
[2018-12-27] MEDS: Cyanocobalamin 500 MCG TAB 1000 MCG PO (07:54)
[2018-12-27] MEDS: Potassium Chloride 10 MEQ CAPCR 20 MEQ PO ×2 (07:55→19:34)
[2018-12-27] MEDS: levETIRAcetam 500 MG TAB 1000 MG PO ×2 (07:57→19:31)
[2018-12-27] MEDS: Ferrous Sulfate 325 MG TAB PO (07:57)
[2018-12-27] MEDS: Metoprolol CR 25 MG TABCR 12.5 MG PO (07:58)
[2018-12-27] MEDS: Pantoprazole 40 MG VIAL IVP ×2 (08:00→19:30)
[2018-12-27] MEDS: Normal Saline Flush 10 ML SYR IVP ×4 (08:00→19:32)
[2018-12-27] MEDS: Enoxaparin 100 MG/ML SYR 86 MG SC ×2 (08:02→19:32)
[2018-12-27] MEDS: Folic Acid 1 MG TAB PO (08:04)
[2018-12-27] MEDS: Insulin Aspart 300 UNITS/3 ML PEN SC ×3 (08:38→17:51)
--- NOTE | 2018-12-27 09:55 | NUR.NOTE ---
Nursing Note: Patient had an adult diaper under her and when she got up the diaper was found to be saturated with clear to bright yellow mucous type drainage
[2018-12-27] MEDS: Nystatin POWDER 15 GM JAR TP ×2 (10:40→19:58)
[2018-12-27] MEDS: Acetaminophen 325 MG TAB PO (10:41)
[2018-12-27] MEDS: Magnesium Oxide 400 MG TAB 800 MG PO ×2 (10:42→19:59)
[2018-12-27] MEDS: MAGNESIUM SULFATE 2 GM/50 ML BAG IVPB (10:48)
--- NOTE | 2018-12-27 11:44 | PT.INTREAT ---
Date of service: 12/27/18 Time of Service: 09:30 PT Notes Inpatient Physical Therapy Treatment Note [facility] Date: 12/27/18 SUBJECTIVE: I'd like to sit up and look out the window. OBJECTIVE: [] Supine-sit: CGA Sit-stand: CGA Stand-sit: CGA GAIT Assistive Device: FWW Weight bearing:full Assist:CGA Distance: 15' THEREX: performed a global LE strength and stabilization routine. See flowsheet for details. ASSESSMENT: tolerated session well. Required skilled instruction in proper ex performance and to stay focused. PLAN: continue progressing her strength and endurance, following PT POC> TREATMENT CODE/TIME: 25 min. tpx1, TAx1.
--- NOTE | 2018-12-27 15:17 | W.PM.PROGNOT ---
Date of Service Date of service: 12/27/18 Time of Service: 15:17 Assessment and Plan (1) Anemia: Current visit: Yes Status: Chronic Heme + in setting of anticoagulation, with evidence of iron deficiency, s/p 2 units of pRBC's and 1 unit of FFP as well as IV iron. Per EGD, has Esophagitis only without active bleeding. No more active bleeding is observed. H/H is actually improving. Will continue BID PPI. Continue PO iron, add vitamin C. Benefits of anticoagulation with Coumadin outweigh risks at this time - continue coumadin with lovenox bridge (2) Pulmonary embolism: Current visit: Yes Status: Chronic Prior to this admission, Evidence of recent PEs, with fairly significant clot burden, pulmonary hypertension, RV Strain by imaging at [facility], and Exudative pleural effusion and pericardial effusion that may have been related - was initiated on Coumadin, initially held and reversed in setting of acute GIB. Bleed did not appear to be brisk, and is likely from an Upper GI Source. Continue coumadin/lovenox bridge. No change in coumadin dose today (INR went up to 1.4 from 1.0). Continue to monitor H/H and INR. Unfortunately Apixaban is contraindicated due to patient's current antiepileptic (Phenytoin). (3) Acute on chronic diastolic CHF (congestive heart failure): Current visit: Yes Status: Acute Continue lasix gtt, and monitor renal function, I/O's, and daily weights. Continue BB therapy. ECHO obtained 12/23 - shows normal LVEF, evidence of high ventricular filling pressures, and normal RV function. The patient did have mild , mod TR, and PHTN with PAP >55 mmHg. (4) Seizure disorder: Current visit: No Status: Chronic Currently on Keppra and Dilantin. (5) Diabetes type 2, controlled: Current visit: No Status: Chronic Continue to hold Metformin, and monitor on sliding scale. (6) DVT prophylaxis: Current visit: Yes Status: Acute d/c SCD's. Continue therapeutic Enoxaparin and Coumadin. Monitoring daily INR. (7) Advance directive on file: Current visit: No Status: Acute Per discussion with Palliative medicine, patient will be considered DNR/DNI. We are hopeful to discharge the patient home on Saturday Subjective Interval history since last seen: Ms Garcia states that she feels a lot better today. Her breathing is better and her legs are less swollen. She remains on a lasix gtt. Denies dizziness, chest pain, shortness of breath, nausea, vomiting. Nursing reports seeing yellow mucuousy discharge on the patient's pad - it is unclear what the origin of this discharge is at this time. Exam Narrative Exam Narrative: General: Very pleasant elderly female, sitting comfortably in a chair, initially napping, easily arousable, A&OX3, NAD HEENT: EOMI, MMM Heart: RRR, no m/r/g Lungs: Diminished at B bases; crackles [address] of the lung GI: abdomen is soft, nontender, nondistended Extremities: wearing TEDs, 1+ edema B is palpable through TEDs Objective Objective Clinical Data: Abnormal lab results 12/27/18 12/27/18 12/27/18 Range/Units 06:40 06:40 06:40 WBC 3.26 L (4.4-10.8) k/cumm RBC 3.14 L (4.00-5.20) m/cumm Hgb 8.3 L (12.0-15.5) g/dL Hct 29.0 L (36.0-46.0) % MCH 26.4 L (27.0-33.0) pg MCHC 28.6 L (32.0-36.0) g/dL RDW 18.1 H (11.7-14.6) % Absolute Lymphocytes 0.79 L (1.2-3.4) k/cumm PT 13.6 H (9.3-11.0) sec INR 1.4 H (0.9-1.1) Carbon Dioxide 36.8 H (21.0-32.0) mmol/L Creatinine 0.51 L (0.55-1.02) mg/dL Magnesium 1.7 L (1.8-2.4) mg/dL Vital Signs Temperature 36.7 C 12/27/18 07:22 Temperature Source Tympanic 12/27/18 07:22 Pulse 78 12/27/18 07:22 Pulse Rhythm Regular 12/27/18 08:00 Pulse 72 12/26/18 12:31 Respiratory Rate 19 12/27/18 07:22 Respiratory Effort Non-Labored 12/27/18 08:00 Respiratory Depth Normal 12/27/18 08:00 Respiratory Pattern Normal 12/27/18 08:00 Blood Pressure 126/71 12/27/18 07:22 Blood Pressure Mean 68 12/26/18 13:58 Blood Pressure Position Sitting 12/26/18 12:05 Pulse Oximetry 95 12/27/18 13:30 Respiratory End-tidal CO2 31 12/23/18 17:55 Oxygen Delivery Method Nasal Cannula 12/27/18 13:30 Oxygen Flow Rate 1 12/27/18 13:30 Pain Level 2 12/27/18 11:41 Comment 12/23/18 19:37 Intake & Output 12/26/18 12/27/18 12/27/18 23:59 11:59 23:59 Intake Total 1009.708 / 1800.792 720 / 840 120 / 840 Output Total 1640 / 2900 2150 / 2275 125 / 2275 Balance -630.292 / -1099.208 -1430 / -1435 -5 / -1435 Weight 78.3 kg Intake: IV 169.708 / 270.792 10 / 10 Oral 840 / 1530 710 / 830 120 / 830 Output: Urine 1640 / 2900 2150 / 2275 125 / 2275 Other: Urine Color Pale Pale Pale Yellow Yellow Yellow Urine Appearance Clear Clear Clear Comment Pt has dhaliwal in place with urometer present, draining clear pale urine. Laboratory Results WBC 3.26 k/cumm (4.4-10.8) L 12/27/18 06:40 RBC 3.14 m/cumm (4.00-5.20) L 12/27/18 06:40 Hgb 8.3 g/dL (12.0-15.5) L 12/27/18 06:40 Hct 29.0 % (36.0-46.0) L 12/27/18 06:40 MCV 92.4 fL (80-95) 12/27/18 06:40 MCH 26.4 pg (27.0-33.0) L 12/27/18 06:40 MCHC 28.6 g/dL (32.0-36.0) L 12/27/18 06:40 RDW 18.1 % (11.7-14.6) H 12/27/18 06:40 Plt Count 246 x1000/uL (130-400) 12/27/18 06:40 MPV 8.4 fL (8.0-11.0) 12/27/18 06:40 Immature Gran % 0.0 12/27/18 06:40 Neutrophils % 52.2 12/27/18 06:40 Lymphocytes % 24.2 12/27/18 06:40 Monocytes % 19.6 12/27/18 06:40 Eosinophils % 3.7 12/27/18 06:40 Basophils % 0.3 12/27/18 06:40 Absolute Neutrophils 1.70 k/cumm (1.2-6.7) 12/27/18 06:40 Absolute Lymphocytes 0.79 k/cumm (1.2-3.4) L 12/27/18 06:40 Absolute Monocytes 0.64 k/cumm (0.11-0.7) 12/27/18 06:40 Absolute Eosinophils 0.12 k/cumm (0.0-0.7) 12/27/18 06:40 Absolute Basophils 0.01 k/cumm (0.0-0.2) 12/27/18 06:40 Differential Comment Diff reviewed 12/23/18 06:25 RBC Morphology See below 12/23/18 06:25 Polychromasia Present 12/23/18 06:25 Hypochromasia 3+ 12/23/18 06:25 Poikilocytosis 2+ 12/23/18 06:25 Anisocytosis 3+ 12/23/18 06:25 Retic Count 2.5 % (0.5-2.4) H 12/23/18 06:25 Haptoglobin 124 mg/dL (32-197) 12/23/18 06:25 PT 13.6 sec (9.3-11.0) H 12/27/18 06:40 INR 1.4 (0.9-1.1) H 12/27/18 06:40 APTT 25.4 sec (21.0-31.4) 12/23/18 19:37 D-Dimer 560 ng/mlFEU (<500) H 12/22/18 17:15 Sodium 140 mmol/L (136-145) 12/27/18 06:40 Potassium 3.9 mmol/L (3.5-5.1) 12/27/18 06:40 Chloride 100 mmol/L (98-107) 12/27/18 06:40 Carbon Dioxide 36.8 mmol/L (21.0-32.0) H 12/27/18 06:40 Anion Gap 3.2 mmol/L (3-11) 12/27/18 06:40 BUN 11 mg/dL (7-18) 12/27/18 06:40 Creatinine 0.51 mg/dL (0.55-1.02) L 12/27/18 06:40 Estimated GFR/1.73 m2 >= 60.00 (mL/min/1.73m2) 12/27/18 06:40 Glucose 100 mg/dL (70-100) 12/27/18 06:40 Fructosamine 176 mcmol/L (200 - 285) L 12/23/18 06:25 Calcium 8.5 mg/dL (8.5-10.1) 12/27/18 06:40 Magnesium 1.7 mg/dL (1.8-2.4) L 12/27/18 06:40 Iron 10 ug/dL (50-175) L 12/23/18 07:10 TIBC 193 ug/dL (250-450) L 12/23/18 07:10 Transferrin % Sat 5 % (15-50) L 12/23/18 07:10 Ferritin 12 ng/mL (8-388) 12/23/18 06:25 Total Bilirubin < 0.1 mg/dL (0.2-1.0) L 12/22/18 17:15 AST 12 U/L (15-37) L 12/22/18 17:15 ALT 14 U/L (12-78) 12/22/18 17:15 Alkaline Phosphatase 84 U/L (46-116) 12/22/18 17:15 Lactate Dehydrogenase 134 U/L (81-234) 12/23/18 06:25 Troponin I 0.04 ng/mL (0.00-0.06) 12/24/18 06:41 NT-Pro-B Natriuret Pep 2885 pg/mL (-299) H 12/22/18 17:15 Total Protein 5.8 g/dL (6.4-8.2) L 12/22/18 17:15 Albumin 2.4 g/dL (3.4-5.0) L 12/22/18 17:15 Vitamin B12 976 pg/mL (193-986) 12/23/18 06:25 Folate > 20.0 ng/mL (8.6-20.0) H 12/23/18 06:25 TSH 3.30 uIU/mL (0.358-3.74) 12/22/18 17:15 Blood Type (Referred) Positive 12/23/18 06:00 Patient ABO/Rh A Positive 12/22/18 20:11 Blood Group (off-site) A 12/23/18 06:00 Antibody Screen Positive 12/22/18 20:11 Antibody Identification Anti-C 12/22/18 20:11 Antibody ID Referred Anti-c 12/23/18 06:00 Antibody ID (Elution) Negative igg 12/23/18 06:00 Antigen Identification Not Applicable 12/22/18 20:11 Direct Antiglob Test * 12/23/18 06:00 Crossmatch See Detail 12/22/18 20:11
--- NOTE | 2018-12-27 17:54 | DI.RAD_ITS ---
SYMPTOMS/DIAGNOSIS: F/U CHF, CONSOLIDATION PORTABLE SEMIERECT CHEST: Comparison is made with [id number]. The heart is again noted to be grossly enlarged. There is a left pleural effusion, unchanged. There is minimal blunting at the right costophrenic angle. There are underlying fibrotic changes. There is an old right humeral fracture. IMPRESSION: Stable cardiomegaly and left pleural effusion.
--- NOTE | 2018-12-27 18:34 | DI.VRAD_ITS ---
EXAM: XR Chest, 1 View EXAM DATE/TIME: 12/27/2018 6:00 PM CLINICAL HISTORY: 78 years old, female; Signs and symptoms; Other: F/u chf/consolidation TECHNIQUE: Imaging protocol: XR of the chest, 1 view. COMPARISON: CR XR PORTABLE CHEST AP 12/24/2018 10:45 AM FINDINGS: Lungs: Bilateral pleural effusions and adjacent atelectasis, left greater than right. Increased interstitial lung markings suggesting edema, infection or fibrotic changes. Pleural space: Unremarkable. No pleural effusion. No pneumothorax. Heart/Mediastinum: Cardiomegaly. Vasculature: Atherosclerosis. Bones/joints: Degenerative changes in the spine. Old trauma to the proximal right humerus with inferior subluxation. Ostial lysis of the distal clavicle. Other findings: Subacromial spurring. IMPRESSION: 1. Stable osseous findings. 2. Stable cardiomegaly. 3. Bilateral pleural effusions with adjacent atelectasis, stable. 4. Atherosclerosis, stable. 5. Degenerative changes in the spine. 6. Increased interstitial lung markings suggesting edema, infection or fibrotic changes. Stable. Dictated and Authenticated by: Arthur Valera MD. Ordering:MELCHOR Young MD
[2018-12-27] MEDS: Polyethylene Glycol 3350 17 GM PACKET PO (18:41)
[2018-12-27] MEDS: Docusate Sodium 100 MG CAP PO (18:41)
[2018-12-27] MEDS: Milk of Magnesia 30 ML CUP PO (18:42)
[2018-12-27] MEDS: WARFARIN 5 MG, WARFARIN 2.5 MG 7.5 MG PO (19:31)
--- NOTE | 2018-12-27 19:48 | PDOC.CMPRO ---
- If Service Date Differs Date of service: 12/27/18 Time of Service: 19:49 Care Management Progress Note S/O: CM met with Kanchan in the room she is sitting up in the recliner. She makes good eye contact and is cheerful. Kanchan plans to return home on Saturday with her caregiver Justine and continued services with palliative care. She continues on Lasix, and daily weights. Weight was down 6 kg this morning. A: 78 year old female admitted to [facility] 12/22/18 with CHF and Anemia P: Kanchan will return home once medically cleared. Kanchan continues on IV Lasix and fluid balance continues to be monitored. Kanchan will be transported home via private car at time of discharge.
--- NOTE | 2018-12-27 19:53 | CMPROGNOTE_ITS ---
- If Service Date Differs Date of service: 12/27/18 Time of Service: 19:49 Care Management Progress Note S/O: CM met with Kanchan in the room she is sitting up in the recliner. She makes good eye contact and is cheerful. Kanchan plans to return home on Saturday with her caregiver Justine and continued services with palliative care. She continues on Lasix, and daily weights. Weight was down 6 kg this morning. A: 78 year old female admitted to [facility] 12/22/18 with CHF and Anemia P: Kanchan will return home once medically cleared. Kanchan continues on IV Lasix and fluid balance continues to be monitored. Kanchan will be transported home via private car at time of discharge.
[2018-12-27] MEDS: Melatonin 3 MG TAB 6 MG PO (19:59)
[2018-12-27] MEDS: Simvastatin 10 MG TAB PO (19:59)
[2018-12-28] VITALS (11 sets, daily range): BP systolic 96–139; BP diastolic 42–72; PULSE 65–84; RESP 16–26; TEMP 36.2–36.9; O2SAT 85–98
[2018-12-28 07:30] LABS: HCT 30.2 % (36.0-46.0); HGB 8.7 g/dL (12.0-15.5); Mean Corp. HGB Concentration 28.8 g/dL (32.0-36.0); Mean Corpuscular Hemoglobin 26.7 pg (27.0-33.0); Mean Corpuscular Volume 92.6 fL (80-95); Mean Platelet Volume 8.2 fL (8.0-11.0); Platelet Count 257 x1000/uL (130-400); RBC 3.26 m/cumm (4.00-5.20); RBC Distribution Width 18.2 % (11.7-14.6); White Blood Cell Count 3.66 k/cumm (4.4-10.8)
[2018-12-28 07:43] LABS: INR 1.7 (0.9-1.1); Prothrombin Time 16.8 sec (9.3-11.0)
[2018-12-28 07:44] LABS: Anion Gap 2.4 mmol/L (3-11); BUN 12 mg/dL (7-18); CO2 35.6 mmol/L (21.0-32.0); CREATININE 0.56 mg/dL (0.55-1.02); Calcium 8.5 mg/dL (8.5-10.1); Chloride 100 mmol/L (98-107); Glucose 113 mg/dL (70-100); Magnesium 2.1 mg/dL (1.8-2.4); Potassium 4.1 mmol/L (3.5-5.1); Sodium 138 mmol/L (136-145)
[2018-12-28 08:00] LABS: Absolute Basophil Count 0.04 k/cumm (0.0-0.2); Absolute Eosinophil Count 0.15 k/cumm (0.0-0.7); Absolute Lymphocyte Count 0.81 k/cumm (1.2-3.4); Absolute Monocyte Count 0.33 k/cumm (0.11-0.7); Absolute Neutrophil Count 2.34 k/cumm (1.2-6.7); Atypical Lymphocytes % 1; Diff Comment Manual Differential; Hypochromasia 3+
[2018-12-28] MEDS: Insulin Aspart 300 UNITS/3 ML PEN SC ×3 (08:29→17:38)
[2018-12-28] MEDS: Pantoprazole 40 MG VIAL IVP ×2 (09:14→19:53)
[2018-12-28] MEDS: Normal Saline Flush 10 ML SYR IVP ×3 (09:14→19:53)
[2018-12-28] MEDS: Folic Acid 1 MG TAB PO (09:18)
[2018-12-28] MEDS: levETIRAcetam 500 MG TAB 1000 MG PO ×2 (09:19→19:54)
[2018-12-28] MEDS: Potassium Chloride 10 MEQ CAPCR 20 MEQ PO ×2 (09:19→19:55)
[2018-12-28] MEDS: Cyanocobalamin 500 MCG TAB 1000 MCG PO (09:20)
[2018-12-28] MEDS: Ferrous Sulfate 325 MG TAB PO (09:20)
[2018-12-28] MEDS: Ascorbic Acid 500 MG TAB PO (09:20)
[2018-12-28] MEDS: Metoprolol CR 25 MG TABCR 12.5 MG PO (09:21)
[2018-12-28] MEDS: Enoxaparin 100 MG/ML SYR 86 MG SC ×2 (09:22→19:53)
[2018-12-28] MEDS: Nystatin POWDER 15 GM JAR TP ×2 (10:33→19:53)
[2018-12-28] MEDS: Magnesium Oxide 400 MG TAB 800 MG PO ×2 (11:10→21:35)
--- NOTE | 2018-12-28 11:28 | PT.INTREAT ---
Date of service: 12/28/18 Time of Service: 10:40 PT Notes Inpatient Physical Therapy Treatment Note [facility] Date: 12/28/18 SUBJECTIVE: pt very quiet this am. She does not engage in much of a conversation, but will nod or shake her head to answer yes/no questions. OBJECTIVE: [] PAIN: denies BED MOBILITY/TRANSFERS Sit-stand: CGA Stand-sit: CGA GAIT Assistive Device: FWW Weight bearing: full Assist: CGA Distance: 15'x2 Deviation: pursed lip breathing techniques and energy conservation. VITALS: O2 sats and HR monitored t/o session with RT. Pt on both RA and 2L of O2. THEREX: performed her global LE strength and stabilization ex. See flowsheet for details. ASSESSMENT: tolerated session well. She did not seem as motivated as she was yesterday, but still willing and able to do everything asked of her. C/o fatigue in legs during ambulation, but better post rest break. PLAN: will continue to progress her strength and conditioning following PT POC. Anticipate d/c tomorrow per pt. TREATMENT CODE/TIME: 25 min. TPx1, TAx1.
--- NOTE | 2018-12-28 14:44 | PDOC.CMPRO ---
- If Service Date Differs Date of service: 12/28/18 Time of Service: 14:44 Care Management Progress Note S/O: CM met with Kanchan in the room she is sitting up in the recliner. She makes good eye contact and is cheerful. Kanchan plans to return home on Saturday with her caregiver Justine and continued services with palliative care. She will have an ambulatory pule ox she may need home oxygen at time of discharge and ongoing diuretics. A: 78 year old female admitted to [facility] 12/22/18 with CHF and Anemia P: Kanchan will return home once medically cleared. Kanchan continues on IV Lasix and fluid balance continues to be monitored. Kanchan will be transported home via private car at time of discharge.
--- NOTE | 2018-12-28 14:47 | CMPROGNOTE_ITS ---
- If Service Date Differs Date of service: 12/28/18 Time of Service: 14:44 Care Management Progress Note S/O: CM met with Kanchan in the room she is sitting up in the recliner. She makes good eye contact and is cheerful. Kanchan plans to return home on Saturday with her caregiver Justine and continued services with palliative care. She will have an ambulatory pule ox she may need home oxygen at time of discharge and ongoing diuretics. A: 78 year old female admitted to [facility] 12/22/18 with CHF and Anemia P: Kanchan will return home once medically cleared. Kanchan continues on IV Lasix and fluid balance continues to be monitored. Kanchan will be transported home via private car at time of discharge.
--- NOTE | 2018-12-28 15:09 | W.PM.PROGNOT ---
Date of Service Date of service: 12/28/18 Time of Service: 15:09 Assessment and Plan (1) Anemia: Current visit: Yes Status: Chronic Heme + in setting of anticoagulation, with evidence of iron deficiency, s/p 2 units of pRBC's and 1 unit of FFP as well as IV iron. Per EGD, has Esophagitis only without active bleeding. No more active bleeding is observed. H/H is actually improving. Repeat hemoccult is negative. Will continue BID PPI. Continue PO iron, vitamin C. Benefits of anticoagulation with Coumadin outweigh risks at this time - continue coumadin with lovenox bridge (2) Pulmonary embolism: Current visit: Yes Status: Chronic Prior to this admission, Evidence of recent PEs, with significant clot burden, pulmonary hypertension, RV Strain by imaging at [facility], and Exudative pleural effusion and pericardial effusion that may have been related - was initiated on Coumadin, initially held and reversed in setting of acute GIB. Bleed did not appear to be brisk, and is likely from an Upper GI Source. Continue coumadin/lovenox bridge. No change in coumadin dose today (INR went up to 1.4 from 1.0). Continue to monitor H/H and INR. Unfortunately Apixaban is contraindicated due to patient's current antiepileptic (Phenytoin). (3) Acute on chronic diastolic CHF (congestive heart failure): Current visit: Yes Status: Acute D/c lasix gtt. Transition to PO lasix. Monitor renal function, I/O's, and daily weights. Continue BB therapy. ECHO obtained 12/23 - shows normal LVEF, evidence of high ventricular filling pressures, and normal RV function. The patient did have mild , mod TR, and PHTN with PAP >55 mmHg. (4) Seizure disorder: Current visit: No Status: Chronic Currently on Keppra and Dilantin. (5) Diabetes type 2, controlled: Current visit: No Status: Chronic Continue to hold Metformin, and monitor on sliding scale. (6) DVT prophylaxis: Current visit: Yes Status: Acute Continue therapeutic Enoxaparin and Coumadin. Monitoring daily INR. (7) Advance directive on file: Current visit: No Status: Acute Per discussion with Palliative medicine, patient will be considered DNR/DNI. We are hopeful to discharge the patient home tomorrow Subjective Interval history since last seen: Ms Garcia states she is feeling better today - both her breathing and her legs are better. She denies dizziness, chest pain, nausea, abdominal pain. She thinks she will be ready to go home tomorrow. Last BM is hemoccult negative. Exam Narrative Exam Narrative: General: Very pleasant elderly female, sitting comfortably in a chair, A&OX3, NAD HEENT: EOMI, MMM Heart: RRR, no m/r/g Lungs: Diminished at B bases; I did not appreciate crackles today GI: abdomen is soft, nontender, nondistended Extremities: wearing TEDs, 1+ edema B is palpable through TEDs, appears better Objective Objective Clinical Data: Abnormal lab results 12/28/18 12/28/18 12/28/18 Range/Units 07:08 07:08 07:08 WBC 3.66 L (4.4-10.8) k/cumm RBC 3.26 L (4.00-5.20) m/cumm Hgb 8.7 L (12.0-15.5) g/dL Hct 30.2 L (36.0-46.0) % MCH 26.7 L (27.0-33.0) pg MCHC 28.8 L (32.0-36.0) g/dL RDW 18.2 H (11.7-14.6) % Absolute Lymphocytes 0.81 L (1.2-3.4) k/cumm PT 16.8 H (9.3-11.0) sec INR 1.7 H (0.9-1.1) Carbon Dioxide 35.6 H (21.0-32.0) mmol/L Anion Gap 2.4 L (3-11) mmol/L Glucose 113 H (70-100) mg/dL Vital Signs Temperature 36.5 C 12/28/18 11:13 Temperature Source Tympanic 12/28/18 11:13 Pulse 84 12/28/18 11:13 Pulse Rhythm Regular 12/28/18 09:15 Pulse 72 12/26/18 12:31 Respiratory Rate 12/28/18 11:13 Respiratory Effort 12/28/18 09:15 Respiratory Depth Shallow 12/28/18 09:15 Respiratory Pattern Normal 12/28/18 09:15 Blood Pressure 139/42 L 12/28/18 11:13 Blood Pressure Mean 68 12/26/18 13:58 Blood Pressure Position Sitting 12/26/18 12:05 Pulse Oximetry 96 12/28/18 11:13 Respiratory End-tidal CO2 31 12/23/18 17:55 Oxygen Delivery Method Nasal Cannula 12/28/18 11:13 Oxygen Flow Rate 1 12/28/18 11:13 Pain Level 0 12/28/18 04:39 Comment 12/23/18 19:37 Intake & Output 12/27/18 12/28/18 12/28/18 23:59 11:59 23:59 Intake Total 694.417 / 1414.417 550 / 790 240 / 790 Output Total 725 / 2875 2400 / 2900 500 / 2900 Balance -30.583 / -1460.583 -1850 / -2110 -260 / -2110 Weight 74.3 kg Intake: IV 334.417 / 344.417 10 Oral 360 / 1070 540 / 780 240 / 780 Output: Urine 725 / 2875 2400 / 2900 500 / 2900 Other: Urine Color Pale Pale Pale Yellow Yellow Yellow Urine Appearance Clear Clear Clear Stool Occult Blood Negative Stool Size Copious Stool Characteristics Brown Laboratory Results WBC 3.66 k/cumm (4.4-10.8) L 12/28/18 07:08 RBC 3.26 m/cumm (4.00-5.20) L 12/28/18 07:08 Hgb 8.7 g/dL (12.0-15.5) L 12/28/18 07:08 Hct 30.2 % (36.0-46.0) L 12/28/18 07:08 MCV 92.6 fL (80-95) 12/28/18 07:08 MCH 26.7 pg (27.0-33.0) L 12/28/18 07:08 MCHC 28.8 g/dL (32.0-36.0) L 12/28/18 07:08 RDW 18.2 % (11.7-14.6) H 12/28/18 07:08 Plt Count 257 x1000/uL (130-400) 12/28/18 07:08 MPV 8.2 fL (8.0-11.0) 12/28/18 07:08 Immature Gran % See Differential 12/28/18 07:08 Neutrophils % 64.0 12/28/18 07:08 Lymphocytes % 21.0 12/28/18 07:08 Atypical Lymphs % 1 12/28/18 07:08 Monocytes % 9.0 12/28/18 07:08 Eosinophils % 4.0 12/28/18 07:08 Basophils % 1.0 12/28/18 07:08 Absolute Neutrophils 2.34 k/cumm (1.2-6.7) 12/28/18 07:08 Absolute Lymphocytes 0.81 k/cumm (1.2-3.4) L 12/28/18 07:08 Absolute Monocytes 0.33 k/cumm (0.11-0.7) 12/28/18 07:08 Absolute Eosinophils 0.15 k/cumm (0.0-0.7) 12/28/18 07:08 Absolute Basophils 0.04 k/cumm (0.0-0.2) 12/28/18 07:08 Differential Comment Manual differential 12/28/18 07:08 RBC Morphology See below 12/28/18 07:08 Polychromasia Present 12/23/18 06:25 Hypochromasia 3+ 12/28/18 07:08 Poikilocytosis 2+ 12/23/18 06:25 Anisocytosis 3+ 12/23/18 06:25 Retic Count 2.5 % (0.5-2.4) H 12/23/18 06:25 Haptoglobin 124 mg/dL (32-197) 12/23/18 06:25 PT 16.8 sec (9.3-11.0) H 12/28/18 07:08 INR 1.7 (0.9-1.1) H 12/28/18 07:08 APTT 25.4 sec (21.0-31.4) 12/23/18 19:37 D-Dimer 560 ng/mlFEU (<500) H 12/22/18 17:15 Sodium 138 mmol/L (136-145) 12/28/18 07:08 Potassium 4.1 mmol/L (3.5-5.1) 12/28/18 07:08 Chloride 100 mmol/L (98-107) 12/28/18 07:08 Carbon Dioxide 35.6 mmol/L (21.0-32.0) H 12/28/18 07:08 Anion Gap 2.4 mmol/L (3-11) L 12/28/18 07:08 BUN 12 mg/dL (7-18) 12/28/18 07:08 Creatinine 0.56 mg/dL (0.55-1.02) 12/28/18 07:08 Estimated GFR/1.73 m2 >= 60.00 (mL/min/1.73m2) 12/28/18 07:08 Glucose 113 mg/dL (70-100) H 12/28/18 07:08 Fructosamine 176 mcmol/L (200 - 285) L 12/23/18 06:25 Calcium 8.5 mg/dL (8.5-10.1) 12/28/18 07:08 Magnesium 2.1 mg/dL (1.8-2.4) 12/28/18 07:08 Iron 10 ug/dL (50-175) L 12/23/18 07:10 TIBC 193 ug/dL (250-450) L 12/23/18 07:10 Transferrin % Sat 5 % (15-50) L 12/23/18 07:10 Ferritin 12 ng/mL (8-388) 12/23/18 06:25 Total Bilirubin < 0.1 mg/dL (0.2-1.0) L 12/22/18 17:15 AST 12 U/L (15-37) L 12/22/18 17:15 ALT 14 U/L (12-78) 12/22/18 17:15 Alkaline Phosphatase 84 U/L (46-116) 12/22/18 17:15 Lactate Dehydrogenase 134 U/L (81-234) 12/23/18 06:25 Troponin I 0.04 ng/mL (0.00-0.06) 12/24/18 06:41 NT-Pro-B Natriuret Pep 2885 pg/mL (-299) H 12/22/18 17:15 Total Protein 5.8 g/dL (6.4-8.2) L 12/22/18 17:15 Albumin 2.4 g/dL (3.4-5.0) L 12/22/18 17:15 Vitamin B12 976 pg/mL (193-986) 12/23/18 06:25 Folate > 20.0 ng/mL (8.6-20.0) H 12/23/18 06:25 TSH 3.30 uIU/mL (0.358-3.74) 12/22/18 17:15 Blood Type (Referred) Positive 12/23/18 06:00 Patient ABO/Rh A Positive 12/22/18 20:11 Blood Group (off-site) A 12/23/18 06:00 Antibody Screen Positive 12/22/18 20:11 Antibody Identification Anti-C 12/22/18 20:11 Antibody ID Referred Anti-c 12/23/18 06:00 Antibody ID (Elution) Negative igg 12/23/18 06:00 Antigen Identification Not Applicable 12/22/18 20:11 Direct Antiglob Test * 12/23/18 06:00 Crossmatch See Detail 12/22/18 20:11 CXR 19: 1. Stable osseous findings. 2. Stable cardiomegaly. 3. Bilateral pleural effusions with adjacent atelectasis, stable. 4. Atherosclerosis, stable. 5. Degenerative changes in the spine. 6. Increased interstitial lung markings suggesting edema, infection or fibrotic changes. Stable.
[2018-12-28] MEDS: WARFARIN 5 MG, WARFARIN 2.5 MG 7.5 MG PO (19:55)
[2018-12-28] MEDS: Simvastatin 10 MG TAB PO (21:35)
[2018-12-28] MEDS: Melatonin 3 MG TAB 6 MG PO (21:36)
[2018-12-29 03:40] VITALS: BP 117/71; PULSE 72; RESP 18; TEMP 36.7; O2SAT 99
[2018-12-29 07:03] LABS: HCT 29.6 % (36.0-46.0); HGB 8.4 g/dL (12.0-15.5); Mean Corp. HGB Concentration 28.4 g/dL (32.0-36.0); Mean Corpuscular Hemoglobin 26.5 pg (27.0-33.0); Mean Corpuscular Volume 93.4 fL (80-95); Mean Platelet Volume 8.4 fL (8.0-11.0); Platelet Count 255 x1000/uL (130-400); RBC 3.17 m/cumm (4.00-5.20); RBC Distribution Width 18.6 % (11.7-14.6); White Blood Cell Count 4.06 k/cumm (4.4-10.8)
[2018-12-29 07:27] LABS: INR 1.6 (0.9-1.1); Prothrombin Time 16.5 sec (9.3-11.0)
[2018-12-29 07:28] LABS: Anion Gap 2.8 mmol/L (3-11); BUN 13 mg/dL (7-18); CO2 34.2 mmol/L (21.0-32.0); CREATININE 0.41 mg/dL (0.55-1.02); Calcium 8.6 mg/dL (8.5-10.1); Chloride 102 mmol/L (98-107); Glucose 108 mg/dL (70-100); Potassium 4.4 mmol/L (3.5-5.1); Sodium 139 mmol/L (136-145)
[2018-12-29 07:54] VITALS: BP 100/43; PULSE 75; RESP 18; TEMP 36; O2SAT 92
[2018-12-29 07:56] LABS: Anisocytosis 1+; Hypochromasia 2+; Polychromasia Present
[2018-12-29 08:02] LABS: Absolute Neutrophil Count 2.23 k/cumm (1.2-6.7)
[2018-12-29 08:03] LABS: Absolute Lymphocyte Count 1.42 k/cumm (1.2-3.4)
[2018-12-29 08:07] LABS: Absolute Monocyte Count 0.41 k/cumm (0.11-0.7)
[2018-12-29 08:09] LABS: Diff Comment Manual Differential
[2018-12-29] MEDS: Pantoprazole 40 MG VIAL IVP (08:45)
[2018-12-29] MEDS: Nystatin POWDER 15 GM JAR TP (08:45)
[2018-12-29] MEDS: Enoxaparin 100 MG/ML SYR 86 MG SC (08:45)
[2018-12-29] MEDS: Normal Saline Flush 10 ML SYR IVP (08:45)
[2018-12-29] MEDS: Insulin Aspart 300 UNITS/3 ML PEN SC ×2 (08:46→12:19)
[2018-12-29] MEDS: Ascorbic Acid 500 MG TAB PO (08:47)
[2018-12-29] MEDS: Cyanocobalamin 500 MCG TAB 1000 MCG PO (08:47)
[2018-12-29] MEDS: Furosemide 40 MG TAB PO (08:47)
[2018-12-29] MEDS: levETIRAcetam 500 MG TAB 1000 MG PO (08:47)
[2018-12-29] MEDS: Folic Acid 1 MG TAB PO (08:47)
[2018-12-29] MEDS: Ferrous Sulfate 325 MG TAB PO (08:47)
[2018-12-29] MEDS: Potassium Chloride 10 MEQ CAPCR 20 MEQ PO (08:47)
[2018-12-29] MEDS: Metoprolol CR 25 MG TABCR 12.5 MG PO (08:49)
[2018-12-29] MEDS: Magnesium Oxide 400 MG TAB 800 MG PO (09:54)
[2018-12-29 10:21] VITALS: O2SAT 93
[2018-12-29 10:24] VITALS: PULSE 72; PULSE 74; PULSE 81; RESP 18; RESP 20; O2SAT 91; O2SAT 95; O2SAT 97
[2018-12-29 11:41] VITALS: BP 120/71; PULSE 69; RESP 18; TEMP 36.4; O2SAT 95
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
--- NOTE | 2018-12-29 12:54 | PDOC.HHF2F ---
1. Encounter Date and Reason I certify that SANTOS LAROSE was seen by Hannah Vick on 12/29/18 and that I had a [id number] encounter with this patient that meets the physician face to face encounter requirements. 2. Clinical Findings Supporting Skilled Need and Homebound Status I certify that home health services are medically necessary, include either intermittent usp and/or physical/speech therapy, and that this patient is homebound in that absences from the home require considerable and taxing effort and are infrequent or of short duration, or are attributable to the need to receive medical care. [X] (a) Attached documentation from encounter provides clinical findings supporting skilled need and homebound status (including what assistance patient requires to leave the home). The encounter with the patient was in whole, or in part, for the following medical condition, which is the primary reason for home health care: CHF & ANEMIA Care Home: assess/teach CHF, PE on coumadin/lovenox bridge, INR draws on 12/31/18 and 01/02/19 - results to PCP; CBC w/ diff, BMP, Magnesium 01/05/19. Wound care: cleanse sacral wound with cleanser, pat dry, apply mepilex to sacrum every 3 days and prn Physical Therapy: evaluate and treat Occupational Therapy: evaluate and treat Homebound: Unable to leave home without assistance 3. Certification and Authentication I certify that I composed the above information based on my clinical judgement relating to this patient's medical condition and, if applicable, clinical findings communicated to me by the NPP or inpatient physician who performed the Home Health Referral. All further orders will be obtained through (Community Based Physician - PCP)
--- NOTE | 2018-12-29 12:57 | HHF2F_ITS ---
1. Encounter Date and Reason I certify that SANTOS LAROSE was seen by Hannah Vick on 12/29/18 and that I had a [id number] encounter with this patient that meets the physician face to face encounter requirements. 2. Clinical Findings Supporting Skilled Need and Homebound Status I certify that home health services are medically necessary, include either intermittent fpc and/or physical/speech therapy, and that this patient is homebound in that absences from the home require considerable and taxing effort and are infrequent or of short duration, or are attributable to the need to receive medical care. [X] (a) Attached documentation from encounter provides clinical findings supporting skilled need and homebound status (including what assistance patient requires to leave the home). The encounter with the patient was in whole, or in part, for the following medical condition, which is the primary reason for home health care: CHF & ANEMIA Longterm: assess/teach CHF, PE on coumadin/lovenox bridge, INR draws on 12/31/18 and 01/02/19 - results to PCP; CBC w/ diff, BMP, Magnesium 01/05/19. Wound care: cleanse sacral wound with cleanser, pat dry, apply mepilex to sacrum every 3 days and prn Physical Therapy: evaluate and treat Occupational Therapy: evaluate and treat Homebound: Unable to leave home without assistance 3. Certification and Authentication I certify that I composed the above information based on my clinical judgement relating to this patient's medical condition and, if applicable, clinical findings communicated to me by the NPP or inpatient physician who performed the Home Health Referral. All further orders will be obtained through (Community Based Physician - PCP)
--- NOTE | 2018-12-29 14:45 | CHAPLAIN ---
Clifton was sitting in her chair, dressed and waiting for Justine to pick her up. She thinks around 3 p.m. She's looking forward to getting home, Branden chatterjee she was at [facility] before coming to [facility]. She lives in [place] with Justine and Justine's .
--- NOTE | 2018-12-29 14:50 | PT.INDS ---
Date of service: 12/29/18 PT Notes Inpatient Physical Therapy Discharge Summary Dates: 12/26/2018 Dates of Service: 12/26/2018 through 12/28/2018 This is a clinical summary of care provided on the duration of dates listed above. No charge was made in the completion of this documentation. Referring Doctor: Barron Palafox MD PT Orders: PT CONSULT: Deconditioning Precautions: Fall. Standard. Patient Profile/Admitting Diagnosis: Patient is a 78-year-old female who presented to the ED on 12/22/2018 with chief complaints of 19-pound weight gain, edema, and anemia. previous to this most recent hospitalization, patient was sent to a local SNF to recuperate from another onset CHF from 10/26/2018 through 11/02/2018 but due to lethargy and hypercapnic respiratory failure had to be sent to [facility] on 11/02/2018. On 11/15/2018 while still at [facility], patient was found to have subsegmental pulmonary emboli of the R upper lobe and the basal segment of R lower lobe via chest CT for which anticoagulation was provided. At the ED on 12/22/2018, patient was diagnosed with CHF exacerbation and was admitted to ICU for blood transfusion, IV diuretics, close cardiac monitoring, and medical management. Referral for physical therapy was received to address functional mobility decline, generalized weakness, and impaired activity tolerance. PMHX: Medical History Pericardial effusion without cardiac tamponade (Chronic) H/O carotid atherosclerosis (Chronic) Adenomatous polyp (Chronic) History of meningioma of the brain (Chronic) Seizure disorder (Chronic) Essential hypertension (Chronic) Diabetes type 2, controlled (Chronic) Diastolic heart failure (Chronic ~10/2018) Hypercapnic respiratory failure (Resolved ~10/2018) Adenomatous polyp Diabetes mellitus Hypercholesterolemia Hypertension Murmur Osteopenia Tobacco use Surgical History History of right-sided carotid endarterectomy (Chronic) BTL Colonoscopy - MAC (07/15/17) Endarterectomy, right Extraction of cataract Social History/Home Situation: Patient states that she resides in [place], [place] with long-term family friend Gayla. Per notes, patient is on LTC Medicaid CFC; likely an adult family residential setting; unable to confirm. She reports being mostly independent at baseline with some help with Justine. Kanchan reports she is unable to drive and Justine provides her transportation as well. Kanchan reports enjoying [employer] books and shares that she has been at [facility] for three weeks and is looking forward to returning home. Current Functional Limitations: Need for assistance with all bed mobility, transfer, and ambulation task performance requiring an assistive ambulatory device Equipment Owned/DME: None Subjective: NT Objective: General Observation: NT Mental Status: Alert and oriented as to person and place Pain: NT ROM: Right Upper Extremity: Shoulder Flexion WFL. Shoulder abduction WFL. Elbow flexion WFL. Wrist flexion WFL. Functional opening and closing of hand WFL. Left Upper Extremity: Shoulder Flexion WFL. Shoulder abduction WFL. Elbow flexion WFL. Wrist flexion WFL. Functional opening and closing of hand WFL. Right Lower Extremity: Hip flexion achieved up to 20 degrees of hip flexion while seated on chair. Hip abduction WFL. Knee extension -5. Knee flexion WFL. Ankle dorsiflexion WFL. Ankle plantarflexion WFL. Left Lower Extremity: Hip flexion achieved up to 20 degrees of hip flexion while seated on chair. Hip abduction WFL. Knee extension -5. Knee flexion WFL. Ankle dorsiflexion WFL. Ankle plantarflexion WFL. Strength: Right Upper Extremity: Shoulder flexors 4-/5. Shoulder abductors 4-/5. Elbow flexors 4-/5. Elbow extensors 4-/5. Telemetry Tech strong. Left Upper Extremity: Shoulder flexors 4-/5. Shoulder abductors 4-/5. Elbow flexors 4-/5. Elbow extensors 4-/5. Telemetry Tech strong. Right Lower Extremity: Hip flexors 3-/5. Hip abductors 4-/5. Knee flexors 4-/5. Knee extensors 3-/5. Ankle dorsiflexors 4-/5. Ankle plantarflexors 4-/5. Left Lower Extremity:Hip flexors 3-/5. Hip abductors 4-/5. Knee flexors 4-/5. Knee extensors 3-/5. Ankle dorsiflexors 4-/5. Ankle plantarflexors 4-/5. Bed Mobility/Transfers: Rolling CGA with HOB flat Supine to sit CGA HOB flat Sit to supine CGA with FWW Sit to stand CGA with FWW Stand to sit CGA with FWW Bed to chair CGA with FWW Chair to bed CGA with FWW Gait: Patient tolerated short distance ambulation of 15 steps x 2 using FWW and minimal assist with minimal verbal cueing provided for walker management and safety. Balance: Static Sitting: Good Dynamic Sitting: Fair Static Standing: Fair Dynamic Standing: Fair Assessment: 78-year-old female with exacerbation of congestive heart failure. Patient presents with clinical signs and symptoms consistent with current/admitting diagnoses that have resulted to mobility limitations, gait instability, generalized weakness, and impairment of motor control as demonstrated by the following impairment level findings: 1. Decreased strength to B LE major muscle groups 2. Impaired sitting/standing balance 3. Impaired activity tolerance 4. Limitation of joint range of motion in [] Impairments are contributing to the following functional limitations: 1. Dependent bed mobility skills 2. Increased dependence with transfers 3. Inability to safely ambulate without assistive device and physical assistance 4. Increase completion time for mobility ADL performance 5. Increased fall risk 6. Inability to negotiate steps alone safely Goals: Goals X1 week 1. Supine-Sit independent NOT MET 2. Sit-Supine independent NOT MET 3. Sit-Stand independent NOT MET 4. Stand-Sit independent NOT MET 5. Bed-Chair independent NOT MET 6. Chair-Bed independent NOT MET 7. Independent gait on level surface with use of least restrictive device for at least 100 feet without report of pain nor dyspnea NOT MET 8. Independent with home exercise program NOT MET 9. Good static and dynamic standing balance/tolerance NOT MET DISCHARGE RECOMMENDATIONS: Patient will benefit from home health PT services in order to progress mobility level, strength, and balance in preparation for a safe discharge to home. Patient will highly benefit from use of front-wheeled walker in order to increase mobility, increase stability, maximize activity tolerance, and reduce overall fall risk at discharge destination. TREATMENT CODE/TIME: NC. Thank you very much for this referral. Janice Gastelum PT, DPT, CLT [facility]
--- NOTE | 2018-12-29 14:55 | INDS_ITS ---
Date of service: 12/29/18 PT Notes Inpatient Physical Therapy Discharge Summary Dates: 12/26/2018 Dates of Service: 12/26/2018 through 12/28/2018 This is a clinical summary of care provided on the duration of dates listed above. No charge was made in the completion of this documentation. Referring Doctor: Barron Palafox MD PT Orders: PT CONSULT: Deconditioning Precautions: Fall. Standard. Patient Profile/Admitting Diagnosis: Patient is a 78-year-old female who presented to the ED on 12/22/2018 with chief complaints of 19-pound weight gain, edema, and anemia. previous to this most recent hospitalization, patient was sent to a local SNF to recuperate from another onset CHF from 10/26/2018 through 11/02/2018 but due to lethargy and hypercapnic respiratory failure had to be sent to [facility] on 11/02/2018. On 11/15/2018 while still at [facility], patient was found to have subsegmental pulmonary emboli of the R upper lobe and the basal segment of R lower lobe via chest CT for which anticoagulation was provided. At the ED on 12/22/2018, patient was diagnosed with CHF exacerbation and was admitted to ICU for blood transfusion, IV diuretics, close cardiac monitoring, and medical management. Referral for physical therapy was received to address functional mobility decline, generalized weakness, and impaired activity tolerance. PMHX: Medical History Pericardial effusion without cardiac tamponade (Chronic) H/O carotid atherosclerosis (Chronic) Adenomatous polyp (Chronic) History of meningioma of the brain (Chronic) Seizure disorder (Chronic) Essential hypertension (Chronic) Diabetes type 2, controlled (Chronic) Diastolic heart failure (Chronic ~10/2018) Hypercapnic respiratory failure (Resolved ~10/2018) Adenomatous polyp Diabetes mellitus Hypercholesterolemia Hypertension Murmur Osteopenia Tobacco use Surgical History History of right-sided carotid endarterectomy (Chronic) BTL Colonoscopy - MAC (07/15/17) Endarterectomy, right Extraction of cataract Social History/Home Situation: Patient states that she resides in [place], [place] with long-term family friend Gayla. Per notes, patient is on LTC Medicaid CFC; likely an adult family alf setting; unable to confirm. She reports being mostly independent at baseline with some help with Justine. Kanchan reports she is unable to drive and Justine provides her transportation as well. Kanchan reports enjoying [employer] books and shares that she has been at [facility] for three weeks and is looking forward to returning home. Current Functional Limitations: Need for assistance with all bed mobility, transfer, and ambulation task performance requiring an assistive ambulatory device Equipment Owned/DME: None Subjective: NT Objective: General Observation: NT Mental Status: Alert and oriented as to person and place Pain: NT ROM: Right Upper Extremity: Shoulder Flexion WFL. Shoulder abduction WFL. Elbow flexion WFL. Wrist flexion WFL. Functional opening and closing of hand WFL. Left Upper Extremity: Shoulder Flexion WFL. Shoulder abduction WFL. Elbow flexion WFL. Wrist flexion WFL. Functional opening and closing of hand WFL. Right Lower Extremity: Hip flexion achieved up to 20 degrees of hip flexion while seated on chair. Hip abduction WFL. Knee extension -5. Knee flexion WFL. Ankle dorsiflexion WFL. Ankle plantarflexion WFL. Left Lower Extremity: Hip flexion achieved up to 20 degrees of hip flexion while seated on chair. Hip abduction WFL. Knee extension -5. Knee flexion WFL. Ankle dorsiflexion WFL. Ankle plantarflexion WFL. Strength: Right Upper Extremity: Shoulder flexors 4-/5. Shoulder abductors 4-/5. Elbow flexors 4-/5. Elbow extensors 4-/5. Supply Chain Generalist strong. Left Upper Extremity: Shoulder flexors 4-/5. Shoulder abductors 4-/5. Elbow flexors 4-/5. Elbow extensors 4-/5. Supply Chain Generalist strong. Right Lower Extremity: Hip flexors 3-/5. Hip abductors 4-/5. Knee flexors 4-/5. Knee extensors 3-/5. Ankle dorsiflexors 4-/5. Ankle plantarflexors 4-/5. Left Lower Extremity:Hip flexors 3-/5. Hip abductors 4-/5. Knee flexors 4-/5. Knee extensors 3-/5. Ankle dorsiflexors 4-/5. Ankle plantarflexors 4-/5. Bed Mobility/Transfers: Rolling CGA with HOB flat Supine to sit CGA HOB flat Sit to supine CGA with FWW Sit to stand CGA with FWW Stand to sit CGA with FWW Bed to chair CGA with FWW Chair to bed CGA with FWW Gait: Patient tolerated short distance ambulation of 15 steps x 2 using FWW and minimal assist with minimal verbal cueing provided for walker management and safety. Balance: Static Sitting: Good Dynamic Sitting: Fair Static Standing: Fair Dynamic Standing: Fair Assessment: 78-year-old female with exacerbation of congestive heart failure. Patient presents with clinical signs and symptoms consistent with current/admitting diagnoses that have resulted to mobility limitations, gait instability, generalized weakness, and impairment of motor control as demonstrated by the following impairment level findings: 1. Decreased strength to B LE major muscle groups 2. Impaired sitting/standing balance 3. Impaired activity tolerance 4. Limitation of joint range of motion in [] Impairments are contributing to the following functional limitations: 1. Dependent bed mobility skills 2. Increased dependence with transfers 3. Inability to safely ambulate without assistive device and physical assistance 4. Increase completion time for mobility ADL performance 5. Increased fall risk 6. Inability to negotiate steps alone safely Goals: Goals X1 week 1. Supine-Sit independent NOT MET 2. Sit-Supine independent NOT MET 3. Sit-Stand independent NOT MET 4. Stand-Sit independent NOT MET 5. Bed-Chair independent NOT MET 6. Chair-Bed independent NOT MET 7. Independent gait on level surface with use of least restrictive device for at least 100 feet without report of pain nor dyspnea NOT MET 8. Independent with home exercise program NOT MET 9. Good static and dynamic standing balance/tolerance NOT MET DISCHARGE RECOMMENDATIONS: Patient will benefit from home health PT services in order to progress mobility level, strength, and balance in preparation for a s afe discharge to home. Patient will highly benefit from use of front-wheeled walker in order to increase mobility, increase stability, maximize activity tolerance, and reduce overall fall risk at discharge destination. TREATMENT CODE/TIME: NC. Thank you very much for this referral. Janice Gastelum PT, DPT, CLT [facility]
--- NOTE | 2018-12-29 16:51 | PDOC.CMDIS ---
LACE Index Scoring Tool - Questions: Length of Stay (in days): 7 - 13 Acuity (Admit via E.D.?): Yes Comorbidities: Diabetes w/o Complication, Congestive Heart Failure E.D. Visits: 1 - Answers: Total Score: 12 Risk of Readmission: High Risk Care Management Discharge Reason for Hospitalization: CHF, Anemia Discharge Plan: Kanchan will return home with her caregivers, Justine and Nano to [place], [place] when ready per MD. Her new orders for RN, PT, OT including INR checks (new Lovenox) will be sent to [facility] [place] [facility] [place] F#[phone]; CM provided information to Lillian Hamm/S Funeral Counselor. Kanchan will retrieve her medications ($1.25 for Lovenox as [place]) and transport via private vehicle with Justine. Patient/Family Education Needs: Review of discharge instructions, discuss Ask Me Three, self administered Lovenox injections. Services Needed at Discharge: DME Agency ([facility]), Home Health Care Services (RN, PT, OT, INR, Private Home Provider )
--- NOTE | 2018-12-29 17:04 | CMDISCH_ITS ---
LACE Index Scoring Tool - Questions: Length of Stay (in days): 7 - 13 Acuity (Admit via E.D.?): Yes Comorbidities: Diabetes w/o Complication, Congestive Heart Failure E.D. Visits: 1 - Answers: Total Score: 12 Risk of Readmission: High Risk Care Management Discharge Reason for Hospitalization: CHF, Anemia Discharge Plan: Kanchan will return home with her caregivers, Justine and Nano to [place], [place] when ready per MD. Her new orders for RN, PT, OT including INR checks (new Lovenox) will be sent to [facility] [place] [facility] [place] F#[phone]; CM provided information to Lillian Hamm/S Member Service Representative. Kanchan will retrieve her medications ($1.25 for Lovenox as [place]) and transport via private vehicle with Justine. Patient/Family Education Needs: Review of discharge instructions, discuss Ask Me Three, self administered Lovenox injections. Services Needed at Discharge: DME Agency ([facility]), Home Health Care Services (RN, PT, OT, INR, Private Home Provider )
--- NOTE | 2019-01-11 19:28 | PCPN_ITS ---
Date of service: 12/26/18 Assessment and Plan (1) Generalized weakness: Current visit: No Status: Acute She feels she will have more energy once she is back in her own room at home. She still needs some assistance for walking. She is being transferred to [facility] today and hopefully will get more active once in a bigger space. Explained to Kanchan and her caregivers that she will need weeks, if not months, to regain as much strength as she can. It is possible that she will not be able to regain the strength she has earlier this year. (2) Cor pulmonale: Current visit: No Status: Acute Explained that her heart is weak due to her heart. She needs to have her edema and breathing monitored regularly. She will have services once she returns home, the sooner the better she says. Unclear whether she will go directly home or back to Rehab. She says she doesn't want to go back there.... Was about to be discharged. (3) Pulmonary hypertension: Current visit: No Status: Chronic Chronic. Likely terminal. (4) Goals of care, counseling/discussion: Current visit: No Status: Acute We did fill out a COLST and she signed DNR.DNI, mostly less aggressive response to illness, though she would still want to return to hospital if needed., Kanchan is frustrated in that she was really hoping to go home today, and now it appears she has to wait at least through the weekend. I did explain that another hospitalist was coming on tomorrow and she may have different ideas about when to discharge. In the meantime, I encouraged Kanchan to be as active as possible and do as much for herself as she can. Subjective Patient reports: no new complaints, feels better and shortness of breath Interval history since last seen: I met with Kanchan and her caregivers today. She lives with a couple and their son; their daughters help care for Kanchan, too. One daughter was present. Kanchan again repeated her desire to go home. Family does get paid by state to care for Kanchan. THey don't feel ready to bring her home yet. She has not been home for about [address] Palafox believes she needs a bit more time as an inpatient. Given this, her discharge was postponed to after the weekend. They do support her DNR/DNI status and confirm that she is able to make these decisions on her own. Exam Narrative Exam Narrative: General: Very pleasant elderly female, in the ICU, off some monitors though, A&OX3, in NAD, friends/caregivers present. HEENT: normocephalic, atraumatic, pupils equal and round, EOMI, MMM Neck: Supple, no JVD. Heart: Heart has regular rate and rhythm, soft systolic murmur appreciated. Lungs: respirations even and unlabored, rales to bilateral bases. GI: normoactive bowel sounds, abdomen is soft, nontender on palpation, nondistended Extremities: 1-2+ pitting edema bilaterally, L>R. pedal pulses palpable bilaterally. Objective Objective Clinical Data: Abnormal lab results 12/22/18 12/26/18 12/26/18 Range/Units 20:11 06:55 06:55 WBC 3.35 L (4.4-10.8) k/cumm RBC 3.00 L (4.00-5.20) m/cumm Hgb 7.9 L (12.0-15.5) g/dL Hct 27.5 L (36.0-46.0) % MCH 26.3 L (27.0-33.0) pg MCHC 28.7 L (32.0-36.0) g/dL RDW 18.3 H (11.7-14.6) % Absolute Lymphocytes 0.69 L (1.2-3.4) k/cumm Carbon Dioxide 38.0 H (21.0-32.0) mmol/L Creatinine 0.50 L (0.55-1.02) mg/dL Calcium 8.2 L (8.5-10.1) mg/dL Magnesium 1.6 L (1.8-2.4) mg/dL Crossmatch See Detail Vital Signs Temperature 99.0 F 12/26/18 12:05 Temperature Source Temporal Artery Scan 12/26/18 12:05 Pulse 72 12/26/18 13:58 Pulse Rhythm Regular 12/24/18 08:00 Pulse 72 12/26/18 12:31 Respiratory Rate 22 12/26/18 12:31 Respiratory Effort Non-Labored 12/26/18 12:05 Respiratory Depth Normal 12/26/18 12:05 Respiratory Pattern Normal 12/26/18 12:05 Blood Pressure 126/48 L 12/26/18 13:58 Blood Pressure Mean 68 12/26/18 13:58 Blood Pressure Position Sitting 12/26/18 12:05 Pulse Oximetry 93 L 12/26/18 12:05 Respiratory End-tidal CO2 31 12/23/18 17:55 Oxygen Delivery Method Nasal Cannula 12/26/18 12:05 Oxygen Flow Rate 1 12/26/18 09:30 Pain Level 0 12/26/18 12:05 Comment 12/23/18 19:37 Intake & Output 12/25/18 12/26/18 12/26/18 23:59 11:59 23:59 Intake Total 1410 / 1664.333 791.084 / 1400.792 609.708 / 1400.792 Output Total 2105 / 4185 1260 / 2685 1425 / 2685 Balance -695 / -2520.667 -468.916 / -1284.208 -815.292 / -1284.208 Weight 185 lb 3.013 oz Intake: IV 110 / 114.333 101.084 / 270.792 169.708 / 270.792 Oral 1300 / 1550 690 / 1130 440 / 1130 Output: Urine 2105 / 4185 1260 / 2685 1425 / 2685 Other: Urine Color Pale Pale Yellow Urine Appearance Clear Clear Clear Comment Pt has dhaliwal in place with urometer present, draining clear yellow urine. Incontinent of large amount of urine; reassessed dhaliwal balloon; dhaliwal urometer bag draining pale urine. Pt has dhaliwal in place with urometer present, draining clear pale urine. Stool Size Moderate Stool Characteristics Mucoid Laboratory Results WBC 3.35 k/cumm (4.4-10.8) L 12/26/18 06:55 RBC 3.00 m/cumm (4.00-5.20) L 12/26/18 06:55 Hgb 7.9 g/dL (12.0-15.5) L 12/26/18 06:55 Hct 27.5 % (36.0-46.0) L 12/26/18 06:55 MCV 91.7 fL (80-95) 12/26/18 06:55 MCH 26.3 pg (27.0-33.0) L 12/26/18 06:55 MCHC 28.7 g/dL (32.0-36.0) L 12/26/18 06:55 RDW 18.3 % (11.7-14.6) H 12/26/18 06:55 Plt Count 233 x1000/uL (130-400) 12/26/18 06:55 MPV 8.4 fL (8.0-11.0) 12/26/18 06:55 Immature Gran % 0.3 12/26/18 06:55 Neutrophils % 56.7 12/26/18 06:55 Lymphocytes % 20.6 12/26/18 06:55 Monocytes % 18.8 12/26/18 06:55 Eosinophils % 3.3 12/26/18 06:55 Basophils % 0.3 12/26/18 06:55 Absolute Neutrophils 1.90 k/cumm (1.2-6.7) 12/26/18 06:55 Absolute Lymphocytes 0.69 k/cumm (1.2-3.4) L 12/26/18 06:55 Absolute Monocytes 0.63 k/cumm (0.11-0.7) 12/26/18 06:55 Absolute Eosinophils 0.11 k/cumm (0.0-0.7) 12/26/18 06:55 Absolute Basophils 0.01 k/cumm (0.0-0.2) 12/26/18 06:55 Differential Comment Diff reviewed 12/23/18 06:25 RBC Morphology See below 12/23/18 06:25 Polychromasia Present 12/23/18 06:25 Hypochromasia 3+ 12/23/18 06:25 Poikilocytosis 2+ 12/23/18 06:25 Anisocytosis 3+ 12/23/18 06:25 Retic Count 2.5 % (0.5-2.4) H 12/23/18 06:25 Haptoglobin 124 mg/dL (32-197) 12/23/18 06:25 PT 10.3 sec (9.3-11.0) 12/26/18 06:55 INR 1.0 (0.9-1.1) 12/26/18 06:55 APTT 25.4 sec (21.0-31.4) 12/23/18 19:37 D-Dimer 560 ng/mlFEU (<500) H 12/22/18 17:15 Sodium 139 mmol/L (136-145) 12/26/18 06:55 Potassium 3.8 mmol/L (3.5-5.1) 12/26/18 06:55 Chloride 98 mmol/L (98-107) 12/26/18 06:55 Carbon Dioxide 38.0 mmol/L (21.0-32.0) H 12/26/18 06:55 Anion Gap 3.0 mmol/L (3-11) 12/26/18 06:55 BUN 12 mg/dL (7-18) 12/26/18 06:55 Creatinine 0.50 mg/dL (0.55-1.02) L 12/26/18 06:55 Estimated GFR/1.73 m2 >= 60.00 (mL/min/1.73m2) 12/26/18 06:55 Glucose 95 mg/dL (70-100) 12/26/18 06:55 Fructosamine 176 mcmol/L (200 - 285) L 12/23/18 06:25 Calcium 8.2 mg/dL (8.5-10.1) L 12/26/18 06:55 Magnesium 1.6 mg/dL (1.8-2.4) L 12/26/18 06:55 Iron 10 ug/dL (50-175) L 12/23/18 07:10 TIBC 193 ug/dL (250-450) L 12/23/18 07:10 Transferrin % Sat 5 % (15-50) L 12/23/18 07:10 Ferritin 12 ng/mL (8-388) 12/23/18 06:25 Total Bilirubin < 0.1 mg/dL (0.2-1.0) L 12/22/18 17:15 AST 12 U/L (15-37) L 12/22/18 17:15 ALT 14 U/L (12-78) 12/22/18 17:15 Alkaline Phosphatase 84 U/L (46-116) 12/22/18 17:15 Lactate Dehydrogenase 134 U/L (81-234) 12/23/18 06:25 Troponin I 0.04 ng/mL (0.00-0.06) 12/24/18 06:41 NT-Pro-B Natriuret Pep 2885 pg/mL (-299) H 12/22/18 17:15 Total Protein 5.8 g/dL (6.4-8.2) L 12/22/18 17:15 Albumin 2.4 g/dL (3.4-5.0) L 12/22/18 17:15 Vitamin B12 976 pg/mL (193-986) 12/23/18 06:25 Folate > 20.0 ng/mL (8.6-20.0) H 12/23/18 06:25 TSH 3.30 uIU/mL (0.358-3.74) 12/22/18 17:15 Blood Type (Referred) Positive 12/23/18 06:00 Patient ABO/Rh A Positive 12/22/18 20:11 Blood Group (off-site) A 12/23/18 06:00 Antibody Screen Positive 12/22/18 20:11 Antibody Identification Anti-C 12/22/18 20:11 Antibody ID Referred Anti-c 12/23/18 06:00 Antibody ID (Elution) Negative igg 12/23/18 06:00 Antigen Identification Not Applicable 12/22/18 20:11 Direct Antiglob Test * 12/23/18 06:00 Crossmatch See Detail 12/22/18 20:11
== END 2018-12-29 15:42 | disposition home health service (06) | DRG 377 ==
LOC: ER 20:27 → ICU 20:49 → MS 12-29 12:07 → ICU 01-08 16:27
PROVIDERS: Internal Medicine; Surgery; Admitting Provider Internal Medicine; Emergency Provider Student in an Organized Health Care Education/Training Program; PCP Family Medicine; Visit Provider Internal Medicine
PROC: 0DJ68ZZ Inspection of Stomach, Via Natural or Artificial Opening Endoscopic (ICD-10-PCS; CPT 43235; principal; 2018-12-23 14:30)
DX: K92.2 Gastrointestinal hemorrhage, unspecified (principal); I50.33 Acute on chronic diastolic (congestive) heart failure; L89.153 Pressure ulcer of sacral region, stage 3; I26.09 Other pulmonary embolism with acute cor pulmonale; D62 Acute posthemorrhagic anemia; G40.802 Other epilepsy, not intractable, without status epilepticus; J91.8 Pleural effusion in other conditions classified elsewhere; I08.2 Rheumatic disorders of both aortic and tricuspid valves; D50.0 Iron deficiency anemia secondary to blood loss (chronic); Z86.711 Personal history of pulmonary embolism; Z79.01 Long term (current) use of anticoagulants; K20.9 Esophagitis, unspecified; Z67.30 Type AB blood, Rh positive; E11.9 Type 2 diabetes mellitus without complications; Z79.84 Long term (current) use of oral hypoglycemic drugs; I11.0 Hypertensive heart disease with heart failure; I50.811 Acute right heart failure; E78.5 Hyperlipidemia, unspecified; R09.02 Hypoxemia; Z66 Do not resuscitate; Z51.5 Encounter for palliative care; Z71.3 Dietary counseling and surveillance; F81.9 Developmental disorder of scholastic skills, unspecified; I51.7 Cardiomegaly; Z86.69 Personal history of other diseases of the nervous system and sense organs
CPT/HCPCS: 43235; 36410; 36415; 80048; 80053; 86850; 86900; 86901; 86920; 87081; 93005; 93306; 94618; 97110; 97162; 97530; 99220; 99223; 99232; 99233; 99239; 99253; 99255; 99285; 71045; 71046; 82607; 82728; 82746; 82985; 83010; 83540; 83550; 83615; 83735; 83880; 84443; 84484; 85014; 85018; 85025; 85045; 85379; 85610; 85730; 86860; 86870; 86880; 86885; 86902; 93010; 99284; G0378; J1650; J1756; J1940; J1941; J3475; P9016; P9059

== ENCOUNTER 2018-12-31 14:28 | Observation (INO) | payer MEDICARE, MEDICAID, SELFPAY ==
[2018-12-31] VITALS (7 sets, daily range): BP systolic 109–148; BP diastolic 41–101; PULSE 74–94; RESP 18–20; TEMP 36.7–37.3; O2SAT 92–95
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
--- NOTE | 2018-12-31 14:54 | NUR.NOTE ---
Nursing Note: 395 ml bladder scan. Pt went to the bathroom and also had a BM prior to coming here.
--- NOTE | 2018-12-31 14:56 | PDOC.ERCMPRO ---
Care Management Progress Note 12/31-Dr. Bhatt requested assistance with disposition. Kanchan was discharged from [facility] on 12/29 to home with caregivers. She lives with Justine. Justine and another Caregiver Emmanuelle are here with Kanchan today. Kanchan came to [facility] from [facility] and the plan originally was for her to return to them. Kanchan decided she wanted to go home and not back to rehab. Kanchan is able to make her own decisions. At this time, Justine states she can not take care of her at home. Justine and Emmanuelle both stated that Kanchan is unable to get up and go to the bathroom and has wet herself. Kanchan came to the ED via private vehicle and actually stood from the wheelchair and into the bed. Discussed placement. Kanchan is adamant that she is not returning to health and rehab. According to Marky, Visiting Nurses stated that they called [facility] and was told that [facility] would take her but to bring her to [facility] emergency department. This CM called Care Management at [facility] and spoke with Noris. Noris stated it would be better for her to be here as she has [place] Medicaid. Noris stated she did not receive a phone call about this today and was unaware of this. Noris also stated that before the transfer to [facility] on 11/02, she was assisting Justine with the LTC Medicaid application and that it was never completed as Justine did not return with the financial information. Unsure if [facility] completed LTC application. Patient transferred from [facility] on 11/02 to [facility], discharged from [facility] to [facility] on 11/24. D[address] Dr. Bhatt, if there is no clinical indication for admission, will have to admit in Swingbed Level 1 as caregivers are refusing to go home. Contacted Radha, [facility] [employer] [facility] about bed availability. Updated Marky on admission.
[2018-12-31 15:07] LABS: Abs Immature Grans 0.01 k/cumm (0.0-0.09); Absolute Basophil Count 0.02 k/cumm (0.0-0.2); Absolute Eosinophil Count 0.07 k/cumm (0.0-0.7); Absolute Lymphocyte Count 0.96 k/cumm (1.2-3.4); Absolute Monocyte Count 0.59 k/cumm (0.11-0.7); Basophils % 0.4; Eosinophils % 1.6; HCT 29.6 % (36.0-46.0); HGB 8.8 g/dL (12.0-15.5); Immature Grans % 0.2; Lymphocytes % 21.6; Mean Corp. HGB Concentration 29.7 g/dL (32.0-36.0); Mean Corpuscular Hemoglobin 27.8 pg (27.0-33.0); Mean Corpuscular Volume 93.4 fL (80-95); Mean Platelet Volume 7.9 fL (8.0-11.0); Monocytes % 13.3; Neutrophils % 62.9; Platelet Count 256 x1000/uL (130-400); RBC 3.17 m/cumm (4.00-5.20); RBC Distribution Width 19.2 % (11.7-14.6); White Blood Cell Count 4.45 k/cumm (4.4-10.8)
--- NOTE | 2018-12-31 15:18 | CMPROGNOTE_ITS ---
Care Management Progress Note 12/31-Dr. Bhatt requested assistance with disposition. Kanchan was discharged from [facility] on 12/29 to home with caregivers. She lives with Justine. Justine and another Caregiver Emmanuelle are here with Kanchan today. Kanchan came to [facility] from [facility] and the plan originally was for her to return to them. Kanchan decided she wanted to go home and not back to rehab. Kanchan is able to make her own decisions. At this time, Justine states she can not take care of her at home. Justine and Emmanuelle both stated that Kanchan is unable to get up and go to the bathroom and has wet herself. Kanchan came to the ED via private vehicle and actually stood from the wheelchair and into the bed. Discussed placement. Kanchan is adamant that she is not returning to health and rehab. According to Marky, Visiting Nurses stated that they called [facility] and was told that [facility] would take her but to bring her to [facility] emergency department. This CM called Care Management at [facility] and spoke with Noris. Noris stated it would be better for her to be here as she has [place] Medicaid. Noris stated she did not receive a phone call about this today and was unaware of this. Noris also stated that before the transfer to [facility] on 11/02, she was assisting Justine with the LTC Medicaid application and that it was never completed as Justine did not return with the financial information. Unsure if [facility] completed LTC application. Patient transferred from [facility] on 11/02 to [facility], discharged from [facility] to [facility] on 11/[address]. [address] Bhatt, if there is no clinical indication for admission, will have to admit in Swingbed Level 1 as caregivers are refusing to go home. Contacted Radha, [facility] [employer] [facility] about bed availability. Updated Marky on admission.
[2018-12-31 15:19] LABS: Bilirubin Negative (Negative); Blood Negative (Negative); Clarity Clear; Glucose Negative (Negative); Ketones Negative (Negative); Leukocyte Esterase Small (Negative); Nitrite Negative (Negative); Urobilinogen 0.2 EU/dL (Up TO 0.2); pH 6.5 (5-8)
[2018-12-31 15:21] LABS: ALT 21 U/L (12-78); AST 21 U/L (15-37); Albumin 2.9 g/dL (3.4-5.0); Alkaline Phosphatase 102 U/L (46-116); Anion Gap 7.9 mmol/L (3-11); BUN 15 mg/dL (7-18); Bilirubin, Total 0.2 mg/dL (0.2-1.0); CO2 30.1 mmol/L (21.0-32.0); CREATININE 0.74 mg/dL (0.55-1.02); Calcium 8.4 mg/dL (8.5-10.1); Chloride 100 mmol/L (98-107); Glucose 136 mg/dL (70-100); Magnesium 1.6 mg/dL (1.8-2.4); Potassium 4.3 mmol/L (3.5-5.1); Sodium 138 mmol/L (136-145)
--- NOTE | 2018-12-31 15:21 | NUR.NOTE ---
Nursing Note: straight cath in/out. Urine collected.
[2018-12-31 15:22] LABS: Anisocytosis 1+; INR 1.6 (0.9-1.1); PTT Activated 32.2 sec (21.0-31.4)
[2018-12-31 15:32] LABS: Bacteria Moderate HPF (Negative); Casts Negative LPF (Negative); Crystals Negative HPF (Negative); Epithelial Cells Few HPF (Negative); Mucus Moderate (Negative); Other Cells Negative (Negative); RBC Negative (0-2)
[2018-12-31 15:33] LABS: C & S Indicated? Yes
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
[2018-12-31] MEDS: Enoxaparin 80 MG/0.8 ML SYR 70 MG SC (18:48)
[2018-12-31] MEDS: Warfarin 5 MG TAB 10 MG PO (18:49)
[2018-12-31] MEDS: Nystatin POWDER 15 GM JAR TP (19:45)
[2018-12-31] MEDS: levETIRAcetam 500 MG TAB 1000 MG PO (19:45)
[2018-12-31] MEDS: Pantoprazole 40 MG TABCR PO (19:45)
[2018-12-31] MEDS: Magnesium Oxide 400 MG TAB 800 MG PO (21:23)
[2018-12-31] MEDS: Simvastatin 10 MG TAB PO (21:23)
[2018-12-31] MEDS: Melatonin 3 MG TAB 6 MG PO (21:23)
[2019-01-01] VITALS (11 sets, daily range): BP systolic 102–114; BP diastolic 58–63; PULSE 65–75; RESP 18–24; TEMP 36.7–37.4; O2SAT 83–99
[2019-01-01] MEDS: Enoxaparin 80 MG/0.8 ML SYR 70 MG SC ×2 (06:50→18:01)
[2019-01-01 07:17] LABS: Abs Immature Grans 0.01 k/cumm (0.0-0.09); Absolute Basophil Count 0.01 k/cumm (0.0-0.2); Absolute Eosinophil Count 0.15 k/cumm (0.0-0.7); Absolute Lymphocyte Count 1.23 k/cumm (1.2-3.4); Absolute Monocyte Count 0.57 k/cumm (0.11-0.7); Absolute Neutrophil Count 2.23 k/cumm (1.2-6.7); Basophils % 0.2; Eosinophils % 3.6; HCT 29.2 % (36.0-46.0); HGB 8.3 g/dL (12.0-15.5); Immature Grans % 0.2; Lymphocytes % 29.3; Mean Corp. HGB Concentration 28.4 g/dL (32.0-36.0); Mean Corpuscular Hemoglobin 26.8 pg (27.0-33.0); Mean Corpuscular Volume 94.2 fL (80-95); Mean Platelet Volume 8.6 fL (8.0-11.0); Monocytes % 13.6; Neutrophils % 53.1; Platelet Count 263 x1000/uL (130-400); RBC Distribution Width 19.4 % (11.7-14.6)
[2019-01-01 07:22] LABS: INR 1.7 (0.9-1.1); Prothrombin Time 16.7 sec (9.3-11.0)
[2019-01-01 07:36] LABS: Anion Gap 6.5 mmol/L (3-11); BUN 13 mg/dL (7-18); CO2 31.5 mmol/L (21.0-32.0); CREATININE 0.51 mg/dL (0.55-1.02); Calcium 8.5 mg/dL (8.5-10.1); Chloride 101 mmol/L (98-107); Glucose 109 mg/dL (70-100); Magnesium 1.8 mg/dL (1.8-2.4); Potassium 3.9 mmol/L (3.5-5.1); Sodium 139 mmol/L (136-145)
--- NOTE | 2019-01-01 07:51 | DI.RAD_ITS ---
SYMPTOM/DIAGNOSIS: DESATING, LOW O2 SATS PORTABLE AP CHEST: When compared with the previous examination, increased interstitial markings are noted in the lungs and there are findings consistent with pulmonary vascular redistribution. The heart is enlarged. There is blunting of the left costophrenic angle consistent with a small pleural effusion. CONCLUSION: Increased densities are noted in the lungs in this patient with cardiomegaly and a small left pleural effusion. The findings would be consistent with congestive failure.
[2019-01-01] MEDS: Folic Acid 1 MG TAB PO (07:59)
[2019-01-01] MEDS: Potassium Chloride 10 MEQ CAPCR 20 MEQ PO (08:00)
[2019-01-01] MEDS: levETIRAcetam 500 MG TAB 1000 MG PO ×2 (08:00→19:21)
[2019-01-01] MEDS: Cyanocobalamin 500 MCG TAB 1000 MCG PO (08:00)
[2019-01-01] MEDS: Aspirin E.C. 81 MG TABEC PO (08:01)
[2019-01-01] MEDS: Ascorbic Acid 500 MG TAB PO (08:01)
[2019-01-01] MEDS: Pantoprazole 40 MG TABCR PO ×2 (08:01→19:20)
[2019-01-01] MEDS: Furosemide 40 MG TAB PO (08:01)
[2019-01-01] MEDS: metFORMIN 500 MG TAB 1000 MG PO ×2 (08:02→16:56)
[2019-01-01] MEDS: Metoprolol CR 25 MG TABCR 12.5 MG PO (08:02)
[2019-01-01] MEDS: Ferrous Sulfate 325 MG TAB PO (08:02)
[2019-01-01] MEDS: Nystatin POWDER 15 GM JAR TP ×3 (08:04→19:15)
[2019-01-01 08:57] LABS: NT-proBNP 2600 pg/mL
[2019-01-01] MEDS: Furosemide 40 MG/4 ML VIAL IVP ×2 (10:21→16:56)
[2019-01-01] MEDS: Magnesium Oxide 400 MG TAB 800 MG PO ×2 (10:21→20:20)
[2019-01-01] MEDS: Normal Saline Flush 10 ML SYR IVP ×2 (10:22→16:56)
--- NOTE | 2019-01-01 11:28 | PT.INIE ---
Date of service: 01/01/19 Time of Service: 11:28 PT Notes Inpatient Physical Therapy Evaluation Date: 01/01/2019 Referring Doctor: Barron Palafox MD PT Orders: PT CONSULT: Deconditioning Precautions: Fall. Standard. Patient Profile/Admitting Diagnosis: Patient is a 78-year-old female who presented to the ED on 12/31/2018 with chief complaints of failure to thrive, bilateral pulmonary embolism, and congestive heqart failure. Patietn was diagnosed with acute CHF, anemia, deconditioning. Previously, patient was sent to a local SNF to recuperate from another onset CHF from 10/26/2018 through 11/02/2018 but due to lethargy and hypercapnic respiratory failure had to be sent to [facility] on 11/02/2018. On 11/15/2018 while still at [facility], patient was found to have subsegmental pulmonary emboli of the R upper lobe and the basal segment of R lower lobe via chest CT for which anticoagulation was provided. At the ED on 12/22/2018, patient was diagnosed with CHF exacerbation and was admitted to ICU for blood transfusion, IV diuretics, close cardiac monitoring, and medical management. Referral for physical therapy was received to address functional mobility decline, generalized weakness, and impaired activity tolerance. PMHX: Medical History Pericardial effusion without cardiac tamponade (Chronic) H/O carotid atherosclerosis (Chronic) Adenomatous polyp (Chronic) History of meningioma of the brain (Chronic) Seizure disorder (Chronic) Essential hypertension (Chronic) Diabetes type 2, controlled (Chronic) Diastolic heart failure (Chronic ~10/2018) Hypercapnic respiratory failure (Resolved ~10/2018) Adenomatous polyp Diabetes mellitus Hypercholesterolemia Hypertension Murmur Osteopenia Tobacco use Surgical History History of right-sided carotid endarterectomy (Chronic) BTL Colonoscopy - MAC (07/15/17) Endarterectomy, right Extraction of cataract Social History/Home Situation: Patient states that she resides in [place], [place] with long-term family friend Gayla. Per CM notes, patient is on LTC Medicaid CFC; likely an adult family correction setting; unable to confirm. She reports being mostly independent at baseline with some help with Justine. Kanchan reports she is unable to drive and Justine provides her transportation as well. Kanchan reports enjoying [email or web address] books and shares that she has been at [facility] for three weeks and is looking forward to returning home. Current Functional Limitations: Need for assistance with all bed mobility, transfer, and ambulation task performance requiring an assistive ambulatory device Equipment Owned/DME: FWW Subjective: Patient is agreeable to a PT consult and treatment. She states she was at home to be able to go home soon as she is able. She denies dizziness, chest pain nor headache. Objective: General Observation: Patient seen lying in bed with HOB elevated to 30 degrees. Bilateral TEDs to both legs. Thoracic kyphosis with dextroscoliosis. Mental Status: Alert and oriented as to person and place Pain: 0/10 ROM: Right Upper Extremity: Shoulder Flexion WFL. Shoulder abduction WFL. Elbow flexion WFL. Wrist flexion WFL. Functional opening and closing of hand WFL. Left Upper Extremity: Shoulder Flexion WFL. Shoulder abduction WFL. Elbow flexion WFL. Wrist flexion WFL. Functional opening and closing of hand WFL. Right Lower Extremity: Hip flexion achieved up to 20 degrees of hip flexion while seated on chair. Hip abduction WFL. Knee extension -5. Knee flexion WFL. Ankle dorsiflexion WFL. Ankle plantarflexion WFL. Left Lower Extremity: Hip flexion achieved up to 20 degrees of hip flexion while seated on chair. Hip abduction WFL. Knee extension -5. Knee flexion WFL. Ankle dorsiflexion WFL. Ankle plantarflexion WFL. Strength: Right Upper Extremity: Shoulder flexors 4-/5. Shoulder abductors 4-/5. Elbow flexors 4-/5. Elbow extensors 4-/5. Passenger Car Conductor strong. Left Upper Extremity: Shoulder flexors 4-/5. Shoulder abductors 4-/5. Elbow flexors 4-/5. Elbow extensors 4-/5. Passenger Car Conductor strong. Right Lower Extremity: Hip flexors 3-/5. Hip abductors 4-/5. Knee flexors 4-/5. Knee extensors 3-/5. Ankle dorsiflexors 4-/5. Ankle plantarflexors 4-/5. Left Lower Extremity:Hip flexors 3-/5. Hip abductors 4-/5. Knee flexors 4-/5. Knee extensors 3-/5. Ankle dorsiflexors 4-/5. Ankle plantarflexors 4-/5. Bed Mobility/Transfers: Rolling minimal assist with HOB 30 degrees Supine to sit minimal assist HOB 30 degrees Sit to supine minimal assist with FWW Sit to stand minimal assist with FWW Stand to sit minimal assist with FWW Bed to chair minimal assist with FWW Chair to bed minimal assist with FWW Gait: Patient tolerated short distance ambulation of 5 steps forward +1 turn +2 sidesteps and 2 back steps to transfer onto bedside chair using FWW and minimal assist with minimal verbal cueing provided for walker management and safety. Balance: Static Sitting: Good Dynamic Sitting: Fair Static Standing: Fair Dynamic Standing: Fair Special Tests: Mobility Limitations Standardized Measure [facility] AM-PAC 6 clicks Basic Mobility Inpatient Short Form: Raw Score: 18 CMS Score: 4% deficit Informed Consent/Education: Patient instructed in purpose of PT consult and plan of care. Assessment: 78-year-old female with exacerbation of congestive heart failure. Patient presents with clinical signs and symptoms consistent with current/admitting diagnoses that have resulted to mobility limitations, gait instability, generalized weakness, and impairment of motor control as demonstrated by the following impairment level findings: 1. Decreased strength to B LE major muscle groups 2. Impaired sitting/standing balance 3. Impaired activity tolerance Impairments are contributing to the following functional limitations: 1. Dependent bed mobility skills 2. Increased dependence with transfers 3. Inability to safely ambulate without assistive device and physical assistance 4. Increase completion time for mobility ADL performance 5. Increased fall risk 6. Inability to negotiate steps alone safely Patient is assessed as a Moderate 58809 complexity based on the following: History: 78-year-old female with 2 bouts of CHF exacerbation in the past 2 months who was previously independent with ambulation activities and lives with family friends Examination: Underlying impairments and functional limitations as noted above Presentation: Evolving Decision Makin moderate complexity Goals: Goals X1 week 1. Supine-Sit independent 2. Sit-Supine independent 3. Sit-Stand independent 4. Stand-Sit independent 5. Bed-Chair independent 6. Chair-Bed independent 7. Independent gait on level surface with use of least restrictive device for at least 100 feet without report of pain nor dyspnea 8. Independent with home exercise program 9. Good static and dynamic standing balance/tolerance Plan of Care/Treatment Plan: 1-2x/day, 7 days/week x 1 week. Plan of care has been reviewed with the INSTRUCTIONAL SUPPORT SERVICES DIRECTOR providing the service under Physical Therapy direction. Initiate Physical Therapy intervention for strengthening, bed mobility, transfers, gait, stairs, balance training, use of assistive device. DISCHARGE RECOMMENDATIONS: Patient will benefit from long-term facility placement in order to progress mobility level, strength, and balance in preparation for a safe discharge to home. Patient will highly benefit from use of front-wheeled walker in order to increase mobility, increase stability, maximize activity tolerance, and reduce overall fall risk at discharge destination. TREATMENT CODE/TIME: 73171 for 40 minutes, 48283 x 10 minutes beginning at 9:11 AM. Thank you very much for this referral. Janice Gastelum PT, DPT, CLT [facility]
--- NOTE | 2019-01-01 13:33 | PT.INTREAT ---
Date of service: 01/01/19 Time of Service: 13:33 PT Notes Inpatient Physical Therapy Treatment Note [facility] Date: 01/01/2019 PRECAUTIONS: Fall SUBJECTIVE: Kanchan is agreeable to participating in PT this afternoon. OBJECTIVE: PAIN: No complaints of pain. BED MOBILITY/TRANSFERS Sit-stand: CGA Stand-sit: CGA GAIT Assistive Device: FWW Weight bearing: Full Assist: CGA Distance: 20' x4 Deviation: Standing rest x2, seated rest x1, decreased step height THEREX: Patient completed a lower extremity strengthening program, in a seated position, as per flow sheet. ASSESSMENT: Patient tolerated session without complaint. Patient was able to tolerate a progression in gait distance with FWW support and CGA. Patient would benefit from continued gait and transfer training as well as strengthening for improved mobility and improved ability to perform daily functional tasks at a more independent level. PLAN: Continue with PTs POC TREATMENT CODE/TIME: 25 minutes; 08293, [id number]
--- NOTE | 2019-01-01 13:49 | W.INDIABCONS ---
Date of service: 01/01/19 Time of Service: 13:50 Diabetes Inpatient Consult DESCRIPTION/ASSESSMENT: Appreciate diabetes consult for Kanchan Garcia who is 78 years old hospitalized with ambulation concerns. BMI 27 She had a low Fructosamine test which indicates well managed type 2 diabetes. Blood sugars here this hospitalization 103-125 with highest blood sugar last hospitalization of 131mg/dl. She has not required insulin management here but does take 1000mg Metformin twice daily. Her carbohydrate/food intake is not recorded on diabetes flowsheet. At home she is prescribed Lispro on correction scale as well as Metformin. Blood sugars well controlled this hospitalization and apparently overall given fructosamine result. INTERVENTION: No intervention suggested at this time for glycemic management. PLAN: Follow blood sugars and f/u prior to discharge as possible Time Spent in Nutritional Counseling and Treatment: 0
--- NOTE | 2019-01-01 14:28 | OT.INIE ---
Occupational Therapy Notes Inpatient Occupational Therapy Evaluation Date: 01/01/19 Referring Doctor:Hannah Vick MD OT Orders: Eval and Treat Precautions: Fall, Standard PATIENT PROFILE/ADMITTING DIAGNOSIS: Patient is a 78-year-old female who presented to the ER on 12/31/2018 with caregiver reports of failure to thrive, bilateral pulmonary embolism, and congestive heart failure. Patient was then admitted to [facility] with acute CHF and anemia. Prior to this admission, patient was sent to a local SNF for CHF and was then transferred to [facility]. At [facility], patient was found to have subsegmental pulmonary emboli. Pt states that she is in the hospital at this time because she wouldn't get up from her chair and she was getting sicker. Past Medical History: Pericardial effusion without cardiac tamponade (Chronic) H/O carotid atherosclerosis (Chronic) Adenomatous polyp (Chronic) History of meningioma of the brain (Chronic) Seizure disorder (Chronic) Essential hypertension (Chronic) Diabetes type 2, controlled (Chronic) Diastolic heart failure (Chronic ~10/2018) Hypercapnic respiratory failure (Resolved ~10/2018) Adenomatous polyp Diabetes mellitus Hypercholesterolemia Hypertension Murmur Osteopenia Tobacco use Surgical History History of right-sided carotid endarterectomy (Chronic) BTL Colonoscopy - MAC (07/15/17) Endarterectomy, right Extraction of cataract Social History/Home Situation: Pt states that she lives with caregivers/friends in a private home. She reports that she does not perform her own functional mobility. For bathing she has a tub/shower with grab bars in the bathroom. She states that she does not have a shower seat and would not use one if she had one because she can stand and hang on to the bars. OT discussed with pt the importance of safety with bathing routine and she denies the need for bench/chair. Pt performs toileting on a toilet (I), she has (A) from caregiver for LE dressing and with cooking/grocery shopping. Pt states that at times she sometimes just needs help and this is when Justine (caregiver) helps her. Equipment owned/DME: FWW, Cane SUBJECTIVE: Pt states that she is ready to go home and feels good today.She states that when she moves she feels dizzy and then gets anxious and then anxious about feeling anxious. OBJECTIVE: General Observation: O2 nasal cannula, IV (R) UE not connected. Mental Status: A&Ox3 Pain: no c/o pain ROM: RUE AROM WNL L UE AROM WNL STRENGTH: RUE 4/5 throughout globally LUE 4/5 throughout globally FUNCTIONAL MOBILITY/ADLS: Transfers FWW, Min (A) Supine-sit (I) Sit-supine (I) Sit-Stand Min (A) Stand-sit Min (A) Stand-pivot to commode CGA, FWW BATHING Pt denies reporting that she is clean, unless she is going home and then she will get washed up. DRESSING Sitting on side of the bed Dressing UE NT Dressing LE Mod (A) donning and doffing (B) socks. Pt was educated and trained in sock aid, dressing stick and funds transfer clerk. She is able to perform LE dressing with AE with mod vc and good technique. She required deep breathing techniques and visual cues in order to complete. GROOMING Pt denies brushing her teeth, sitting on side of bed pt was able to brush her hair (I). TOILETING On commode with min vc and min (A). EATING NT pt had just finished eating prior to OT arrival. BALANCE: Static sitting Normal Dynamic Sitting Good Static Standing Fair Dynamic Standing Fair SPECIAL TESTS: Daily Activity Limitations Standardized Measure [facility] AM PAC ?6 clicks? Daily Activity Inpatient Short Form: Raw score: 22 INFORMED CONSENT/EDUCATION: Pt instructed in purpose of OT Consult and plan of care. ASSESSMENT: Patient is a 78-year-old female referred to occupational therapy services with diagnosis of failure to thrive, bilateral pulmonary embolism, acute exacerbation COPD and CHF. Patient presents with clinical signs and symptoms consistent with dx, as demonstrated by the following impairment level findings/ functional limitations: decreased functional mobility to perform ADLs/IADLs, decreased dynamic sitting balance due to dizziness, decreased functional activity tolerance, decreased ability to perform ADLs in the sitting position at this time, anxious behavior when leaning forward for functional dressing. OT recommends that pt return SNF for short term rehab stay vs. home with caregivers and HH services when medically cleared per MD. AMPAC score 22 Patient is assessed as a Moderate 16033 complexity based on the following: History: See Above Examination: See Above Presentation: Evolving Decision Making: AMPAC score 22 GOALS Goals x1 week 1. Transfers FWW, (S) 2. Dressing- Sitting (I) 3. Bathing- sitting (I) 4. Toileting- On toilet (I) 5. Eating- (I) 6. Grooming- standing at sink with FWW (I) hair and teeth PLAN OF CARE/TREATMENT PLAN: 1x/day, 5 days/ week x 1week Initiate Occupational Therapy Services for bathing, dressing, grooming, toileting, eating, transfer training. DISCHARGE RECOMMENDATIONS Home with OT services TREATMENT TIME/MINUTES/CODES [id number], [id number], 40 minutes (08:30) Nasreen Clarke OTR/L [facility]
--- NOTE | 2019-01-01 14:40 | W.PM.PROGNOT ---
Date of Service Date of service: 01/01/19 Time of Service: 14:46 Assessment and Plan (1) Diastolic heart failure: Current visit: No Status: Chronic She became hypoxic overnight. BNP elevated this morning at 2600. She had a repeat chest x-ray this morning which showed Increased densities are noted in the lungs in this patient with cardiomegaly and a small left pleural effusion. The findings would be consistent with congestive failure. She is currently on IV lasix. Monitor daily weights and intake and output. (2) Generalized weakness: Current visit: Yes Status: Acute Needs ongoing PT/OT. Will need rehab at SNF prior to returning back home. She needs to ambulate independently at home. Care management is working on discharge to [facility] facility for ongoing rehab. (3) Sacral wound: Current visit: No Status: Acute Continue current wound orders with mepilex. (4) Anemia: Current visit: No Status: Chronic Hgb and Hct stable. Continue iron supplementation with vitamin C. Continue to follow blood counts. (5) Diabetes type 2, controlled: Current visit: No Status: Chronic Well controlled. Monitor blood glucose at , aspart per sliding scale. Continue oral regimen. (6) Essential hypertension: Current visit: No Status: Chronic Well controlled. Continue metoprolol and monitor blood pressure. (7) Seizure disorder: Current visit: No Status: Chronic Continue Keppra. (8) Pulmonary embolism: Current visit: No Status: Chronic Continue lovenox to coumadin bridge. INR remains subtherapeutic at 1.7. Repeat INR in the morning. (9) Anticoagulated on Coumadin: Current visit: No Status: Acute Continue as above. (10) DVT prophylaxis: Current visit: No Status: Acute On lovenox and coumadin. (11) Discharge planning issues: Current visit: Yes Status: Acute She is a DNR/DNI. She has been [facility]. Likely for discharge [facility] tomorrow. This case was discussed with Dr. Vick who is in agreement. Subjective Interval history since last seen: Kanchan reports feeling fine today. She became hypoxic overnight and required oxygen to maintain her saturations. She did have a chest x-ray this morning which showed Increased densities are noted in the lungs in this patient with cardiomegaly and a small left pleural effusion. The findings would be consistent with congestive failure. She denies any shortness of breath, coughing, wheezing, chest pain, pressure, palpitations. She admits to bilateral lower extremity edema. She reports that she is eating and drinking and tolerating her diet. She does not have abdominal pain, nausea, vomiting or diarrhea. She reports that she ambulated in the room with physical therapy. She is agreeable to transfer to [facility] and rehab when a bed is available. Exam Narrative Exam Narrative: General: Very pleasant elderly female, sitting up in the chair, A&OX3, in NAD. Pleasant and cooperative, answers questions appropriately. HEENT: normocephalic, atraumatic, pupils equal and round, EOMI, MMM Neck: Supple, no JVD. Heart: Heart has regular rate and rhythm, soft systolic murmur appreciated. Lungs: respirations even and unlabored, rales to left base. No wheezing. GI: normoactive bowel sounds, abdomen is soft, nontender on palpation, nondistended Extremities: 1-2+ pitting edema to bilateral lower extremities from knees down. pedal pulses palpable bilaterally. Teds on bilaterally. Objective Objective Clinical Data: Abnormal lab results 12/31/18 12/31/18 12/31/18 Range/Units 15:00 15:00 15:00 WBC (4.4-10.8) k/cumm RBC 3.17 L (4.00-5.20) m/cumm Hgb 8.8 L (12.0-15.5) g/dL Hct 29.6 L (36.0-46.0) % MCH (27.0-33.0) pg MCHC 29.7 L (32.0-36.0) g/dL RDW 19.2 H (11.7-14.6) % MPV 7.9 L (8.0-11.0) fL Absolute Lymphocytes 0.96 L (1.2-3.4) k/cumm PT 16.0 H (9.3-11.0) sec INR 1.6 H (0.9-1.1) APTT 32.2 H (21.0-31.4) sec Creatinine (0.55-1.02) mg/dL Glucose 136 H (70-100) mg/dL Calcium 8.4 L (8.5-10.1) mg/dL Magnesium 1.6 L (1.8-2.4) mg/dL NT-Pro-B Natriuret Pep ( - 299) pg/mL Albumin 2.9 L (3.4-5.0) g/dL Ur Leukocyte Esterase (Negative) 12/31/18 01/01/19 01/01/19 Range/Units 15:14 06:51 06:51 WBC 4.20 L (4.4-10.8) k/cumm RBC 3.10 L (4.00-5.20) m/cumm Hgb 8.3 L (12.0-15.5) g/dL Hct 29.2 L (36.0-46.0) % MCH 26.8 L (27.0-33.0) pg MCHC 28.4 L (32.0-36.0) g/dL RDW 19.4 H (11.7-14.6) % MPV (8.0-11.0) fL Absolute Lymphocytes (1.2-3.4) k/cumm PT (9.3-11.0) sec INR (0.9-1.1) APTT (21.0-31.4) sec Creatinine 0.51 L (0.55-1.02) mg/dL Glucose 109 H (70-100) mg/dL Calcium (8.5-10.1) mg/dL Magnesium (1.8-2.4) mg/dL NT-Pro-B Natriuret Pep 2600 H ( - 299) pg/mL Albumin (3.4-5.0) g/dL Ur Leukocyte Esterase Small H (Negative) 01/01/19 Range/Units 06:51 WBC (4.4-10.8) k/cumm RBC (4.00-5.20) m/cumm Hgb (12.0-15.5) g/dL Hct (36.0-46.0) % MCH (27.0-33.0) pg MCHC (32.0-36.0) g/dL RDW (11.7-14.6) % MPV (8.0-11.0) fL Absolute Lymphocytes (1.2-3.4) k/cumm PT 16.7 H (9.3-11.0) sec INR 1.7 H (0.9-1.1) APTT (21.0-31.4) sec Creatinine (0.55-1.02) mg/dL Glucose (70-100) mg/dL Calcium (8.5-10.1) mg/dL Magnesium (1.8-2.4) mg/dL NT-Pro-B Natriuret Pep ( - 299) pg/mL Albumin (3.4-5.0) g/dL Ur Leukocyte Esterase (Negative) Vital Signs Temperature 36.9 C 01/01/19 12:05 Temperature Source Tympanic 01/01/19 12:05 Pulse 65 01/01/19 12:05 Pulse Rhythm Irregular 01/01/19 08:00 Respiratory Rate 18 01/01/19 12:05 Respiratory Effort Non-Labored 01/01/19 08:00 Respiratory Depth Normal 01/01/19 08:00 Respiratory Pattern Normal 01/01/19 08:00 Blood Pressure 109/58 L 01/01/19 12:05 Blood Pressure Position Sitting 12/31/18 14:34 Pulse Oximetry 97 01/01/19 12:05 Oxygen Delivery Method Nasal Cannula 01/01/19 12:05 Oxygen Flow Rate 1 01/01/19 12:05 Pain Level 0 01/01/19 12:05 Comment 01/01/19 12:05 Intake & Output 12/31/18 01/01/19 01/01/19 23:59 11:59 23:59 Intake Total 250 / 250 20 / 20 Output Total 160 / 160 500 / 500 Balance 90 / 90 -480 / -480 Weight 73.6 kg 74.6 kg Intake: IV 20 Oral 250 / 250 0 / 0 Output: Urine 160 / 160 500 / 500 Other: Urine Color Yellow Yellow Urine Appearance Clear Urine Odor Normal Stool Size Moderate Stool Characteristics Soft Brown Voiding Methods Toilet Bedside Commode Laboratory Results WBC 4.20 k/cumm (4.4-10.8) L 01/01/19 06:51 RBC 3.10 m/cumm (4.00-5.20) L 01/01/19 06:51 Hgb 8.3 g/dL (12.0-15.5) L 01/01/19 06:51 Hct 29.2 % (36.0-46.0) L 01/01/19 06:51 MCV 94.2 fL (80-95) 01/01/19 06:51 MCH 26.8 pg (27.0-33.0) L 01/01/19 06:51 MCHC 28.4 g/dL (32.0-36.0) L 01/01/19 06:51 RDW 19.4 % (11.7-14.6) H 01/01/19 06:51 Plt Count 263 x1000/uL (130-400) 01/01/19 06:51 MPV 8.6 fL (8.0-11.0) 01/01/19 06:51 Immature Gran % 0.2 01/01/19 06:51 Neutrophils % 53.1 01/01/19 06:51 Lymphocytes % 29.3 01/01/19 06:51 Monocytes % 13.6 01/01/19 06:51 Eosinophils % 3.6 01/01/19 06:51 Basophils % 0.2 01/01/19 06:51 Absolute Neutrophils 2.23 k/cumm (1.2-6.7) 01/01/19 06:51 Absolute Lymphocytes 1.23 k/cumm (1.2-3.4) 01/01/19 06:51 Absolute Monocytes 0.57 k/cumm (0.11-0.7) 01/01/19 06:51 Absolute Eosinophils 0.15 k/cumm (0.0-0.7) 01/01/19 06:51 Absolute Basophils 0.01 k/cumm (0.0-0.2) 01/01/19 06:51 RBC Morphology See below 12/31/18 15:00 Anisocytosis 1+ 12/31/18 15:00 PT 16.7 sec (9.3-11.0) H 01/01/19 06:51 INR 1.7 (0.9-1.1) H 01/01/19 06:51 APTT 32.2 sec (21.0-31.4) H 12/31/18 15:00 Sodium 139 mmol/L (136-145) 01/01/19 06:51 Potassium 3.9 mmol/L (3.5-5.1) 01/01/19 06:51 Chloride 101 mmol/L (98-107) 01/01/19 06:51 Carbon Dioxide 31.5 mmol/L (21.0-32.0) 01/01/19 06:51 Anion Gap 6.5 mmol/L (3-11) 01/01/19 06:51 BUN 13 mg/dL (7-18) 01/01/19 06:51 Creatinine 0.51 mg/dL (0.55-1.02) L 01/01/19 06:51 Estimated GFR/1.73 m2 >= 60.00 (mL/min/1.73m2) 01/01/19 06:51 Glucose 109 mg/dL (70-100) H 01/01/19 06:51 Calcium 8.5 mg/dL (8.5-10.1) 01/01/19 06:51 Magnesium 1.8 mg/dL (1.8-2.4) 01/01/19 06:51 Total Bilirubin 0.2 mg/dL (0.2-1.0) 12/31/18 15:00 AST 21 U/L (15-37) 12/31/18 15:00 ALT 21 U/L (12-78) 12/31/18 15:00 Alkaline Phosphatase 102 U/L (46-116) 12/31/18 15:00 NT-Pro-B Natriuret Pep 2600 pg/mL (-299) H 01/01/19 06:51 Total Protein 7.0 g/dL (6.4-8.2) 12/31/18 15:00 Albumin 2.9 g/dL (3.4-5.0) L 12/31/18 15:00 Urine Color Yellow (Yellow) 12/31/18 15:14 Urine Clarity Clear 12/31/18 15:14 Urine pH 6.5 (5-8) 12/31/18 15:14 Ur Specific [place] 1.010 (1.005-1.025) 12/31/18 15:14 Urine Protein Negative mg/dL (Negative) 12/31/18 15:14 Urine Ketones Negative mg/dL (Negative) 12/31/18 15:14 Urine Blood Negative (Negative) 12/31/18 15:14 Urine Nitrite Negative (Negative) 12/31/18 15:14 Urine Bilirubin Negative (Negative) 12/31/18 15:14 Urine Urobilinogen 0.2 EU/dL (Up TO 0.2) 12/31/18 15:14 Ur Leukocyte Esterase Small (Negative) H 12/31/18 15:14 Urine RBC Negative (0-2) 12/31/18 15:14 Urine WBC 5-10 HPF (0-5) 12/31/18 15:14 Ur Epithelial Cells Few HPF (Negative) 12/31/18 15:14 Urine Crystals Negative HPF (Negative) 12/31/18 15:14 Urine Bacteria Moderate HPF (Negative) 12/31/18 15:14 Urine Casts Negative LPF (Negative) 12/31/18 15:14 Urine Mucus Moderate (Negative) 12/31/18 15:14 Urine Other Negative (Negative) 12/31/18 15:14 Ur Culture Indicated? Yes 12/31/18 15:14 Urine Glucose Negative mg/dL (Negative) 12/31/18 15:14
--- NOTE | 2019-01-01 14:51 | OTIE_ITS ---
Occupational Therapy Notes Inpatient Occupational Therapy Evaluation Date: 01/01/19 Referring Doctor:Hannah Vick MD OT Orders: Eval and Treat Precautions: Fall, Standard PATIENT PROFILE/ADMITTING DIAGNOSIS: Patient is a 78-year-old female who presented to the ER on 12/31/2018 with caregiver reports of failure to thrive, bilateral pulmonary embolism, and congestive heart failure. Patient was then admitted to [facility] with acute CHF and anemia. Prior to this admission, patient was sent to a local SNF for CHF and was then transferred to [facility]. At [facility], patient was found to have subsegmental pulmonary emboli. Pt states that she is in the hospital at this time because she wouldn't get up from her chair and she was getting sicker. Past Medical History: Pericardial effusion without cardiac tamponade (Chronic) H/O carotid atherosclerosis (Chronic) Adenomatous polyp (Chronic) History of meningioma of the brain (Chronic) Seizure disorder (Chronic) Essential hypertension (Chronic) Diabetes type 2, controlled (Chronic) Diastolic heart failure (Chronic ~10/2018) Hypercapnic respiratory failure (Resolved ~10/2018) Adenomatous polyp Diabetes mellitus Hypercholesterolemia Hypertension Murmur Osteopenia Tobacco use Surgical History History of right-sided carotid endarterectomy (Chronic) BTL Colonoscopy - MAC (07/15/17) Endarterectomy, right Extraction of cataract Social History/Home Situation: Pt states that she lives with caregivers/friends in a private home. She reports that she does not perform her own functional mobility. For bathing she has a tub/shower with grab bars in the bathroom. She states that she does not have a shower seat and would not use one if she had one because she can stand and hang on to the bars. OT discussed with pt the importance of safety with bathing routine and she denies the need for bench/chair. Pt performs toileting on a toilet (I), she has (A) from caregiver for LE dressing and with cooking/grocery shopping. Pt states that at times she sometimes just needs help and this is when Justine (caregiver) helps her. Equipment owned/DME: FWW, Cane SUBJECTIVE: Pt states that she is ready to go home and feels good today.She states that when she moves she feels dizzy and then gets anxious and then anxious about feeling anxious. OBJECTIVE: General Observation: O2 nasal cannula, IV (R) UE not connected. Mental Status: A&Ox3 Pain: no c/o pain ROM: RUE AROM WNL L UE AROM WNL STRENGTH: RUE 4/5 throughout globally LUE 4/5 throughout globally FUNCTIONAL MOBILITY/ADLS: Transfers FWW, Min (A) Supine-sit (I) Sit-supine (I) Sit-Stand Min (A) Stand-sit Min (A) Stand-pivot to commode CGA, FWW BATHING Pt denies reporting that she is clean, unless she is going home and then she will get washed up. DRESSING Sitting on side of the bed Dressing UE NT Dressing LE Mod (A) donning and doffing (B) socks. Pt was educated and trained in sock aid, dressing stick and assistant facility manager. She is able to perform LE dressing with AE with mod vc and good technique. She required deep breathing techniques and visual cues in order to complete. GROOMING Pt denies brushing her teeth, sitting on side of bed pt was able to brush her hair (I). TOILETING On commode with min vc and min (A). EATING NT pt had just finished eating prior to OT arrival. BALANCE: Static sitting Normal Dynamic Sitting Good Static Standing Fair Dynamic Standing Fair SPECIAL TESTS: Daily Activity Limitations Standardized Measure [facility] AM PAC ?6 clicks? Daily Activity Inpatient Short Form: Raw score: 22 INFORMED CONSENT/EDUCATION: Pt instructed in purpose of OT Consult and plan of care. ASSESSMENT: Patient is a 78-year-old female referred to occupational therapy services with diagnosis of failure to thrive, bilateral pulmonary embolism, acute exacerbation COPD and CHF. Patient presents with clinical signs and symptoms consistent with dx, as demonstrated by the following impairment level findings/ functional limitations: decreased functional mobility to perform ADLs/IADLs, decreased dynamic sitting balance due to dizziness, decreased functional activity tolerance, decreased ability to perform ADLs in the sitting position at this time, anxious behavior when leaning forward for functional dressing. OT recommends that pt return SNF for short term rehab stay vs. home with caregivers and HH services when medically cleared per MD. AMPAC score 22 Patient is assessed as a Moderate 44965 complexity based on the following: History: See Above Examination: See Above Presentation: Evolving Decision Making: AMPAC score 22 GOALS Goals x1 week 1. Transfers FWW, (S) 2. Dressing- Sitting (I) 3. Bathing- sitting (I) 4. Toileting- On toilet (I) 5. Eating- (I) 6. Grooming- standing at sink with FWW (I) hair and teeth PLAN OF CARE/TREATMENT PLAN: 1x/day, 5 days/ week x 1week Initiate Occupational Therapy Services for bathing, dressing, grooming, toileting, eating, transfer training. DISCHARGE RECOMMENDATIONS Home with OT services TREATMENT TIME/MINUTES/CODES [id number], [id number], 40 minutes (08:30) Nasreen Clarke OTR/L [facility]
--- NOTE | 2019-01-01 14:56 | CHAPLAIN ---
Kanchan was working on word searches when I stopped in. We remembered each other from a previous admission. She didn't seem to understand why she is here or what the plan is for, but that may be her baseline awareness. She was pleasant and asked for darby membreno when I asked if I could help her with anything.
[2019-01-01] MEDS: Warfarin 5 MG TAB 10 MG PO (18:01)
[2019-01-01] MEDS: Melatonin 3 MG TAB 6 MG PO (20:20)
[2019-01-01] MEDS: Simvastatin 10 MG TAB PO (20:20)
[2019-01-02] VITALS (7 sets, daily range): BP systolic 98–128; BP diastolic 45–71; PULSE 67–83; RESP 16–18; TEMP 36.2–36.7; O2SAT 87–95
[2019-01-02] MEDS: Enoxaparin 80 MG/0.8 ML SYR 70 MG SC (06:04)
[2019-01-02 07:11] LABS: HCT 27.3 % (36.0-46.0); HGB 7.8 g/dL (12.0-15.5); Mean Corp. HGB Concentration 28.6 g/dL (32.0-36.0); Mean Corpuscular Hemoglobin 27.2 pg (27.0-33.0); Mean Corpuscular Volume 95.1 fL (80-95); Mean Platelet Volume 8.6 fL (8.0-11.0); Platelet Count 237 x1000/uL (130-400); RBC 2.87 m/cumm (4.00-5.20); RBC Distribution Width 19.6 % (11.7-14.6)
[2019-01-02 07:18] LABS: Anion Gap 5.5 mmol/L (3-11); BUN 16 mg/dL (7-18); CO2 31.5 mmol/L (21.0-32.0); CREATININE 0.64 mg/dL (0.55-1.02); Calcium 8.2 mg/dL (8.5-10.1); Chloride 103 mmol/L (98-107); Glucose 110 mg/dL (70-100); INR 1.8 (0.9-1.1); Magnesium 1.6 mg/dL (1.8-2.4); Potassium 4.1 mmol/L (3.5-5.1); Prothrombin Time 17.9 sec (9.3-11.0); Sodium 140 mmol/L (136-145)
[2019-01-02] MEDS: Pantoprazole 40 MG TABCR PO (08:08)
[2019-01-02] MEDS: Nystatin POWDER 15 GM JAR TP (08:08)
[2019-01-02] MEDS: Ferrous Sulfate 325 MG TAB PO (08:08)
[2019-01-02] MEDS: metFORMIN 500 MG TAB 1000 MG PO (08:08)
[2019-01-02] MEDS: Folic Acid 1 MG TAB PO (08:08)
[2019-01-02] MEDS: Metoprolol CR 25 MG TABCR 12.5 MG PO (08:08)
[2019-01-02] MEDS: Potassium Chloride 10 MEQ CAPCR 20 MEQ PO (08:09)
[2019-01-02] MEDS: Ascorbic Acid 500 MG TAB PO (08:09)
[2019-01-02] MEDS: Aspirin E.C. 81 MG TABEC PO (08:09)
[2019-01-02] MEDS: levETIRAcetam 500 MG TAB 1000 MG PO (08:09)
[2019-01-02] MEDS: Cyanocobalamin 500 MCG TAB 1000 MCG PO (08:09)
[2019-01-02] MEDS: Furosemide 40 MG/4 ML VIAL IVP (08:10)
[2019-01-02] MEDS: MAGNESIUM SULFATE 2 GM/50 ML BAG IVPB (09:33)
[2019-01-02] MEDS: Magnesium Oxide 400 MG TAB 800 MG PO (09:33)
[2019-01-02] MEDS: Normal Saline Flush 10 ML SYR IVP (09:40)
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
--- NOTE | 2019-01-02 11:56 | OT.INDS ---
Date of service: 01/02/19 Time of Service: 09:30 Occupational Therapy Notes Occupational Therapy Inpatient Discharge Summary Date: 01/02/19 Dates of Service: 01/01/19-01/02/19 Referring Doctor:Hannah Vick MD OT Orders: Eval and Treat Precautions: Fall, Standard PATIENT PROFILE/ADMITTING DIAGNOSIS: Patient is a 78-year-old female who presented to the ER on 12/31/2018 with caregiver reports of failure to thrive, bilateral pulmonary embolism, and congestive heart failure. Patient was then admitted to [facility] with acute CHF and anemia. Prior to this admission, patient was sent to a local SNF for CHF and was then transferred to [facility]. At [facility], patient was found to have subsegmental pulmonary emboli. Pt states that she is in the hospital at this time because she wouldn't get up from her chair and she was getting sicker. Past Medical History: Pericardial effusion without cardiac tamponade (Chronic) H/O carotid atherosclerosis (Chronic) Adenomatous polyp (Chronic) History of meningioma of the brain (Chronic) Seizure disorder (Chronic) Essential hypertension (Chronic) Diabetes type 2, controlled (Chronic) Diastolic heart failure (Chronic ~10/2018) Hypercapnic respiratory failure (Resolved ~10/2018) Adenomatous polyp Diabetes mellitus Hypercholesterolemia Hypertension Murmur Osteopenia Tobacco use Surgical History History of right-sided carotid endarterectomy (Chronic) BTL Colonoscopy - MAC (07/15/17) Endarterectomy, right Extraction of cataract Social History/Home Situation: Pt states that she lives with caregivers/friends in a private home. She reports that she does not perform her own functional mobility. For bathing she has a tub/shower with grab bars in the bathroom. She states that she does not have a shower seat and would not use one if she had one because she can stand and hang on to the bars. OT discussed with pt the importance of safety with bathing routine and she denies the need for bench/chair. Pt performs toileting on a toilet (I), she has (A) from caregiver for LE dressing and with cooking/grocery shopping. Pt states that at times she sometimes just needs help and this is when Justine (caregiver) helps her. Equipment owned/DME: AARONW, [employer] SUBJECTIVE: Pt is agreeable to OT session noting that she is tired today. She reports that she thinks she is leaving. OBJECTIVE: General Observation: O2 nasal cannula, IV (R) UE Mental Status: A&Ox3 Pain: no c/o pain ROM: RUE AROM WNL L UE AROM WNL STRENGTH: RUE 4/5 throughout globally LUE 4/5 throughout globally FUNCTIONAL MOBILITY/ADLS: BATHING Seat, max (A) set up (I) UE/LE DRESSING Sitting on side of the bed Dressing UE NT Dressing LE with AE with min vc and good technique. She required deep breathing techniques and visual cues in order to complete. GROOMING In seated position (I) teeth and hair with max (A) set up TOILETING NT today, (I) prior on commode EATING (I) BALANCE: Static sitting Normal Dynamic Sitting Good ASSESSMENT: Patient is a 78-year-old female referred to occupational therapy services with diagnosis of failure to thrive, bilateral pulmonary embolism, acute exacerbation COPD and CHF. Pt was seen for 2 skilled OT services, she was able to demonstrate increased (I) in ADL/IADL routins in the sitting position. She denies the need to stand for ADLs today reporting that she just would prefer to sit. Pt to be discharged today to SNF when medically cleared per MD. GOALS 1. Transfers FWW, (S) - Not met 2. Dressing- Sitting (I)- Met with AE 3. Bathing- sitting (I) - Met 4. Toileting- On toilet (I)- Met 5. Eating- (I) - Met 6. Grooming- standing at sink with FWW (I) hair and teeth -Not met PLAN OF CARE/TREATMENT PLAN: Pt to be discharged to SNF today. TREATMENT TIME/MINUTES/CODES [id number], 25 minutes (09:30) Nasreen Clarke OTR/[facility]
--- NOTE | 2019-01-02 12:01 | OTDS_ITS ---
Date of service: 01/02/19 Time of Service: 09:30 Occupational Therapy Notes Occupational Therapy Inpatient Discharge Summary Date: 01/02/19 Dates of Service: 01/01/19-01/02/19 Referring Doctor:Hannah Vick MD OT Orders: Eval and Treat Precautions: Fall, Standard PATIENT PROFILE/ADMITTING DIAGNOSIS: Patient is a 78-year-old female who presented to the ER on 12/31/2018 with caregiver reports of failure to thrive, bilateral pulmonary embolism, and congestive heart failure. Patient was then admitted to [facility] with acute CHF and anemia. Prior to this admission, patient was sent to a local SNF for CHF and was then transferred [place] [facility]. [place] [facility], patient was found to have subsegmental pulmonary emboli. Pt states that she is in the hospital at this time because she wouldn't get up from her chair and she was getting sicker. Past Medical History: Pericardial effusion without cardiac tamponade (Chronic) H/O carotid atherosclerosis (Chronic) Adenomatous polyp (Chronic) History of meningioma of the brain (Chronic) Seizure disorder (Chronic) Essential hypertension (Chronic) Diabetes type 2, controlled (Chronic) Diastolic heart failure (Chronic ~10/2018) Hypercapnic respiratory failure (Resolved ~10/2018) Adenomatous polyp Diabetes mellitus Hypercholesterolemia Hypertension Murmur Osteopenia Tobacco use Surgical History History of right-sided carotid endarterectomy (Chronic) BTL Colonoscopy - MAC (07/15/17) Endarterectomy, right Extraction of cataract Social History/Home Situation: Pt states that she lives with caregivers/friends in a private home. She reports that she does not perform her own functional mobility. For bathing she has a tub/shower with grab bars in the bathroom. She states that she does not have a shower seat and would not use one if she had one because she can stand and hang on to the bars. OT discussed with pt the importance of safety with bathing routine and she denies the need for bench/chair. Pt performs toileting on a toilet (I), she has (A) from caregiver for LE dressing and with cooking/grocery shopping. Pt states that at times she sometimes just needs help and this is when Justine (caregiver) helps her. Equipment owned/DME: AARONW, [employer] SUBJECTIVE: Pt is agreeable to OT session noting that she is tired today. She reports that she thinks she is leaving. OBJECTIVE: General Observation: O2 nasal cannula, IV (R) UE Mental Status: A&Ox3 Pain: no c/o pain ROM: RUE AROM WNL L UE AROM WNL STRENGTH: RUE 4/5 throughout globally LUE 4/5 throughout globally FUNCTIONAL MOBILITY/ADLS: BATHING Seat, max (A) set up (I) UE/LE DRESSING Sitting on side of the bed Dressing UE NT Dressing LE with AE with min vc and good technique. She required deep breathing techniques and visual cues in order to complete. GROOMING In seated position (I) teeth and hair with max (A) set up TOILETING NT today, (I) prior on commode EATING (I) BALANCE: Static sitting Normal Dynamic Sitting Good ASSESSMENT: Patient is a 78-year-old female referred to occupational therapy services with diagnosis of failure to thrive, bilateral pulmonary embolism, acute exacerbation COPD and CHF. Pt was seen for 2 skilled OT services, she was able to demonstrate increased (I) in ADL/IADL routins in the sitting position. She denies the need to stand for ADLs today reporting that she just would prefer to sit. Pt to be discharged today to SNF when medically cleared per MD. GOALS 1. Transfers FWW, (S) - Not met 2. Dressing- Sitting (I)- Met with AE 3. Bathing- sitting (I) - Met 4. Toileting- On toilet (I)- Met 5. Eating- (I) - Met 6. Grooming- standing at sink with FWW (I) hair and teeth -Not met PLAN OF CARE/TREATMENT PLAN: Pt to be discharged to SNF today. TREATMENT TIME/MINUTES/CODES [id number], 25 minutes (09:30) Nasreen Clarke OTR/[facility]
--- NOTE | 2019-01-02 17:02 | PDOC.CMDIS ---
- If Service Date Differs Date of service: 01/02/19 Time of Service: 17:02 LACE Index Scoring Tool - Questions: Length of Stay (in days): 3 Acuity (Admit via E.D.?): Yes E.D. Visits: 2 - Answers: Total Score: 8 Risk of Readmission: Low Risk Care Management Discharge Reason for Hospitalization: CHF Discharge Plan: [facility] She was readmitted r/t increased oxygen need and CHF. She will have close follow up at [facility] trending labs including her hgb and hct. She will follow up with provider at the rehab facility. [facility] to provide transportation via wheelchair van. Patient/Family Education Needs: Discharge education and follow up plan of care as well as discharge education and plan of care to the SNF facility. Services Needed at Discharge: Long Term Facility, Transportation
== END 2019-01-02 14:05 | disposition skilled nursing facility (03) ==
LOC: ER 16:49 → MS 18:05
PROVIDERS: Nurse Practitioner; Admitting Provider Internal Medicine; Emergency Provider Emergency Medicine; PCP Family Medicine; Visit Provider Internal Medicine
DX: R53.1 Weakness (principal); D50.0 Iron deficiency anemia secondary to blood loss (chronic); R09.02 Hypoxemia; R60.9 Edema, unspecified; I50.33 Acute on chronic diastolic (congestive) heart failure; R79.1 Abnormal coagulation profile; R19.5 Other fecal abnormalities; G40.909 Epilepsy, unspecified, not intractable, without status epilepticus; I10 Essential (primary) hypertension; E11.9 Type 2 diabetes mellitus without complications; Z79.4 Long term (current) use of insulin; Z86.711 Personal history of pulmonary embolism; Z79.01 Long term (current) use of anticoagulants; Z71.3 Dietary counseling and surveillance; Z66 Do not resuscitate; Z55.0 Illiteracy and low-level literacy
CPT/HCPCS: 36415; 80048; 80053; 85027; 87077; 97110; 97162; 97166; 97530; 97535; 99225; 99239; 99285; 99305; 71045; 81003; 81015; 83735; 83880; 85025; 85610; 85730; 87086; 87186; 99217; 99219; 99284; G0378; J1650; J1940

== ENCOUNTER 2019-01-04 12:12 | Outpatient (REF) | payer MEDICARE, MEDICAID, SELFPAY ==
[2019-01-04 13:46] LABS: Abs Immature Grans 0.02 k/cumm (0.0-0.09); Absolute Basophil Count 0.02 k/cumm (0.0-0.2); Absolute Eosinophil Count 0.07 k/cumm (0.0-0.7); Absolute Lymphocyte Count 1.08 k/cumm (1.2-3.4); Absolute Monocyte Count 0.48 k/cumm (0.11-0.7); Absolute Neutrophil Count 2.21 k/cumm (1.2-6.7); Basophils % 0.5; Eosinophils % 1.8; HCT 29.2 % (36.0-46.0); HGB 8.4 g/dL (12.0-15.5); Immature Grans % 0.5; Lymphocytes % 27.8; Mean Corp. HGB Concentration 28.8 g/dL (32.0-36.0); Mean Corpuscular Volume 97.3 fL (80-95); Mean Platelet Volume 9.3 fL (8.0-11.0); Monocytes % 12.4; Platelet Count 250 x1000/uL (130-400); RBC Distribution Width 19.8 % (11.7-14.6); White Blood Cell Count 3.88 k/cumm (4.4-10.8)
== END 2019-01-04 12:32 ==
LOC: LBN 12:12
PROVIDERS: PCP Family Medicine; Visit Provider Nurse Practitioner Adult Health
DX: I50.1 Left ventricular failure, unspecified (principal)
CPT/HCPCS: 85025

== ENCOUNTER 2019-01-13 11:55 | Outpatient (CLI) | payer MEDICARE, SELFPAY ==
[2019-01-13 13:16] LABS: Absolute Basophil Count 0.01 k/cumm (0.0-0.2); Absolute Eosinophil Count 0.07 k/cumm (0.0-0.7); Absolute Lymphocyte Count 1.11 k/cumm (1.2-3.4); Absolute Monocyte Count 0.58 k/cumm (0.11-0.7); Absolute Neutrophil Count 2.93 k/cumm (1.2-6.7); Basophils % 0.2; Eosinophils % 1.5; HCT 30.5 % (36.0-46.0); HGB 8.8 g/dL (12.0-15.5); Lymphocytes % 23.6; Mean Corp. HGB Concentration 28.9 g/dL (32.0-36.0); Mean Corpuscular Hemoglobin 28.5 pg (27.0-33.0); Mean Corpuscular Volume 98.7 fL (80-95); Monocytes % 12.3; Neutrophils % 62.4; Platelet Count 260 x1000/uL (130-400); RBC 3.09 m/cumm (4.00-5.20)
[2019-01-13 13:30] LABS: Anion Gap 8.4 mmol/L (3-11); BUN 15 mg/dL (7-18); CO2 31.6 mmol/L (21.0-32.0); CREATININE 0.63 mg/dL (0.55-1.02); Calcium 8.7 mg/dL (8.5-10.1); Chloride 100 mmol/L (98-107); Glucose 109 mg/dL (70-100); Potassium 4.1 mmol/L (3.5-5.1); Sodium 140 mmol/L (136-145)
[2019-01-13 13:50] LABS: Hemoglobin A1C 4.4 % (4.5-6.2)
== END 2019-01-13 12:15 ==
PROVIDERS: PCP Family Medicine; Visit Provider Nurse Practitioner Adult Health
DX: E11.9 Type 2 diabetes mellitus without complications (principal); I50.32 Chronic diastolic (congestive) heart failure
CPT/HCPCS: 36415; 80048; 83036; 85025

== ENCOUNTER 2019-01-20 10:28 | Outpatient (CLI) | payer MEDICARE, SELFPAY ==
[2019-01-20 12:01] LABS: Abs Immature Grans 0.01 k/cumm (0.0-0.09); Absolute Basophil Count 0.01 k/cumm (0.0-0.2); Absolute Eosinophil Count 0.07 k/cumm (0.0-0.7); Absolute Lymphocyte Count 1.07 k/cumm (1.2-3.4); Absolute Monocyte Count 0.69 k/cumm (0.11-0.7); Absolute Neutrophil Count 2.87 k/cumm (1.2-6.7); Basophils % 0.2; Eosinophils % 1.5; HCT 29.9 % (36.0-46.0); HGB 8.8 g/dL (12.0-15.5); Immature Grans % 0.2; Lymphocytes % 22.7; Mean Corp. HGB Concentration 29.4 g/dL (32.0-36.0); Mean Corpuscular Hemoglobin 28.9 pg (27.0-33.0); Mean Platelet Volume 9.5 fL (8.0-11.0); Monocytes % 14.6; Neutrophils % 60.8; Platelet Count 183 x1000/uL (130-400); RBC 3.05 m/cumm (4.00-5.20); RBC Distribution Width 15.6 % (11.7-14.6); White Blood Cell Count 4.72 k/cumm (4.4-10.8)
[2019-01-20 13:00] LABS: Anisocytosis 1+; Hypochromasia 2+; Macrocytosis 1+; Polychromasia Present
== END 2019-01-20 10:48 ==
PROVIDERS: PCP Family Medicine; Visit Provider Nurse Practitioner Adult Health
DX: D62 Acute posthemorrhagic anemia
CPT/HCPCS: 36415; 85025

== ENCOUNTER 2019-09-03 16:49 | Outpatient (REF) | payer MEDICARE, SELFPAY ==
[2019-09-03 18:48] LABS: Abs Immature Grans 0.03 k/cumm (0.0-0.09); Absolute Basophil Count 0.01 k/cumm (0.0-0.2); Absolute Eosinophil Count 0.06 k/cumm (0.0-0.7); Absolute Lymphocyte Count 0.94 k/cumm (1.2-3.4); Absolute Monocyte Count 0.72 k/cumm (0.11-0.7); Absolute Neutrophil Count 3.68 k/cumm (1.2-6.7); Basophils % 0.2; Eosinophils % 1.1; HCT 34.4 % (36.0-46.0); HGB 10.1 g/dL (12.0-15.5); Immature Grans % 0.6 %; Lymphocytes % 17.3; Mean Corp. HGB Concentration 29.4 g/dL (32.0-36.0); Mean Corpuscular Hemoglobin 28.7 pg (27.0-33.0); Mean Corpuscular Volume 97.7 fL (80-95); Mean Platelet Volume 8.6 fL (8.0-11.0); Monocytes % 13.2; Neutrophils % 67.6; PHENYTOIN (DILANTIN) 11.1 ug/mL (10.0-20.0); Platelet Count 362 x1000/uL (130-400); RBC 3.52 m/cumm (4.00-5.20); RBC Distribution Width 18.7 % (11.7-14.6); White Blood Cell Count 5.44 k/cumm (4.4-10.8)
[2019-09-03 18:56] LABS: ALT 9 U/L (14-59); AST 15 U/L (15-37); Albumin 2.1 g/dL (3.4-5.0); Alkaline Phosphatase 238 U/L (46-116); Anion Gap 6.1 mmol/L (3-11); BUN 14 mg/dL (7-18); Bilirubin, Total 0.3 mg/dL (0.2-1.0); CO2 32.9 mmol/L (21.0-32.0); CREATININE 0.75 mg/dL (0.55-1.02); Calcium 7.7 mg/dL (8.5-10.1); Chloride 101 mmol/L (98-107); Glucose 143 mg/dL (74-106); Sodium 140 mmol/L (136-145)
[2019-09-03 19:03] LABS: Hemoglobin A1C 5.4 % (3.8-5.6)
== END 2019-09-03 17:09 ==
LOC: LBN 16:49
PROVIDERS: PCP Family Medicine; Visit Provider Nurse Practitioner Adult Health
DX: E11.9 Type 2 diabetes mellitus without complications (principal); I50.32 Chronic diastolic (congestive) heart failure; Z51.81 Encounter for therapeutic drug level monitoring; E78.5 Hyperlipidemia, unspecified; G40.909 Epilepsy, unspecified, not intractable, without status epilepticus
CPT/HCPCS: 80053; 80185; 83036; 85025

== ENCOUNTER 2019-09-07 23:37 | Inpatient (IN) | payer MEDICARE, MEDICAID, SELFPAY ==
[2019-09-07 23:40] VITALS: BP 104/43; PULSE 48; PULSE 54; PULSE 56; RESP 19; RESP 21; TEMP 36.5; O2SAT 88; O2SAT 90
[2019-09-07 23:46] VITALS: BP 105/42; PULSE 53; PULSE 54; RESP 21; O2SAT 91
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
[2019-09-08] VITALS (17 sets, daily range): BP systolic 92–139; BP diastolic 29–80; PULSE 47–59; RESP 18–22; TEMP 35.9–36.8; O2SAT 1–100
[2019-09-08 00:44] LABS: Abs Immature Grans 0.03 k/cumm (0.0-0.09); Absolute Basophil Count 0.02 k/cumm (0.0-0.2); Absolute Eosinophil Count 0.05 k/cumm (0.0-0.7); Absolute Lymphocyte Count 0.81 k/cumm (1.2-3.4); Absolute Monocyte Count 0.59 k/cumm (0.11-0.7); Absolute Neutrophil Count 4.17 k/cumm (1.2-6.7); Basophils % 0.4; Eosinophils % 0.9; HGB 10.4 g/dL (12.0-15.5); Immature Grans % 0.5 %; Lymphocytes % 14.3; Mean Corp. HGB Concentration 30.6 g/dL (32.0-36.0); Mean Corpuscular Hemoglobin 29.7 pg (27.0-33.0); Mean Corpuscular Volume 97.1 fL (80-95); Mean Platelet Volume 8.5 fL (8.0-11.0); Monocytes % 10.4; Neutrophils % 73.5; Platelet Count 395 x1000/uL (130-400); RBC Distribution Width 19.5 % (11.7-14.6); White Blood Cell Count 5.67 k/cumm (4.4-10.8)
[2019-09-08 00:55] LABS: INR 1.1 (0.9-1.1); PTT Activated 26.1 sec (21.0-31.4); Prothrombin Time 11.5 sec (9.3-11.0)
--- NOTE | 2019-09-08 00:56 | DI.CT_ITS ---
EXAM: CT HEAD WO CLINICAL HISTORY: altered mental status TECHNIQUE: Noncontrast COMPARISON: CT HEAD WO from 09/08/2019 FINDINGS: No intracranial hemorrhage, mass or acute infarct is seen. There is an old lacunar infarct in the r ight basal ganglia. There is area of low attenuation in the rosita which could represent artifact versu s old lacunar infarct. There is no evidence of skull fracture. The sinuses and mastoid air cells are unremarkable. There is mild atrophy. IMPRESSION: Old right basal ganglial lacunar infarct. No acute abnormality is identified.
[2019-09-08 01:01] LABS: ALT 12 U/L (14-59); AST 21 U/L (15-37); Alkaline Phosphatase 230 U/L (46-116); Anion Gap 4.8 mmol/L (3-11); BUN 18 mg/dL (7-18); Bilirubin, Total 0.3 mg/dL (0.2-1.0); CO2 32.2 mmol/L (21.0-32.0); CREATININE 0.67 mg/dL (0.55-1.02); Calcium 7.8 mg/dL (8.5-10.1); Chloride 101 mmol/L (98-107); Glucose 131 mg/dL (74-106); Magnesium 1.7 mg/dL (1.8-2.4); NT-proBNP 4034 pg/mL (<300); Potassium 4.6 mmol/L (3.5-5.1); Sodium 138 mmol/L (136-145); Total Protein 6.1 g/dL (6.4-8.2); Troponin I < 0.05 ng/Ml (<0.06)
--- NOTE | 2019-09-08 01:02 | DI.CT_ITS ---
EXAM: CT CHEST PE CTA CLINICAL HISTORY: low blood pressure and oxygen saturation TECHNIQUE: POST IV CONTRAST PE PROTOCOL. Axial CT angiography was performed with multi-slice acquisition and multi-planar and/or 3D reconstruc tions. COMPARISON: CT HEAD WO from 09/08/2019 FINDINGS: There is no evidence of pulmonary emboli or aortic dissection. There are small bilateral pleural effu sions. The heart is enlarged. There is a moderate-sized pericardial effusion. Coronary artery calcifi cations and aortic calcifications are seen. The lungs show significant respiratory motion. No focal a nicole of consolidation is seen. Mild pulmonary edema and mild pneumonitis cannot be excluded. IMPRESSION: Pericardial effusion and small bilateral pleural effusions. Question of mild pulmonary edema. No evid ence of pulmonary emboli.
--- NOTE | 2019-09-08 01:06 | DI.VRAD_ITS ---
Addendum created by Rishabh Machuca MD on 09/08/2019 1:09:20 AM EST Code stroke results discussed with Dr. De Anda. Initial report created on 09/08/2019 1:06:05 AM EST PROCEDURE INFORMATION: Exam: CT Head Without Contrast Exam date and time: 09/08/2019 12:53 AM Age: 79 years old Clinical indication: Altered mental status/memory loss; Confusion or disorientation; Patient HX: AMS TECHNIQUE: Imaging protocol: Computed tomography of the head without contrast. Radiation optimization: All CT scans at this facility use at least one of these dose optimization techniques: automated exposure control; mA and/or kV adjustment per patient size (includes targeted exams where dose is matched to clinical indication); or iterative reconstruction. Other technique: STROKE PROTOCOL was implemented. COMPARISON: No relevant prior studies available. FINDINGS: Brain: Atrophy. Chronic small vessel deep white matter ischemic features are noted as periventricular low attenuation. There is an old lacunar infarct in the right caudate nucleus. The rosita shows central low attenuation and right low attenuation which could represent a previous rosita infarct or chronic small vessel ischemia involving the rosita. No acute intracranial hemorrhage. No mass. No hydrocephaly. No large territory acute CVA. Ventricles: Normal. No ventriculomegaly. Bones/joints: Unremarkable. No acute fracture. Sinuses: Visualized sinuses are unremarkable. No fluid levels. Mastoid air cells: Visualized mastoid air cells are well aerated. Soft tissues: Unremarkable. IMPRESSION: 1. Atrophy and chronic small vessel ischemic features. 2. Low attenuation in the central and right aspect of the rosita may reflect chronic small vessel ischemic disease. Cannot exclude acute infarct. Recommend clinical correlation. MRI would be more sensitive in evaluating for acute small vessel infarct changes. ASSESSMENT: ASPECTS ([place] Stroke Program Early CT Score) is 10 Dictated and Authenticated by: Rishabh Machuca MD. Ordering:PRICIAL Mart MD
[2019-09-08] MEDS: Omnipaque 350 MG/ML 100 ML BTL IJ (01:09)
[2019-09-08] MEDS: Lactated Ringers 1,000 ML 125 ML IV (01:16)
[2019-09-08 01:22] LABS: Bilirubin Small (Negative); Blood Moderate (Negative); Clarity Sl Cloudy (Clear); Glucose Negative (Negative); Ketones Trace mg/dL (Negative); Leukocyte Esterase Small (Negative); Nitrite Negative (Negative); Urobilinogen 0.2 EU/dL (Up TO 0.2)
[2019-09-08 01:35] LABS: Bacteria Moderate HPF (Negative); C & S Indicated? Yes; Epithelial Cells Few HPF (Negative); RBC 20-50 HPF (0-2); WBC 20-50 HPF (0-5)
--- NOTE | 2019-09-08 01:36 | DI.VRAD_ITS ---
PROCEDURE INFORMATION: Exam: CT Angiography Chest With Contrast Exam date and time: 09/08/2019 1:02 AM Age: 79 years old Clinical indication: Other: Low bp< low o2 stat; Patient HX: Low BP, low o2, recent orif of femur FX, AMS TECHNIQUE: Imaging protocol: Computed tomographic angiography of the chest with intravenous contrast. 3D rendering: MIP and/or 3D reconstructed images were created by the technologist. Radiation optimization: All CT scans at this facility use at least one of these dose optimization techniques: automated exposure control; mA and/or kV adjustment per patient size (includes targeted exams where dose is matched to clinical indication); or iterative reconstruction. Contrast material: OMNIPAQUE 350; Contrast volume: 68 ml; Contrast route: IVRAC; COMPARISON: CR XR PORTABLE CHEST AP 01/01/2019 7:51 AM FINDINGS: Pulmonary arteries: Pulmonary arteries are well opacified. There is no evidence of pulmonary arterial embolism. Aorta: Unremarkable. No aortic aneurysm. No aortic dissection. Lungs: Minor increased ground-glass change of the lungs in of diffuse fashion bilaterally could represent early interstitial edema. There is also minor posterior lung base atelectasis. Pleural space: Small bilateral pleural effusions. Heart: There is mild cardiomegaly. There is a small to moderate pericardial effusion. Lymph nodes: Unremarkable. No enlarged lymph nodes. Bones/joints: Degenerative thoracic spine changes. Soft tissues: Previous cholecystectomy.. IMPRESSION: 1. No evidence of pulmonary arterial embolism. 2. Minor interstitial ground-glass pattern of the lungs could represent early edema. 3. Minor bilateral pleural effusions. 4. Cardiomegaly. Small pericardial effusion. Dictated and Authenticated by: Rishabh Machuca MD. Ordering:PRICILA Mart MD
[2019-09-08 01:41] LABS: PHENYTOIN (DILANTIN) 19.8 ug/mL (10.0-20.0)
[2019-09-08] MEDS: cefTRIAXone 1 GM/50 ML BAG IVPB (01:56)
[2019-09-08 02:00] LABS: Lactate 1.1 mmol/L (0.6-1.4)
[2019-09-08] MEDS: Ondansetron 4 MG/2 ML VIAL IVP ×2 (02:32→12:17)
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
[2019-09-08 06:00] LABS: Troponin I < 0.05 ng/Ml (<0.06)
[2019-09-08] MEDS: levETIRAcetam 500 MG TAB 1000 MG PO ×2 (08:58→20:47)
[2019-09-08] MEDS: Cyanocobalamin 500 MCG TAB 1000 MCG PO (08:58)
[2019-09-08] MEDS: Ferrous Sulfate 325 MG TAB PO (08:59)
[2019-09-08] MEDS: Furosemide 20 MG TAB 60 MG PO (08:59)
[2019-09-08] MEDS: Aspirin E.C. 81 MG TABEC PO (08:59)
[2019-09-08] MEDS: Pantoprazole 40 MG TABCR PO ×2 (08:59→20:47)
[2019-09-08] MEDS: Potassium Chloride 10 MEQ CAPCR 20 MEQ PO (08:59)
[2019-09-08] MEDS: Enoxaparin 40 MG/0.4 ML SYR SC (08:59)
[2019-09-08] MEDS: Famotidine 20 MG TAB PO ×2 (08:59→20:47)
[2019-09-08] MEDS: Folic Acid 1 MG TAB PO (10:44)
--- NOTE | 2019-09-08 11:47 | PHARADMIT ---
Admission Pharmacy Clinical Review AMS, UTI Code Status DNR/DNI Current Weight 76.4 kg Renally Cleared and Narrow Therapeutic Index Meds Crcl ~70.8 mL/min using adjusted body weight current meds okay, pt on phenytoin last level 19.8 QTc Value / Action Taken QTc 402 BP Control, Fever BP-125/67 afebrile Electrolytes reviewed mag 1.7 DVT Prophylaxis enoxaparin Opiate Usage / Scheduled Bowel Regimen Ordered no/prn Plt/SCr for Heparin / Enoxaparin plt 395 SCr 0.67 INR for Warfarin n/a H/H stable, WBC/Bands h/h 10.4/34.0 wbc 5.67 Antibiotic appropriateness ceftriaxone for UTI Cultures and Sensitivities MRSA and urine culture pending Surgical ABX d/c within 24 hr n/a DM control / Insulin Dosing BG 131 none Heart Failure (Check EF%) (KI's, B-Block, Diuretics) furosemide, metoprolol IV to PO Switch n/a Home Meds Reviewed -separate admin of ferrous sulfate, levofloxacin and magnesium hydroxide from each other -aspirin enhances the anticoagulation effect of enoxaparin -phenytoin may decrease the serum concentration of simvastatin. consider avoiding concomitant use or watch for decreased therapeutic effects Home Meds Not Ordered glucagon, glucose, insulin aspart, levofloxacin(has other abx ordered), metformin, nystatin, phenytoin, simvastatin Comments -phenytoin held due to level and pt med status, watch for new level (pending) and restart of med -watch mag level, no replacement ordered as of yet -watch BG, no insulin or po meds currently ordered
[2019-09-08] MEDS: Normal Saline Flush 10 ML SYR IVP (12:18)
--- NOTE | 2019-09-08 12:18 | NUR.NOTE ---
Nursing Note: malu has refused both breakfast and lunch. She stated she was nauseous and did not want to eat both times. she was given zofran at 12- , will offer lunch again later
[2019-09-08 12:20] LABS: PHENYTOIN (DILANTIN) 18.6 ug/mL (10.0-20.0)
--- NOTE | 2019-09-08 15:47 | PDOC.CMIN ---
- If Service Date Differs Date of service: 09/08/19 Time of Service: 15:47 Care Management Initial Assess REASON FOR HOSPITALIZATION:: AMS, UTI PAST MEDICAL HISTORY/PAST SURGICAL HISTORY:: Pericardial effusion without cardiac tamponade, H/O carotid atherosclerosis, Adenomatous polyp, History of meningioma of the brain, Seizure disorder, History of right-sided carotid endarterectomy , BTL, Colonoscopy - MAC (07/15/17), Endarterectomy, right, Extraction of cataract, Essential hypertension, Diabetes type 2, controlled, Diastolic heart failure, Hypercapnic respiratory failure, Adenomatous polyp, Diabetes mellitus, Hypercholesterolemia, Hypertension, Murmur, Osteopenia, Tobacco use PREVIOUS FUNCTIONAL STATUS/SOCIAL/FAMILY SUPPORTS:: Kanchan is currently [facility] and receives all her care at the facility. CURRENT FUNCTIONAL STATUS:: Kanchan is lying in bed when CM meets with her; she appears alert and engaged. ADVANCE DIRECTIVES:: [facility] on file Has patient been provided with information about the portal?: Yes Did the patient sign up for the portal?: No CODE STATUS:: DNR/DNI INSURANCE COVERAGE / FINANCIAL ISSUES:: Medicaid and Medicare CURRENT HOME/COMMUNITY SERVICES/EQUIPMENT:: [facility] where she receives all of her care. PRIMARY CARE PHYSICIAN:: Lyle Valencia [facility] POTENTIAL DISCHARGE NEEDS:: Return to [facility] and follow up with primary care provider PATIENT/FAMILY EDUCATION NEEDS:: Discharge education, limitations and follow up plan of care. ANTICIPATED BARRIERS TO DISCHARGE:: None TRANSPORTATION:: [facility] van PLAN:: Kanchan [facility] is medically ready. CM to continue to provide support and discharge planning and disposition.
--- NOTE | 2019-09-08 18:18 | NUR.NOTE ---
Nursing Note: Patient is still very lethargic, has had poor PO intake. She has not wanted to get out of bed, she has been repositioned every 2 hours. Have expressed concerns to ccc on several occasions, still awaiting orders
[2019-09-09] MEDS: cefTRIAXone 1 GM/50 ML BAG IVPB (01:30)
[2019-09-09] MEDS: Normal Saline Flush 10 ML SYR IVP (01:30)
[2019-09-09 04:03] VITALS: BP 113/65; PULSE 59; RESP 18; TEMP 36.8; O2SAT 99
[2019-09-09 07:10] VITALS: BP 117/58; PULSE 61; RESP 18; TEMP 36.8; O2SAT 99
[2019-09-09 08:15] VITALS: O2SAT 100
[2019-09-09] MEDS: Potassium Chloride 10 MEQ CAPCR 20 MEQ PO (08:26)
[2019-09-09] MEDS: levETIRAcetam 500 MG TAB 1000 MG PO (08:26)
[2019-09-09] MEDS: Metoprolol CR 25 MG TABCR PO (08:27)
[2019-09-09] MEDS: Famotidine 20 MG TAB PO (08:27)
[2019-09-09] MEDS: Enoxaparin 40 MG/0.4 ML SYR SC (08:27)
[2019-09-09] MEDS: Ferrous Sulfate 325 MG TAB PO (08:27)
[2019-09-09] MEDS: Pantoprazole 40 MG TABCR PO (08:27)
[2019-09-09] MEDS: Aspirin E.C. 81 MG TABEC PO (08:27)
[2019-09-09] MEDS: Folic Acid 1 MG TAB PO (08:27)
[2019-09-09] MEDS: Cyanocobalamin 500 MCG TAB 1000 MCG PO (08:27)
[2019-09-09] MEDS: Furosemide 20 MG TAB 60 MG PO (08:27)
[2019-09-09 10:12] VITALS: O2SAT 97
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
[2019-09-09 12:10] VITALS: BP 112/66; PULSE 64; RESP 18; TEMP 36.6; O2SAT 95
--- NOTE | 2019-09-09 17:39 | PDOC.CMDIS ---
- If Service Date Differs Date of service: 09/09/19 Time of Service: 17:40 LACE Index Scoring Tool - Questions: Length of Stay (in days): 2 Acuity (Admit via E.D.?): Yes Comorbidities: Diabetes w/o Complication, Congestive Heart Failure E.D. Visits: 3 - Answers: Total Score: 11 Risk of Readmission: High Risk Care Management Discharge Reason for Hospitalization: AMS, UTI Discharge Plan: Pateint to be discharged back to health and rehab today via ambulance. CM coordinated ambulance for transfer. Patient/Family Education Needs: Discharge education, limitation and communication to health and rehab. Services Needed at Discharge: Residential Facility, Transportation
== END 2019-09-09 13:12 | disposition skilled nursing facility (03) | DRG 690 ==
LOC: ER 09-08 02:13 → MS 09-08 03:23
PROVIDERS: Admitting Provider General Practice; Emergency Provider Emergency Medicine; PCP Family Medicine; Visit Provider Family Medicine
DX: N39.0 Urinary tract infection, site not specified (principal); R41.82 Altered mental status, unspecified; R09.02 Hypoxemia; I95.9 Hypotension, unspecified; B96.89 Other specified bacterial agents as the cause of diseases classified elsewhere; L89.152 Pressure ulcer of sacral region, stage 2; E11.9 Type 2 diabetes mellitus without complications; Z79.84 Long term (current) use of oral hypoglycemic drugs; I10 Essential (primary) hypertension; G40.909 Epilepsy, unspecified, not intractable, without status epilepticus; Z87.891 Personal history of nicotine dependence; D64.9 Anemia, unspecified; Z86.711 Personal history of pulmonary embolism; Z79.01 Long term (current) use of anticoagulants
CPT/HCPCS: 36415; 71275; 80053; 87081; 93005; 96361; 96365; 96375; 99222; 99239; 99285; J1650; 70450; 80185; 81003; 81015; 83605; 83735; 83880; 84484; 85025; 85610; 85730; 87086; 93010; 99221; J0696; J2405; J3490

== ENCOUNTER 2019-10-06 09:55 | Outpatient (CLI) | payer MEDICARE, MEDICAID, SELFPAY ==
[2019-10-06 10:58] LABS: Abs Immature Grans 0.01 k/cumm (0.0-0.09); Absolute Basophil Count 0.01 k/cumm (0.0-0.2); Absolute Eosinophil Count 0.08 k/cumm (0.0-0.7); Absolute Lymphocyte Count 1.13 k/cumm (1.2-3.4); Absolute Monocyte Count 0.53 k/cumm (0.11-0.7); Absolute Neutrophil Count 2.68 k/cumm (1.2-6.7); Basophils % 0.2; Eosinophils % 1.8; HCT 35.7 % (36.0-46.0); HGB 11.3 g/dL (12.0-15.5); Immature Grans % 0.2 %; Lymphocytes % 25.5; Mean Corp. HGB Concentration 31.7 g/dL (32.0-36.0); Mean Corpuscular Hemoglobin 30.9 pg (27.0-33.0); Mean Corpuscular Volume 97.5 fL (80-95); Mean Platelet Volume 8.8 fL (8.0-11.0); Monocytes % 11.9; Neutrophils % 60.4; Platelet Count 237 x1000/uL (130-400); RBC 3.66 m/cumm (4.00-5.20); RBC Distribution Width 16.1 % (11.7-14.6); White Blood Cell Count 4.44 k/cumm (4.4-10.8)
[2019-10-06 11:25] LABS: ALT 11 U/L (14-59); AST 10 U/L (15-37); Albumin 2.4 g/dL (3.4-5.0); Alkaline Phosphatase 188 U/L (46-116); Anion Gap 6.1 mmol/L (3-11); BUN 13 mg/dL (7-18); Bilirubin, Total 0.3 mg/dL (0.2-1.0); CO2 32.9 mmol/L (21.0-32.0); CREATININE 0.43 mg/dL (0.55-1.02); Calcium 8.6 mg/dL (8.5-10.1); Chloride 101 mmol/L (98-107); Glucose 125 mg/dL (74-106); Potassium 4.1 mmol/L (3.5-5.1); Sodium 140 mmol/L (136-145); Total Protein 6.2 g/dL (6.4-8.2)
== END 2019-10-06 10:15 ==
PROVIDERS: PCP Family Medicine; Visit Provider Nurse Practitioner Adult Health
DX: R33.9 Retention of urine, unspecified (principal); M62.81 Muscle weakness (generalized); E78.5 Hyperlipidemia, unspecified
CPT/HCPCS: 36415; 80053; 85025

== ENCOUNTER 2019-11-10 13:00 | Outpatient (REF) | payer MEDICARE, MEDICAID, SELFPAY ==
[2019-11-10 13:36] LABS: Abs Immature Grans 0.01 k/cumm (0.0-0.09); Absolute Basophil Count 0.01 k/cumm (0.0-0.2); Absolute Eosinophil Count 0.05 k/cumm (0.0-0.7); Absolute Lymphocyte Count 1.55 k/cumm (1.2-3.4); Absolute Monocyte Count 0.58 k/cumm (0.11-0.7); Absolute Neutrophil Count 3.58 k/cumm (1.2-6.7); Basophils % 0.2; Eosinophils % 0.9; HCT 38.1 % (36.0-46.0); HGB 12.7 g/dL (12.0-15.5); Immature Grans % 0.2 %; Lymphocytes % 26.8; Mean Corp. HGB Concentration 33.3 g/dL (32.0-36.0); Mean Corpuscular Hemoglobin 32.1 pg (27.0-33.0); Mean Corpuscular Volume 96.2 fL (80-95); Mean Platelet Volume 9.5 fL (8.0-11.0); Neutrophils % 61.9; Platelet Count 222 x1000/uL (130-400); RBC 3.96 m/cumm (4.00-5.20); RBC Distribution Width 13.4 % (11.7-14.6); White Blood Cell Count 5.78 k/cumm (4.4-10.8)
[2019-11-10 13:42] LABS: Anion Gap 11.6 mmol/L (3-11); BUN 34 mg/dL (7-18); CO2 25.4 mmol/L (21.0-32.0); CREATININE 0.79 mg/dL (0.55-1.02); Calcium 8.8 mg/dL (8.5-10.1); Chloride 98 mmol/L (98-107); Glucose 202 mg/dL (74-106); Potassium 4.8 mmol/L (3.5-5.1); Sodium 135 mmol/L (136-145)
[2019-11-10 13:44] LABS: PHENYTOIN (DILANTIN) 14.7 ug/mL (10.0-20.0)
[2019-11-11 16:01] LABS: Levetiracetam 14.7 mcg/mL
== END 2019-11-10 13:20 ==
LOC: LBN 13:00
PROVIDERS: PCP Family Medicine; Visit Provider Nurse Practitioner Adult Health
DX: R56.9 Unspecified convulsions (principal); Z51.81 Encounter for therapeutic drug level monitoring; E78.5 Hyperlipidemia, unspecified; Z79.899 Other long term (current) drug therapy
CPT/HCPCS: 80048; 80177; 80185; 85025

== ENCOUNTER 2020-02-23 16:01 | Outpatient (REF) | payer MEDICARE, MEDICAID, SELFPAY ==
[2020-02-23 17:11] LABS: Absolute Eosinophil Count 0.08 k/cumm (0.0-0.7); Absolute Lymphocyte Count 1.12 k/cumm (1.2-3.4); Absolute Monocyte Count 0.63 k/cumm (0.11-0.7); Absolute Neutrophil Count 2.72 k/cumm (1.2-6.7); Eosinophils % 1.8; HCT 34.4 % (36.0-46.0); HGB 10.5 g/dL (12.0-15.5); Lymphocytes % 24.6; Mean Corp. HGB Concentration 30.5 g/dL (32.0-36.0); Mean Corpuscular Hemoglobin 31.3 pg (27.0-33.0); Mean Corpuscular Volume 102.4 fL (80-95); Mean Platelet Volume 8.8 fL (8.0-11.0); Monocytes % 13.8; Neutrophils % 59.8; Platelet Count 182 x1000/uL (130-400); RBC 3.36 m/cumm (4.00-5.20); RBC Distribution Width 12.8 % (11.7-14.6); White Blood Cell Count 4.55 k/cumm (4.4-10.8)
[2020-02-23 17:40] LABS: ALT 20 U/L (14-59); AST 16 U/L (15-37); Albumin 2.5 g/dL (3.4-5.0); Alkaline Phosphatase 119 U/L (46-116); Anion Gap 3.6 mmol/L (3-11); BUN 21 mg/dL (7-18); Bilirubin, Total 0.1 mg/dL (0.2-1.0); CO2 33.4 mmol/L (21.0-32.0); CREATININE 0.49 mg/dL (0.55-1.02); Calcium 8.2 mg/dL (8.5-10.1); Chloride 104 mmol/L (98-107); Ferritin 45 ng/mL (8-252); Glucose 196 mg/dL (74-106); Sodium 141 mmol/L (136-145); Total Protein 5.8 g/dL (6.4-8.2)
[2020-02-23 17:51] LABS: Iron 76 ug/dL (50-170)
[2020-02-23 17:59] LABS: PHENYTOIN (DILANTIN) 5.8 ug/mL (10.0-20.0)
[2020-02-25 16:07] LABS: Levetiracetam 23.5 mcg/mL
== END 2020-02-23 16:21 ==
LOC: LBN 16:01
PROVIDERS: PCP Family Medicine; Visit Provider Family Medicine
DX: D64.9 Anemia, unspecified (principal); R56.9 Unspecified convulsions; Z51.81 Encounter for therapeutic drug level monitoring; I50.32 Chronic diastolic (congestive) heart failure; E11.9 Type 2 diabetes mellitus without complications; M62.81 Muscle weakness (generalized); Z79.899 Other long term (current) drug therapy
CPT/HCPCS: 80053; 80177; 80185; 82728; 83540; 85025

== ENCOUNTER 2020-03-04 16:50 | Outpatient (REF) | payer MEDICARE, MEDICAID, SELFPAY ==
[2020-03-05 14:20] LABS: COVID-19 RT-PCR Result Not Detected ((See Note))
== END 2020-03-04 17:10 ==
LOC: LBN 16:50
PROVIDERS: PCP Family Medicine; Visit Provider Nurse Practitioner Adult Health
DX: Z03.818 Encounter for observation for suspected exposure to other biological agents ruled out (principal)
CPT/HCPCS: U0003

== ENCOUNTER 2020-03-04 16:58 | Outpatient (REF) | payer MEDICARE, MEDICAID, SELFPAY ==
[2020-03-04 17:23] LABS: HCT 34.2 % (36.0-46.0); HGB 10.6 g/dL (12.0-15.5); Mean Corpuscular Hemoglobin 30.8 pg (27.0-33.0); Mean Corpuscular Volume 99.4 fL (80-95); Platelet Count 168 x1000/uL (130-400); RBC 3.44 m/cumm (4.00-5.20); RBC Distribution Width 12.5 % (11.7-14.6); White Blood Cell Count 4.22 k/cumm (4.4-10.8)
[2020-03-04 17:33] LABS: Anion Gap 5.6 mmol/L (3-11); BUN 24 mg/dL (7-18); CO2 32.4 mmol/L (21.0-32.0); CREATININE 0.48 mg/dL (0.55-1.02); Calcium 8.3 mg/dL (8.5-10.1); Chloride 101 mmol/L (98-107); Glucose 166 mg/dL (74-106); Potassium 4.3 mmol/L (3.5-5.1); Sodium 139 mmol/L (136-145)
== END 2020-03-04 17:18 ==
LOC: LBN 16:58
PROVIDERS: PCP Family Medicine; Visit Provider Nurse Practitioner Adult Health
DX: I50.812 Chronic right heart failure (principal); I10 Essential (primary) hypertension; I50.32 Chronic diastolic (congestive) heart failure; E11.9 Type 2 diabetes mellitus without complications
CPT/HCPCS: 80048; 85027